=== PATIENT | female | born 2000 | race Caucasian/White ===

== ENCOUNTER 2022-05-05 16:47 | Inpatient (IN) | payer BC, SELFPAY ==
[2022-05-05 16:57] VITALS: BP 115/57; PULSE 87; RESP 18; TEMP 37.1; O2SAT 99
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
[2022-05-05 18:40] VITALS: BMI 27.6
[2022-05-05 22:00] VITALS: BP 128/90; PULSE 95; RESP 16; TEMP 36.7; O2SAT 99
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
--- NOTE | 2022-05-05 22:42 | PC.NURSE ---
Ros requested not to be awoken at 0600 for her synthroid, reports she normally takes it at home at 0800.
[2022-05-06] MEDS: Levothyroxine Sodium 112 MCG TABLET PO (08:18)
[2022-05-06] MEDS: Venlafaxine HCl ER 37.5 MG CAP.ER.24H PO (08:18)
[2022-05-06 08:43] VITALS: BP 113/57; PULSE 95; RESP 16; TEMP 36.7; O2SAT 100; BMI 27.3
[2022-05-06 09:06] LABS: Estimated Average Glucose 94 mg/dL; Hemoglobin A1c % 4.9 %
--- NOTE | 2022-05-06 09:20 | HO.PM.IMCN ---
History of Present Illness Data of Consult Service Date: 05/06/22 Primary Care Provider: Unknown Physician HPI Reason for consult: Routine Medical Consult This is a 21 yo F who is admitted to inpatient psych. Medical consult requested for routine medical H&P. Pt seen and examined. Denies physical complaints. Reports she has congenital hypothyroidism. PMH Congenital hypothyroidism PSH Denies SH Alcohol use (2-4 drinks, several times a month) Denies tobacco or illicit drugs FH Lung Ca in grandfather Review of Systems Review of Systems: negative except HPI PMFSH Social History Household Members: Family Household Members Other:: lives with mother Housing: House Do you presently have visiting nurse or other home services: No Patient Tobacco Use Status: Never used Tobacco Smoked in Last 30 Days: No e-Cigarette/Vaping Use: Never Used Patient Interested in Nicotine Replacement: No Patient Given Instructions on How to Stop Smoking: No Second Hand Smoke Exposure: No Use of substances other than those prescribed or required for medical reasons: No Currently Displaying Signs/Symptoms of Drug Intoxication Withdrawal: No Any prior treatment program specific to substance use: No Have you been hit, kicked, punched, or otherwise hurt by someone within the past year? If so, by whom?: No Do you feel safe in your current relationship?: Yes Is there a partner from a previous relationship who is making you feel unsafe now?: No Are you made to feel afraid or neglected: No Advance Directives: No Advance Directives Information Provided: No Advance Directives on File: No Do you have thoughts of harming others: None Do you have a plan to hurt others: No Plan Recently lost weight without trying: No How much weight loss: Not applicable Eating poorly because of decreased appetite: No Nutrition screen score: 0 Nutrition Risks: No Nutritional Risk Patient : No : No Poor oral hygiene: No Meds Allergies Allergy/AdvReac Type Severity Reaction Status Date / Time tagamet AdvReac Unknown Vomiting Uncoded 05/05/22 17:48 Active Medications: Current Medications Acetaminophen (Acetaminophen 325 Mg Tablet) 650 mg PO Q6H PRN PRN Reason: Headache/Pain Mild Scale (1-3) Al Hydroxide/Mg Hydroxide (Magnesium Hydrox/Alum Hydrox 30 Ml Oral.Susp) 30 ml PO Q6H PRN PRN Reason: Heartburn/Nausea Hydroxyzine HCl (Hydroxyzine Hcl 25 Mg Tablet) 25 mg PO Q6H PRN PRN Reason: Anxiety Levothyroxine Sodium (Levothyroxine Sodium 112 Mcg Tablet) 112 mcg PO DAILY@0600 [facility] Last Admin: 05/06/22 08:18 Dose: 112 mcg Lorazepam (Lorazepam 0.5 Mg Tablet) 0.5 mg PO BID PRN PRN Reason: Anxiety Magnesium Hydroxide (Milk Of Magnesia 30 Ml Oral.Susp) 30 ml PO DAILY PRN PRN Reason: Constipation Nicotine Polacrilex (Nicotine Polacrilex 2 Mg Gum) 4 mg BUCCAL Q2H PRN PRN Reason: Nicotine Cravings Trazodone HCl (Trazodone Hcl 50 Mg Tablet) 50 mg PO BEDTIME PRN PRN Reason: Insomnia Venlafaxine HCl (Venlafaxine Hcl Er 37.5 Mg Cap.Er.24h) 37.5 mg PO DAILY [facility] Last Admin: 05/06/22 08:18 Dose: 37.5 mg Home Medications Medication Instructions Recorded Confirmed Last Taken Type levothyroxine 112 mcg tablet 112 mcg PO DAILY 05/05/22 05/05/22 Unknown History lorazepam 0.5 mg tablet 0.5 mg PO QID PRN Anxiety 05/05/22 05/05/22 Unknown History venlafaxine 37.5 mg 37.5 mg PO DAILY 05/05/22 05/05/22 Unknown History capsule,extended release 24 hr Physical Exam Vital Signs and Narrative: Vital Signs: Last Vital Signs Temp 98.0 F 05/06/22 08:43 Pulse 95 05/06/22 08:43 Resp 16 05/06/22 08:43 BP 113/57 L 05/06/22 08:43 Pulse Ox 100 05/06/22 08:43 O2 Del Method 05/06/22 08:43 BMI result Body Mass Index 27.3 Const: Other: General - no acute distress, appears comfortable Cardiovascular - regular rate and rhythm, S1-S2 Lungs - normal respiratory effort, clear to auscultation bilaterally, no wheezing Abdomen - soft, nontender, no rebound or guarding Extremities - no edema bilaterally Neuro - awake and alert, no focal deficits; cn 2-12 intact Results Labs CBC and Chem 7: 05/06/22 08:22 Labs: Laboratory Results - last 24 hr 05/06/22 08:22 Estimat Average Glucose 94 Hemoglobin A1c % 4.9 Assessment and Plan (1) Routine medical exam: Status: Acute Plan 21 yo F with congenital hypothyroidism who is admitted to inpatient psych. Patient is medically stable. Continue her synthroid. Will sign off. Please reconsult PRN.
[2022-05-06 09:45] LABS: Alanine Aminotransferase 15 U/L (0-31); Albumin Level 4.3 g/dL (3.5-5.0); Alkaline Phosphatase 52 U/L (39-117); Anion Gap 10 (12-20); Aspartate Amino Transferase 17 U/L (5-31); Bilirubin Direct 0.2 mg/dL (0.0-0.5); Bilirubin Total 0.5 mg/dL (0.0-1.0); Blood Urea Nitrogen 12 mg/dL (9-16); Calcium 9.3 mg/dL (8.4-10.2); Carbon Dioxide 28 mmol/L (22-29); Chloride 104 mmol/L (96-108); Cholesterol 189 mg/dL; Creatinine Clr Calc Pharmacy 104.1; Estimated Glomerular Filt Rate > 60; Glucose Fasting 80 mg/dL (60-99); HDL Cholesterol 61 mg/dL; LDL Cholesterol Calculated 117 mg/dl; Potassium 4.1 mmol/L (3.3-5.1); Sodium 138 mmol/L (135-145); Total Protein 7.5 g/dL (6.5-8.0); Triglycerides 58 mg/dL
[2022-05-06 09:55] LABS: Free T4 (Free Thyroxine) 1.11 ng/dL (0.71-1.85); Thyroid Stimulating Hormone 8.49 uIU/mL (0.32-4.0)
[2022-05-06 10:14] LABS: Folate 17.3 ng/mL (> or = 4.0); Vitamin B12 410 pg/mL (200-900)
[2022-05-06] MEDS: Lithium Carbonate ER 450 MG TABLET.ER PO ×2 (13:16→21:08)
--- NOTE | 2022-05-06 15:00 | HO.PSYCHPN ---
Subjective Subjective Date of Service: 05/06/22 Reason For Visit: SI/ Depression Interim History: pt reports she has been dating someone for the past 2.5 years and has broken up with him four times in that period. she states everyone knows when she is depressed because that's when she breaks up with him. they usually reunite within a couple of weeks. 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 she reports she experiences both depression as well as chronic and severe anxiety. she states that recently the anxiety has been worse, or maybe that the anxiety is the primary problem and drives the depression. she states that because of the constant high anxiety with panic attacks, she became suicidal. MD broaches the mentioning of her increase in SI with recent med increases; her first response is that her mother does not support her being on medications. she does state that she was on prozac in october when she became suicidal. in addition to her current effexor, she also believes she has been tried on lexapro, celexa, and cymbalta. she believes they simply did not help her and also caused leg shaking and insomnia. regarding her recent dose escalation in effexor, she reports at 112.5 she experienced tremors and insomnia and so only took it at that dose for two days. she then continued at 75 mg daily before being decreased to 37.5 mg daily at admission here. she reports that all of the women on her mother's side of the family have substantial to severe anxiety, with an aunt having agoraphobia and her grandmother having OCD. she reports a maternal uncle has bipolar disorder. expresses concern she may be experiencing bipolar disorder as well. pt agrees to leave effexor as it is and try lithium. R/B of lithium discussed, including renal and thyroid toxicity. Mental Status Exam Mental Status Exam Narrative: calm, cooperative. No Tics or Tremors. No abnormal involuntary movements. Mood is depressed and anxious, affect is normo-intense and non-labile. speech nml rate, amount, loudness, tone, latency. Thoughts are coherent, organized, linear, logical. no SI/SIBI/HI/AVH expressed. No known cognitive or memory impairment. Insight/ Judgment limited but adequate. Diagnostics Vital Signs (24Hr): Vital Signs - 24 hr 05/05/22 16:57 05/05/22 22:00 05/06/22 08:43 Temperature 98.7 F 98.1 F 98.0 F Pulse Rate 87 95 95 Respiratory Rate 18 16 16 Blood Pressure 115/57 L 128/90 H 113/57 L Pulse Oximetry 99 99 100 Oxygen Delivery Method Room Air Room Air Room Air BMI result Body Mass Index 27.3 Labs Results: 05/06/22 08:22 Labs: Laboratory Results - last 48 hr 05/06/22 05/06/22 05/06/22 08:22 08:22 08:22 Sodium 138 Potassium 4.1 Chloride 104 Carbon Dioxide 28 Anion Gap 10 L BUN 12 Creatinine 0.84 Estim Creat Clear Calc 104.1 Estimated GFR > 60 Fasting Glucose 80 Estimat Average Glucose 94 Hemoglobin A1c % 4.9 Calcium 9.3 Total Bilirubin 0.5 Direct Bilirubin 0.2 AST 17 ALT 15 Alkaline Phosphatase 52 Total Protein 7.5 Albumin 4.3 Triglycerides 58 Cholesterol 189 LDL Cholesterol, Calc 117 HDL Cholesterol 61 Vitamin B12 410 Folate 17.3 TSH 8.49 H Free T4 1.11 Medications Medications Current Medications Acetaminophen (Acetaminophen 325 Mg Tablet) 650 mg PO Q6H PRN PRN Reason: Headache/Pain Mild Scale (1-3) Al Hydroxide/Mg Hydroxide (Magnesium Hydrox/Alum Hydrox 30 Ml Oral.Susp) 30 ml PO Q6H PRN PRN Reason: Heartburn/Nausea Hydroxyzine HCl (Hydroxyzine Hcl 25 Mg Tablet) 25 mg PO Q6H PRN PRN Reason: Anxiety Levothyroxine Sodium (Levothyroxine Sodium 112 Mcg Tablet) 112 mcg PO DAILY@0600 [facility] Last Admin: 05/06/22 08:18 Dose: 112 mcg [place] Carbonate ([place] Carbonate Er 450 Mg Tablet.Er) 450 mg PO BID [facility] Last Admin: 05/06/22 13:16 Dose: 450 mg Lorazepam (Lorazepam 0.5 Mg Tablet) 0.5 mg PO BID PRN PRN Reason: Anxiety Magnesium Hydroxide (Milk Of Magnesia 30 Ml Oral.Susp) 30 ml PO DAILY PRN PRN Reason: Constipation Nicotine Polacrilex (Nicotine Polacrilex 2 Mg Gum) 4 mg BUCCAL Q2H PRN PRN Reason: Nicotine Cravings Trazodone HCl (Trazodone Hcl 50 Mg Tablet) 50 mg PO BEDTIME PRN PRN Reason: Insomnia Venlafaxine HCl (Venlafaxine Hcl Er 37.5 Mg Cap.Er.24h) 37.5 mg PO DAILY [facility] Last Admin: 05/06/22 08:18 Dose: 37.5 mg Allergies Allergies Allergy/AdvReac Type Severity Reaction Status Date / Time tagamet AdvReac Unknown Vomiting Uncoded 05/05/22 17:48 Assessment & Plan Assessment & Plan (1) MDD (major depressive disorder), recurrent episode, moderate: Status: Acute Code(s): F33.1 - Major depressive disorder, recurrent, moderate (2) Routine medical exam: Status: Acute Code(s): Z00.00 - Encounter for general adult medical examination without abnormal findings Plan would rule out bipolar disorder before proceeding with Tx for unipolar depression. pt's negative reactions to SSRIs and SNRIs, per reported Hx, supports ruling out bipolar disorder, as does pt's very persistent and severe c/o anxiety and panic (which is sometimes a manifestation of lorrie). start lithium 450 BID. if lithium does not create a marked change in her mood, bipolar disorder will be essentially ruled out and treatment approaches to unipolar depression and anxiety disorders can be pursued. I spent ___45___ minutes with the patient and/or on the patient floor today, greater than?50% of which was spent counseling/coordinating care. Reason for contiued inpatient stay Substantial Risk for: harm to self, inability to function and rapid decompensation
[2022-05-06 21:00] VITALS: BP 118/65; PULSE 95; TEMP 36.8; O2SAT 95
[2022-05-07] MEDS: Levothyroxine Sodium 112 MCG TABLET PO (09:29)
[2022-05-07] MEDS: Venlafaxine HCl ER 37.5 MG CAP.ER.24H PO (09:29)
[2022-05-07] MEDS: Lithium Carbonate ER 450 MG TABLET.ER PO (09:29)
[2022-05-07 09:31] VITALS: BP 123/74; PULSE 76; RESP 16; TEMP 36.6; O2SAT 99
[2022-05-07] MEDS: LORazepam 0.5 MG TABLET PO ×2 (12:39→23:58)
--- NOTE | 2022-05-07 15:19 | P.PNPSI_ITS ---
Subjective Subjective Date of Service: 05/07/22 Reason For Visit: SI/ Depression Interim History: pt reprots since admission to the hospital she has had minimal anxiety and no panic or anxiety spikes. she also reports she is not feeling sad. denies SI. states this is what happened when she was admitted at [facility] as well. once on the unit she felt much better in terms of both anxiety and depression but then once she returned home it all came back. suggests this essentially rules out bipolar disorder and lithium can be stopped, which is done. MD discusses clonidine for anxiety/panic and pt declines to consider it due to risk of hypotension and fainting, which she reports she is especially scared of. discuss the possibility of SNRI causing anxiety due to NE component and possibility of trying SSRI only. agrees to zoloft trial, to start at 50 mg daily. effexor DCed. per staff, anx 3 and dep 5. missing home. sleeping well. attending groups. reading, eating. feeling safe on the unit. Mental Status Exam Mental Status Exam Narrative: calm, cooperative. No Tics or Tremors. No abnormal involuntary movements. Mood is not sad, not particularly anxious. affect is full range, normo-intense and non-labile. speech nml rate, amount, loudness, tone, latency. Thoughts are coherent, organized, linear, logical. denies SI. no SIBI/HI/AVH expressed. No known cognitive or memory impairment. Insight/ Judgment limited but adequate. Diagnostics Vital Signs (24Hr): Vital Signs - 24 hr 05/06/22 21:00 05/07/22 09:31 Temperature 98.3 F 97.9 F Pulse Rate 95 76 Respiratory Rate 16 Blood Pressure 118/65 123/74 Pulse Oximetry 95 99 Oxygen Delivery Method Room Air Room Air BMI result Body Mass Index 27.3 Labs Results: 05/06/22 08:22 Labs: Laboratory Results - last 48 hr 05/06/22 05/06/22 05/06/22 08:22 08:22 08:22 Sodium 138 Potassium 4.1 Chloride 104 Carbon Dioxide 28 Anion Gap 10 L BUN 12 Creatinine 0.84 Estim Creat Clear Calc 104.1 Estimated GFR > 60 Fasting Glucose 80 Estimat Average Glucose 94 Hemoglobin A1c % 4.9 Calcium 9.3 Total Bilirubin 0.5 Direct Bilirubin 0.2 AST 17 ALT 15 Alkaline Phosphatase 52 Total Protein 7.5 Albumin 4.3 Triglycerides 58 Cholesterol 189 LDL Cholesterol, Calc 117 HDL Cholesterol 61 Vitamin B12 410 Folate 17.3 TSH 8.49 H Free T4 1.11 Medications Medications Current Medications Acetaminophen (Acetaminophen 325 Mg Tablet) 650 mg PO Q6H PRN PRN Reason: Headache/Pain Mild Scale (1-3) Al Hydroxide/Mg Hydroxide (Magnesium Hydrox/Alum Hydrox 30 Ml Oral.Susp) 30 ml PO Q6H PRN PRN Reason: Heartburn/Nausea Hydroxyzine HCl (Hydroxyzine Hcl 25 Mg Tablet) 25 mg PO Q6H PRN PRN Reason: Anxiety Levothyroxine Sodium (Levothyroxine Sodium 112 Mcg Tablet) 112 mcg PO DAILY@0600 [facility] Last Admin: 05/07/22 09:29 Dose: 112 mcg Lorazepam (Lorazepam 0.5 Mg Tablet) 0.5 mg PO BID PRN PRN Reason: Anxiety Last Admin: 05/07/22 12:39 Dose: 0.5 mg Magnesium Hydroxide (Milk Of Magnesia 30 Ml Oral.Susp) 30 ml PO DAILY PRN PRN Reason: Constipation Nicotine Polacrilex (Nicotine Polacrilex 2 Mg Gum) 4 mg BUCCAL Q2H PRN PRN Reason: Nicotine Cravings Sertraline HCl (Sertraline Hcl 50 Mg Tablet) 50 mg PO DAILY [facility] Trazodone HCl (Trazodone Hcl 50 Mg Tablet) 50 mg PO BEDTIME PRN PRN Reason: Insomnia Allergies Allergies Allergy/AdvReac Type Severity Reaction Status Date / Time tagamet AdvReac Unknown Vomiting Uncoded 05/05/22 17:48 Assessment & Plan Assessment & Plan (1) MDD (major depressive disorder), recurrent episode, moderate: Status: Acute Code(s): F33.1 - Major depressive disorder, recurrent, moderate (2) Routine medical exam: Status: Acute Code(s): Z00.00 - Encounter for general adult medical examination without abnormal findings Plan 05/06: would rule out bipolar disorder before proceeding with Tx for unipolar depression. pt's negative reactions to SSRIs and SNRIs, per reported Hx, supports ruling out bipolar disorder, as does pt's very persistent and severe c/o anxiety and panic (which is sometimes a manifestation of lorrie). start lithium 450 BID. if lithium does not create a marked change in her mood, bip olar disorder will be essentially ruled out and treatment approaches to unipolar depression and anxiety disorders can be pursued. 05/07: pt feels neither depressed nor very anxious. states same happened upon admission to [facility], then she went home and depression and anxiety flooded back. MD observes in this case bipolar disorder unlikely and lithium stopped. pt agrees to DC SNRI in favor of SSRI to minimize risk of med-induced anxiety. zoloft 50 mg daily started today. I spent ___35___ minutes with the patient and/or on the patient floor today, greater than?50% of which was spent counseling/coordinating care. Reason for contiued inpatient stay Substantial Risk for: inability to function and rapid decompensation
[2022-05-07] MEDS: traZODone HCL 50 MG TABLET PO (23:58)
[2022-05-08 08:50] VITALS: BP 137/71; PULSE 76; RESP 20; TEMP 36.6; O2SAT 96
[2022-05-08] MEDS: Levothyroxine Sodium 112 MCG TABLET PO (08:52)
[2022-05-08] MEDS: Sertraline HCL 50 MG TABLET PO (08:52)
--- NOTE | 2022-05-08 17:03 | P.PNPSI_ITS ---
Subjective Subjective Date of Service: 05/08/22 Reason For Visit: SI/ Depression Interim History: started zoloft today. mood right in the middle. not good or bad. just OK. per staff, bright affect. no concerns. Mental Status Exam Mental Status Exam Narrative: calm, cooperative. No Tics or Tremors. No abnormal involuntary movements. Mood is right in the middle. not good or bad. just OK. affect is full range, normo-intense and non-labile. speech nml rate, amount, loudness, tone, latency. Thoughts are coherent, organized, linear, logical. no SI/SIBI/HI/AVH expressed. No known cognitive or memory impairment. Insight/ Judgment limited but adequate. Diagnostics Vital Signs (24Hr): Vital Signs - 24 hr 05/08/22 08:50 Temperature 97.8 F Pulse Rate 76 Respiratory Rate 20 Blood Pressure 137/71 Pulse Oximetry 96 Oxygen Delivery Method Room Air BMI result Body Mass Index 27.3 Labs Results: 05/06/22 08:22 Medications Medications Current Medications Acetaminophen (Acetaminophen 325 Mg Tablet) 650 mg PO Q6H PRN PRN Reason: Headache/Pain Mild Scale (1-3) Al Hydroxide/Mg Hydroxide (Magnesium Hydrox/Alum Hydrox 30 Ml Oral.Susp) 30 ml PO Q6H PRN PRN Reason: Heartburn/Nausea Hydroxyzine HCl (Hydroxyzine Hcl 25 Mg Tablet) 25 mg PO Q6H PRN PRN Reason: Anxiety Levothyroxine Sodium (Levothyroxine Sodium 112 Mcg Tablet) 112 mcg PO DAILY@0600 [facility] Last Admin: 05/08/22 08:52 Dose: 112 mcg Lorazepam (Lorazepam 0.5 Mg Tablet) 0.5 mg PO BID PRN PRN Reason: Anxiety Last Admin: 05/07/22 23:58 Dose: 0.5 mg Magnesium Hydroxide (Milk Of Magnesia 30 Ml Oral.Susp) 30 ml PO DAILY PRN PRN Reason: Constipation Nicotine Polacrilex (Nicotine Polacrilex 2 Mg Gum) 4 mg BUCCAL Q2H PRN PRN Reason: Nicotine Cravings Sertraline HCl (Sertraline Hcl 50 Mg Tablet) 50 mg PO DAILY [facility] Last Admin: 05/08/22 08:52 Dose: 50 mg Trazodone HCl (Trazodone Hcl 50 Mg Tablet) 50 mg PO BEDTIME PRN PRN Reason: Insomnia Last Admin: 05/07/22 23:58 Dose: 50 mg Allergies Allergies Allergy/AdvReac Type Severity Reaction Status Date / Time tagamet AdvReac Unknown Vomiting Uncoded 05/05/22 17:48 Assessment & Plan Assessment & Plan (1) MDD (major depressive disorder), recurrent episode, moderate: Status: Acute Code(s): F33.1 - Major depressive disorder, recurrent, moderate (2) Routine medical exam: Status: Acute Code(s): Z00.00 - Encounter for general adult medical examination without abnormal findings Plan 05/06: would rule out bipolar disorder before proceeding with Tx for unipolar depression. pt's negative reactions to SSRIs and SNRIs, per reported Hx, supports ruling out bipolar disorder, as does pt's very persistent and severe c/o anxiety and panic (which is sometimes a manifestation of lorrie). start lithium 450 BID. if lithium does not create a marked change in her mood, bipolar disorder will be essentially ruled out and treatment approaches to unipolar depression and anxiety disorders can be pursued. 05/07: pt feels neither depressed nor very anxious. states same happened upon a dmission to [place], then she went home and depression and anxiety flooded back. MD observes in this case bipolar disorder unlikely and lithium stopped. pt agrees to DC SNRI in favor of SSRI to minimize risk of med-induced anxiety. zoloft 50 mg daily started today. 05/08: continue current mgmt I spent ___15___ minutes with the patient and/or on the patient floor today, greater than?50% of which was spent counseling/coordinating care. Reason for contiued inpatient stay Substantial Risk for: inability to function and rapid decompensation
[2022-05-08 23:15] VITALS: BP 129/71; PULSE 115; RESP 20; TEMP 36.8; O2SAT 95
[2022-05-08] MEDS: traZODone HCL 50 MG TABLET PO (23:18)
[2022-05-08] MEDS: LORazepam 0.5 MG TABLET PO (23:18)
[2022-05-09 09:20] VITALS: BP 114/67; PULSE 80; RESP 20; TEMP 36.6; O2SAT 97
[2022-05-09] MEDS: Sertraline HCL 50 MG TABLET PO (09:44)
[2022-05-09] MEDS: Levothyroxine Sodium 112 MCG TABLET PO (09:44)
--- NOTE | 2022-05-09 13:56 | P.PNPSI_ITS ---
Subjective Subjective Date of Service: 05/09/22 Reason For Visit: SI/ Depression Interim History: pt feeling melancholy and tired. reports she was very anxious last night, thinking about returning to all the problems and challenges in her life that have not changed. discuss the utility of therapy and medications for her, what is reasonable and achievable. discuss call MD had with her mother of earlier today and her mother's insights regarding that she never has had downtime in her life prior to now and that perhaps it is a difficult transition to spending more time alone and without activities. asks to discharge tuesday. per staff, mother is concerned she has made daughter too busy in her life and now she cannot cope with being alone or having down time. pt is anxious the meds aren't working and she'll be DCed and things will be the same when she gets home. Mental Status Exam Mental Status Exam Narrative: calm, cooperative. No Tics or Tremors. No abnormal involuntary movements. Mood is laurie. could be better. affect is full range, normo-intense and non-labile. speech nml rate, amount, loudness, tone, latency. Thoughts are coherent, organized, linear, logical. no SI/SIBI/HI/AVH expressed. No known cognitive or memory impairment. Insight/ Judgment limited but adequate. Diagnostics Vital Signs (24Hr): Vital Signs - 24 hr 05/08/22 23:15 05/09/22 09:20 Temperature 98.3 F 97.9 F Pulse Rate 115 H 80 Respiratory Rate 20 20 Blood Pressure 129/71 114/67 Pulse Oximetry 95 97 Oxygen Delivery Method Room Air Room Air BMI result Body Mass Index 27.3 Labs Results: 05/06/22 08:22 Medications Medications Current Medications Acetaminophen (Acetaminophen 325 Mg Tablet) 650 mg PO Q6H PRN PRN Reason: Headache/Pain Mild Scale (1-3) Al Hydroxide/Mg Hydroxide (Magnesium Hydrox/Alum Hydrox 30 Ml Oral.Susp) 30 ml PO Q6H PRN PRN Reason: Heartburn/Nausea Alprazolam (Alprazolam 0.25 Mg Tablet) 0.25 mg PO BID PRN PRN Reason: severe anxiety Hydroxyzine HCl (Hydroxyzine Hcl 25 Mg Tablet) 25 mg PO Q6H PRN PRN Reason: Anxiety Levothyroxine Sodium (Levothyroxine Sodium 112 Mcg Tablet) 112 mcg PO DAILY@0600 [facility] Last Admin: 05/09/22 09:44 Dose: 112 mcg Magnesium Hydroxide (Milk Of Magnesia 30 Ml Oral.Susp) 30 ml PO DAILY PRN PRN Reason: Constipation Nicotine Polacrilex (Nicotine Polacrilex 2 Mg Gum) 4 mg BUCCAL Q2H PRN PRN Reason: Nicotine Cravings Sertraline HCl (Sertraline Hcl 50 Mg Tablet) 50 mg PO DAILY [facility] Last Admin: 05/09/22 09:44 Dose: 50 mg Trazodone HCl (Trazodone Hcl 25 Mg Halftab) 25 mg PO BEDTIME PRN PRN Reason: Insomnia Allergies Allergies Allergy/AdvReac Type Severity Reaction Status Date / Time tagamet AdvReac Unknown Vomiting Uncoded 05/05/22 17:48 Assessment & Plan Assessment & Plan (1) MDD (major depressive disorder), recurrent episode, moderate: Status: Acute Code(s): F33.1 - Major depressive disorder, recurrent, moderate (2) Routine medical exam: Status: Acute Code(s): Z00.00 - Encounter for general adult medical examination without abnormal findings Plan 05/06: would rule out bipolar disorder before proceeding with Tx for unipolar dep ression. pt's negative reactions to SSRIs and SNRIs, per reported Hx, supports ruling out bipolar disorder, as does pt's very persistent and severe c/o anxiety and panic (which is sometimes a manifestation of lorrie). start lithium 450 BID. if lithium does not create a marked change in her mood, bipolar disorder will be essentially ruled out and treatment approaches to unipolar depression and an xiety disorders can be pursued. 05/07: pt feels neither depressed nor very anxious. states same happened upon admission to [place], then she went home and depression and anxiety flooded back. MD observes in this case bipolar disorder unlikely and lithium stopped. pt agrees to DC SNRI in favor of SSRI to minimize risk of med-induced anxiety. zoloft 50 mg daily started today. 05/08: continue current mgmt 05/09: decrease trazodone PRN to 25 as 50 appears to be causing lingering sedation in day. DC ativan and start xanax for panic attacks. I spent ___35___ minutes with the patient and/or on the patient floor today, greater than?50% of which was spent counseling/coordinating care. Reason for contiued inpatient stay Substantial Risk for: harm to self, inability to function and rapid decompensation
[2022-05-09 21:05] VITALS: BP 111/73; PULSE 90; RESP 16; TEMP 36.7; O2SAT 100
[2022-05-09] MEDS: traZODone HCL 25 MG HALFTAB PO (23:42)
[2022-05-10 08:57] VITALS: BP 110/71; PULSE 80; RESP 16; TEMP 36.6; O2SAT 99
[2022-05-10] MEDS: Levothyroxine Sodium 112 MCG TABLET PO (08:58)
[2022-05-10] MEDS: Sertraline HCL 50 MG TABLET PO (08:58)
--- NOTE | 2022-05-10 13:44 | P.PNPSI_ITS ---
Subjective Subjective Date of Service: 05/10/22 Reason For Visit: SI/ Depression Interim History: calm, cooperative. bubbly, ebullient. says she is having a good day today, a friend visited this morning. got 7 hrs sleep last night. feeling ready for discharge, needs new providers. plan for discharge tomorrow. per staff, isolative, withdrawn. sedated in the morning. anxious re discharge. dep/anx 5. broke up with BF, denied SI. slept through the night. Mental Status Exam Mental Status Exam Narrative: calm, cooperative. No Tics or Tremors. No abnormal involuntary movements. Mood is euthymic. affect is full range, normo-intense and non-labile. speech nml rate, amount, loudness, tone, latency. Thoughts are coherent, organized, linear, logical. no SI/SIBI/HI/AVH expressed. No known cognitive or memory impairment. Insight/ Judgment limited but adequate. Diagnostics Vital Signs (24Hr): Vital Signs - 24 hr 05/09/22 21:05 05/10/22 08:57 Temperature 98.1 F 97.8 F Pulse Rate 90 80 Respiratory Rate 16 16 Blood Pressure 111/73 110/71 Pulse Oximetry 100 99 Oxygen Delivery Method Room Air Room Air BMI result Body Mass Index 27.3 Labs Results: 05/06/22 08:22 Medications Medications Current Medications Acetaminophen (Acetaminophen 325 Mg Tablet) 650 mg PO Q6H PRN PRN Reason: Headache/Pain Mild Scale (1-3) Al Hydroxide/Mg Hydroxide (Magnesium Hydrox/Alum Hydrox 30 Ml Oral.Susp) 30 ml PO Q6H PRN PRN Reason: Heartburn/Nausea Alprazolam (Alprazolam 0.25 Mg Tablet) 0.25 mg PO BID PRN PRN Reason: severe anxiety Hydroxyzine HCl (Hydroxyzine Hcl 25 Mg Tablet) 25 mg PO Q6H PRN PRN Reason: Anxiety Levothyroxine Sodium (Levothyroxine Sodium 112 Mcg Tablet) 112 mcg PO DAILY@06 00 [facility] Last Admin: 05/10/22 08:58 Dose: 112 mcg Magnesium Hydroxide (Milk Of Magnesia 30 Ml Oral.Susp) 30 ml PO DAILY PRN PRN Reason: Constipation Nicotine Polacrilex (Nicotine Polacrilex 2 Mg Gum) 4 mg BUCCAL Q2H PRN PRN Reason: Nicotine Cravings Sertraline HCl (Sertraline Hcl 50 Mg Tablet) 50 mg PO DAILY [facility] Last Admin: 05/10/22 08:58 Dose: 50 mg Trazodone HCl (Trazodone Hcl 25 Mg Halftab) 25 mg PO BEDTIME PRN PRN Reason: Insomnia Last Admin: 05/09/22 23:42 Dose: 25 mg Allergies Allergies Allergy/AdvReac Type Severity Reaction Status Date / Time tagamet AdvReac Unknown Vomiting Uncoded 05/05/22 17:48 Assessment & Plan Assessment & Plan (1) MDD (major depressive disorder), recurrent episode, moderate: Status: Acute Code(s): F33.1 - Major depressive disorder, recurrent, moderate (2) Routine medical exam: Status: Acute Code(s): Z00.00 - Encounter for general adult medical examination without abnormal findings Plan 05/06: would rule out bipolar disorder before proceeding with Tx for unipolar depression. pt's negative reactions to SSRIs and SNRIs, per reported Hx, supports ruling out bipolar disorder, as does pt's very persistent and severe c/o anxiety and panic (which is sometimes a manifestation of lorrie). start lithium 450 BID. if lithium does not create a marked change in her mood, bipolar disorder will be essentially ruled out and treatment approaches to unipolar depression and anxiety disorders can be pursued. 05/07: pt feels neither depressed nor very anxious. states same happened upon admission to [place], then she went home and depression and anxiety flooded back. MD observes in this case bipolar disorder unlikely and lithium stopped. pt agrees to DC SNRI in favor of SSRI to minimize risk of med-induced anxiety. zoloft 50 mg daily started today. 05/08: continue current mgmt 05/09: decrease trazodone PRN to 25 as 50 appears to be causing lingering sedation in day. DC ativan and start xanax for panic attacks. 05/10: good mood today, had a visitor. interested in discharge tomorrow. no complaints or requests. I spent ____20__ minutes with the patient and/or on the patient floor today, greater than?50% of which was spent counseling/coordinating care. Reason for contiued inpatient stay Substantial Risk for: inability to function and rapid decompensation
[2022-05-10 20:51] VITALS: BP 118/74; PULSE 95; RESP 16; TEMP 36.8; O2SAT 96
[2022-05-10] MEDS: traZODone HCL 25 MG HALFTAB PO (22:35)
[2022-05-11] MEDS: traZODone HCL 25 MG HALFTAB PO (00:18)
[2022-05-11 08:23] VITALS: BP 116/72; PULSE 84; RESP 17; TEMP 36.7; O2SAT 99
[2022-05-11] MEDS: Sertraline HCL 50 MG TABLET PO (08:26)
[2022-05-11] MEDS: Levothyroxine Sodium 112 MCG TABLET PO (08:26)
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
--- NOTE | 2022-05-11 11:32 | PC.NURSE ---
Patient is alert and oriented x4. Patient is pleasant and cooperative upon approach. In agreement with discharge and discharge instructions. Patient reports that she is having some mild anxiety, but it is manageable. I am looking forward to applying the things that I have learned here . Patient denies SI/HI/AH/VH. Patient denies acute physical complaints at this time.
== END 2022-05-11 11:41 | disposition home or self-care (01) | DRG 751 ==
PROVIDERS: Admitting Provider Psychiatry & Neurology Psychiatry; Visit Provider Psychiatry & Neurology Psychiatry
DX: F33.1 Major depressive disorder, recurrent, moderate (principal); R45.851 Suicidal ideations; F41.1 Generalized anxiety disorder; Z79.890 Hormone replacement therapy; Z88.8 Allergy status to other drugs, medicaments and biological substances; Z79.899 Other long term (current) drug therapy
CPT/HCPCS: 36415; 80053; 80061; 80076; 82607; 82746; 83036; 84439; 84443

== ENCOUNTER 2025-01-09 11:12 | Outpatient (REF) | payer BC, SELFPAY ==
[2025-01-09 13:27] LABS: C Reactive Protein < 0.04 mg/dL (< or = 0.50)
[2025-01-09 13:59] LABS: Folate 10.2 ng/mL (> or = 4.0); Vitamin B12 789 pg/mL (200-900)
--- OUTSIDE RECORDS SUMMARY | 2025-01-09 14:22 | XMS_ITS | Encounter Summary ---
Author Organization [facility] Address [address] [place] [address] Care Team Providers Care Fill Manager Name Role Phone Sofia Haddad NP Primary Care Provider [phone] Reason for Visit * Reason Onset Date Comments Med Refill 12/11/2024 Encounter Details Date Type Department Care Team (Late st Contact Info) Description 12/11/2024 Telephone Obstetrics and Gynecology [facility] [address] [place] [phone] Marbella Meredith, [address] [id number] Med Refill Social History Tobacco Use Types [...] for your loved ones. For example, child advocate or elderly care for an older adult? [...] Gynecology - [address] [place] [address] Bailee Albarran DO [address] [address] 01/31/2025 3:30 PM EDT Consult Gastroenterology - [address] [employer] [address] [place] [phone] Radha Sanon, WATERWORKS CHIEF ENGINEER [address] [facility] [address] [place] [address] documented as of this encounter Visit Diagnoses Not on filedocumented in this encounter Additional Health Concerns Assessment Noted Time PHQ-9 Depression Total Score: 0 11/18/19 5:50 PM EST documented as of this encounter Care Teams Fill Manager Relationship Specialty Start Date End Date Sofia Haddad NP [address] [facility] [address] [place] [phone] PCP - General Internal Medicine 01/08/25 documented as of this encounter
--- OUTSIDE RECORDS SUMMARY | 2025-01-09 14:22 | XMS_ITS | Clinical Summary ---
Author Organization [facility] Address [address] [place] [address] Care Team Providers Care Parent Aide Name Role Phone Sofia Haddad NP Primary [...] EST - 01/02/2025 4:25 PM EST Emergency [facility] [address] [place] [address] Abdominal pain, epigastric (Primary Dx) Discharge Disposition: Home or Self Care 01/02/2025 Telephone Obstetrics and Gynecology - [address] [address] Marbella Meredith CNM Med Refill 01/01/2025 9:08 PM EST - 01/01/2025 11:58 PM EST Emergency [facility] [address] [place] [phone] Jose Armando Umana MD PUD (peptic ulcer disease) (Primary Dx) Discharge Disposition: Home or Self Care 12/25/2024 5:22 PM EST - 12/25/2024 11:59 PM EST Hospital Encounter Radiology Department - [address] [address] Dysmenorrhea Discharge Disposition: Home or Self Care 12/11/2024 Telephone Obstetrics and Gynecology - [address] [address] Marbella Meredith CNM Med Refill 12/10/2024 Telephone Obstetrics and Gynecology - [address] [address] Marbella Meredith CNM 11/21/2024 Telephone Obstetrics and Gynecology [address] [address] Marbella Meredith CNM Request For Order(s) 11/19/2024 2:00 PM EST Office Visit Obstetrics and Gynecology - [address] [address] Marbella Meredith CNM Women's annual routine gynecological examination (Primary Dx); Dysmenorrhea; Hypothyroidism, unspecified type from Last 3 Months Immunizations Name Administration Dates Next Due DTaP (Infanrix) 6wks to less than 7yo ,11/01/2002,01/29/2002,11/29,2001 [id number] (Pentacel) 2mo to less than 5yo 11/01/2002,01/29/2002,2001,09/19 [...] Mother's Sister Mercedez Gallardo Other: MGGM with [place] age 35 and Mother's side Breast cancer [...] for your loved ones. For example, child and family therapist or elderly care for an older adult? [...] EDT Office [facility] [address] [place] [address] Bailee lAbarran DO [address] [place] [address] 01/31/2025 3:30 PM EDT Consult Gastroenterology - [address] [place] [address] Radha Sanon, OBSTETRICIAN/GYNECOLOGIST [address] [address] Health Maintenance Due Date Last Done Comments [...] on 01/01/2025 10:33 PM. Workstation Name - [id number] -------- FINAL REPORT -------- Dictated By: Darrius Frausto Dictated Date: 01/01/2025 23:31 ET Assigned Physician: Darrius Frausto Reviewed and Electronically Signed By: Darrius Frausto Signed Date: 01/01/2025 23:33 ET Workstation ID: [id number] Transcribed By: Self Edit Transcribed Date: 01/01/2025 [...] Frausto on 01/01/2025 10:33 PM.Workstation Name - [id number] -------- FINAL REPORT -------- Dictated By: Darrius Frausto Dictated Date: 01/01/2025 23:31 ET Assigned Physician: Darrius Frausto Reviewed and Electronically Signed By: Darrius Frausto Signed Date: 01/01/2025 23:33 ET Workstation ID: [id number] Transcribed By: Self Edit Transcribed Date: 01/01/2025 [...] ED Physician in the absence of a government relations analyst: yes ?? Interpretation: ??Interpretation: normal ?Details: ??Normal sinus rhythm with a ventricular rate of 61 bpm. ??PACs occasionally seen. ??Normal SC, QRS, QTc, axis. ??No acute ischemic changes. us Jose Armando Umana MD ECG ORDERABLES Final Result * ECG 12 lead (01/01/2025 9:37 PM EST) Ventricular Rate ECG 61 BPM GEMUSE Atrial Rate 61 BPM GEMUSE P-R Interval 140 ms GEMUSE QRS Duration 86 ms GEMUSE Q-T Interval 412 ms GEMUSE QTc 414 ms GEMUSE P Wave [place] 35 degrees GEMUSE R [place] 39 degrees GEMUSE T [place] 28 degrees GEMUSE ECG Interpretation Sinus rhythm with premature atrial complexes Otherwise normal ECG No previous ECGs available Confirmed by Nikko Newsome ([id number]) on 01/02/2025 2:12:49 PM GEMUSE 01/01/2025 9:37 PM EST 01/02/2025 2:12 PM EST us Jose Armando Umana MD ECG ORDERABLES Final Result GEMUSE * (ABNORMAL) CBC auto differential (01/01/2025 9:21 PM EST) Pathologist [facility] WBC 7.4 4.0 - 10.5 K/mcL LAB HEMETOLOGY METHOD 01/01/2025 9:35 PM [facility] RBC 4.46 4.20 - 5.40 M/mcL LAB HEMETOLOGY METHOD 01/01/2025 9:35 PM [facility] Hemoglobin 13.3 12.5 - 16.0 g/dL LAB HEMETOLOGY METHOD 01/01/2025 9:35 PM [facility] Hematocrit 39.2 37.0 - 47.0 % LAB HEMETOLOGY METHOD 01/01/2025 9:35 PM [facility] MCV 87.9 78.0 - 100.0 FL LAB HEMETOLOGY METHOD 01/01/2025 9:35 PM [facility] MCH 29.8 25.0 - 33.0 pcg LAB HEMETOLOGY METHOD 01/01/2025 9:35 PM [facility] MCHC 33.9 32.0 - 36.0 g/dL LAB HEMETOLOGY METHOD 01/01/2025 9:35 PM [facility] RDW 11.4(L) 12.1 - 16.2 % LAB HEMETOLOGY METHOD 01/01/2025 9:35 PM [facility] Platelets 271 150 - 450 K/mcL LAB HEMETOLOGY METHOD 01/01/2025 9:35 PM [facility] MPV 9.1 7.4 - 11.4 FL LAB HEMETOLOGY METHOD 01/01/2025 9:35 PM [facility] Neutrophils Relative 40.4(L) 44.0 - 74.0 % LAB HEMETOLOGY METHOD 01/01/2025 9:35 PM [facility] Lymphocytes Relative 50.0(H) 20.0 - 48.0 % LAB HEMETOLOGY METHOD 01/01/2025 9:35 PM [facility] Monocytes Relative 7.4 2.0 - 12.0 % LAB HEMETOLOGY METHOD 01/01/2025 9:35 PM [facility] Eosinophils Relative 1.4 0.0 - 6.0 % LAB HEMETOLOGY METHOD 01/01/2025 9:35 PM [facility] Basophils Relative 0.7 0.0 - 2.0 % LAB HEMETOLOGY METHOD 01/01/2025 9:35 PM [facility] Neutrophils Absolute 2.99 1.80 - 7.80 K/mcL LAB HEMETOLOGY METHOD 01/01/2025 9:35 PM [facility] Lymphocytes Absolute 3.70(H) 1.00 - 3.20 K/mcL LAB HEMETOLOGY METHOD 01/01/2025 9:35 PM [facility] Monocytes Absolute 0.55 0.00 - 0.80 K/mcL LAB HEMETOLOGY METHOD 01/01/2025 9:35 PM [facility] Eosinophils Absolute 0.10 0.00 - 0.50 K/mcL LAB HEMETOLOGY METHOD 01/01/2025 9:35 PM [facility] Basophils Absolute 0.05 0.00 - 0.20 K/mcL LAB HEMETOLOGY METHOD 01/01/2025 9:35 PM [facility] Blood Venous blood specimen / Unknown Venipuncture / Unknown 01/01/2025 9:21 PM EST 01/01/2025 9:33 PM EST Jose Armando Umana MD LAB BLOOD ORDERABLES Final Res ult [facility] [address] [place] [address], [place] [phone] * Lipase (01/01/2025 9:21 PM EST) [facility] Lipase 19 11 - 82 unit/L LAB CHEMISTRY METHOD 01/01/2025 9:57 PM EST [facility] Blood Venous blood specimen / Unknown Venipuncture / Unknown 01/01/2025 9:21 PM EST 01/01/2025 9:33 PM EST Jose Armando Umana MD LAB BLOOD ORDERABLES Final Res ult [facility] [address] [place] [address], [place] [phone] * Hepatic function panel (01/01/2025 9:21 PM EST) [facility] Total Protein 7.1 6.4 - 8.5 g/dL LAB CHEMISTRY METHOD 01/01/2025 9:57 PM EST [facility] Albumin 4.3 3.5 - 5.0 g/dL LAB CHEMISTRY METHOD 01/01/2025 9:57 PM EST [facility] Total Bilirubin 0.4 0.3 - 1.0 mg/dL LAB CHEMISTRY METHOD 01/01/2025 9:57 PM EST [facility] Bilirubin, Direct 0.1 0.0 - 0.2 mg/dL LAB CHEMISTRY METHOD 01/01/2025 9:57 PM EST [facility] Bilirubin, Indirect 0.3 mg/dL LAB CHEMISTRY METHOD 01/01/2025 9:57 PM [facility] ALT (SGPT) 12 7 - 52 unit/L LAB CHEMISTRY METHOD 01/01/2025 9:57 PM [facility] AST (SGOT) 17 5 - 40 unit/L LAB CHEMISTRY METHOD 01/01/2025 9:57 PM [facility] Alkaline Phosphatase 39 34 - 104 unit/L LAB CHEMISTRY METHOD 01/01/2025 9:57 PM [facility] Blood Venous blood specimen / Unknown Venipuncture / Unknown 01/01/2025 9:21 PM EST 01/01/2025 9:33 PM EST Jose Armando Umana MD LAB BLOOD ORDERABLES Final Res ult [facility] [address] [place] [address], [place] [phone] * Basic metabolic panel (01/01/2025 9:21 PM EST) Sodium 136 135 - 145 mmol/L LAB CHEMISTRY METHOD 01/01/2025 9:57 PM [facility] Potassium 3.8 3.5 - 5.1 mmol/L LAB CHEMISTRY METHOD 01/01/2025 9:57 PM [facility] Chloride 103 98 - 107 mmol/L LAB CHEMISTRY METHOD 01/01/2025 9:57 PM [facility] CO2 27 24 - 32 mmol/L LAB CHEMISTRY METHOD 01/01/2025 9:57 PM [facility] Anion Gap 6 5 - 14 LAB CHEMISTRY METHOD 01/01/2025 9:57 PM [facility] Glucose 91 70 - 199 mg/dL LAB CHEMISTRY METHOD 01/01/2025 9:57 PM [facility] BUN 17 7 - 17 mg/dL LAB CHEMISTRY METHOD 01/01/2025 9:57 PM EST [facility] Creatinine 0.96 0.50 - 1.00 mg/dL LAB CHEMISTRY METHOD 01/01/2025 9:57 PM [facility] eGFR 85 >=60 mL/min/1. 73m2 LAB CHEMISTRY METHOD 01/01/2025 9:57 PM [facility] Comment:Calculation based on the??Chronic Kidney Disease Epidemiology Collaboration (CKD-EPI) equation refit??without adjustment for race. BUN/Creatinine Ratio 17.7 12.0 - 20.0 LAB CHEMISTRY METHOD 01/01/2025 9:57 PM [facility] Calcium 9.2 8.4 - 10.2 mg/dL LAB CHEMISTRY METHOD 01/01/2025 9:57 PM [facility] Blood Venous blood specimen / Unknown Venipuncture / Unknown 01/01/2025 9:21 PM EST 01/01/2025 9:33 PM EST us Jose Armando Umana MD LAB BLOOD ORDERABLES Final Res ult [facility] [address] [place] [address], [place] [phone] * (ABNORMAL) Urinalysis with reflex microscopic and culture (01/01/2025 9:18 PM EST) Color, Urine Yellow Colorless, Yellow LAB URINALYSIS - AUTOMATED METHOD 01/01/2025 9:36 PM EST [facility] Clarity, Urine Slightly Cloudy(A) Clear LAB URINALYSIS - AUTOMATED METHOD 01/01/2025 9:36 PM [facility] Specific [place] Urine >=1.030 1.005 - 1.030 LAB URINALYSIS - AUTOMATED METHOD 01/01/2025 9:36 PM [facility] pH, Urine 5.5 5.0 - 8.0 pH LAB URINALYSIS - AUTOMATED METHOD 01/01/2025 9:36 PM [facility] Leukocytes, Urine Negative Negative WBCs/mcL LAB URINALYSIS - AUTOMATED METHOD 01/01/2025 9:36 PM [facility] Nitrite, Urine Negative Negative LAB URINALYSIS - AUTOMATED METHOD 01/01/2025 9:36 PM [facility] Protein, Urine 30(A) Negative mg/dL LAB URINALYSIS - AUTOMATED METHOD 01/01/2025 9:36 PM [facility] Glucose, Urine Negative Negative mg/dL LAB URINALYSIS - AUTOMATED METHOD 01/01/2025 9:36 PM [facility] Ketones, Urine Negative Negative mg/dL LAB URINALYSIS - AUTOMATED METHOD 01/01/2025 9:36 PM [facility] Blood, Urine Trace(A) Negative mg/dL LAB URINALYSIS - AUTOMATED METHOD 01/01/2025 9:36 PM [facility] Urine Urine specimen obtained by clean catch procedure / Unknown Non-blood Collection / Unknown 01/01/2025 9:18 PM EST 01/01/2025 9:33 PM EST us Jose Armando Umana MD LAB URINE ORDERABLES Final Res ult [facility] [address] [place] [address], [place] [phone] * (ABNORMAL) Urinalysis microscopic reflex urine culture (01/01/2025 9:18 PM EST) RBC, Urine 4(H) 0 - 3 /HPF 01/01/2025 9:40 PM EST [facility] WBC, Urine 4 0 - 5 /HPF 01/01/2025 9:40 PM EST [facility] Bacteria, Urine 1+(A) None /HPF 9:40 PM EST [facility] Squamous Epithelial, Urine 6(H) 0 - 5 /HPF 01/01/2025 9:40 PM EST [facility] Mucus, UA 1+ None /LPF 01/01/2025 9:40 PM EST [facility] Urine Urine specimen obtained by clean catch procedure / Unknown Non-blood Collection / Unknown 01/01/2025 9:18 PM EST 01/01/2025 9:33 PM EST Jose Armando Umana MD LAB URINE ORDERABLES Final Res ult Performing Organization Address City/[facility]/ZIP Co de Phone Number [facility] [address] [place] [address], [place] [phone] * Culture urine (01/01/2025 9:18 PM EST) Culture, Urine Mixed urogenital otto, no uropathogens present. Suggest repeat specimen, if clinically indicated. 01/03/2025 8:32 AM EST [facility] Urine Urine specimen obtained by clean catch procedure / Unknown Non-blood Collection / Unknown 01/01/2025 9:18 PM EST 01/01/2025 9:40 PM EST Jose Armando Umana MD LAB MICROBIOLOGY - GENERAL ORD ERABLES Final Result Performing Organization Address City/[facility]/ZIP Co de Phone Number [facility] [address] [place] [address], [place] [phone] * US Pelvis Non OB Complete w Transvaginal (12/25/2024 5:55 PM EST) Anatomical Region Laterality Modality Body, Pelvis Ultrasound 12/26/2024 8:08 AM EST Impressions 12/26/2024 8:11 AM EST No uterine or ovarian abnormality. POS [id number] -------- FINAL REPORT -------- Dictated By: Krystle Granger Dictated Date: 12/26/2024 08:08 ET Assigned Physician: Krystle Granger Reviewed and Electronically Signed By: Krystle Granger Signed Date: 12/26/2024 08:11 ET Workstation ID: [id number] Transcribed By: Self Edit Transcribed Date: 12/26/2024 [...] IMPRESSION: No uterine or ovarian abnormality. POS [id number] -------- FINAL REPORT -------- Dictated By: Krystle Granger Dictated Date: 12/26/2024 08:08 ET Assigned Physician: Krystle Granger Reviewed and Electronically Signed By: Krystle Granger Signed Date: 12/26/2024 08:11 ET Workstation ID: [id number] Transcribed By: Self Edit Transcribed Date: 12/26/2024 08:08 ET us Marbella Meredith CNM IMG US PROCEDURES Final Res ult * Chlamydia trachomatis and neisseria gonorrhoeae by tma, thinprep (11/19/2024 2:33 PM EST) N. gonorrhoeae, RNA Probe Negative Negative LAB MICROBIOLOGY METHOD 11/20/2024 12:[address] [facility] Chlamydia, RNA Probe Negative Negative LAB MICROBIOLOGY METHOD 11/20/2024 12:[address] [facility] Broom Cervix uteri structure / Unknown 11/19/2024 2:33 PM EST 11/20/2024 6:59 AM EST Marbella SAHA LAB CYTOLOGY ORDERABLES Fin al Result [facility] [address] [place] [address], [place] [phone] * Trichomonas vaginalis molecular study (11/19/2024 2:33 PM EST) Trichomonas vaginalis Negative Negative LAB MICROBIOLOGY METHOD 11/20/2024 12:[address] [facility] Broom Cervix uteri structure / Unknown 11/19/2024 2:33 PM EST 11/20/2024 6:59 AM EST us Marbella Meredith CNM LAB BLOOD ORDERABLES Final Result [facility] [address] [place] [address], [place] [phone] * Pap smear (11/19/2024 2:33 PM EST) Interpretation Negative for intraepithelial lesion or malignancy 11/22/2024 7:43 PM [facility] General Categorization Negative 11/22/2024 7:43 PM [facility] LMP 11/14/2024 11/22/2024 7:43 PM [facility] Specimen Adequacy Satisfactory for evaluation, endocervical/parisi sformation zone component present 11/22/2024 7:43 PM [facility] Pap Methodology Liquid Based Pap Test 11/22/2024 7:43 PM [facility] Disclaimer The Pap test is a screening test which carries an inherent false negative rate. These test results should be correlated with the patient's clinical findings and history. This Pap test was processed using an automated screening system. Technical cytopathology services provided by [facility], at [address] [place] [address] (CLIA # [id number]/Earle Parker MD, Recreational Aide.) 11/22/2024 7:43 PM [facility] Console Pap Interpretation Reported 11/22/2024 7:43 PM [facility] Broom Cervix uteri structure / Unknown 11/19/2024 2:33 PM EST 11/19/2024 2:33 PM EST Marbella Meredith [facility] CYTOLOGY ORDERABLES Fin al Result [facility] [address] [place] [address], * Lipid panel (03/23/2023) LDL/HDL Ratio 3 0 - 4 Triglycerides 48 0 - 150 mg/dL Cholesterol 172 0 - 200 mg/dL HDL 67 >=40 mg/dL LDL Cholesterol 96 0 - 100 mg/dL Blood Venous blood specimen / Unknown us Historical Provider LAB BLOOD ORDERABLES Pinky maria teresa Result from Last 3 Months or Most Recently Relevant to Health Maintenance Insurance [facility] Care Teams Parent Aide Relationship Specialty Start Date End Date Sofia Haddad NP [address] [place] [address] PCP - General Internal Medicine 01/08/25
--- OUTSIDE RECORDS SUMMARY | 2025-01-09 14:22 | XMS_ITS | Encounter Summary ---
Author Organization [facility] Address [address] [place] [address] Care Team Providers Care Packaging Engineer Name Role Phone Nani Soler MD Primary Care Provider [phone] Reason for Visit * Reason Comments Abdominal Pain Pt seen here yesterd ay for abd pain, dx with PUD with outpt follow up with GI. Pt given script for omeprazole. Encounter Details Date Type Department Care Team (Late st Contact Info) Description 01/02/2025 2:22 PM EST - 01/02/2025 4:25 PM EST [facility] Emergency [address] [place] [address] Abdominal pain, epigastric (Primary Dx) [...] for your loved ones. For example, child welfare social worker or elderly care for an older adult? [...] Care Everywhere. * Acid-Reducing Medicines: General Info ([place]) documented in this encounter Medications at Time [...] Grandfather Prem Gallardo Other (Other: MGGM with [place] age 35 and ) Mother's side Breast [...] discomfort. Patient educated that she can continue [id number] Maalox for further relief of symptoms Patient is safe for discharge with plan to manage discomfort or fevers with [id number] Tylenol and/or NSAIDS such as Motrin or [...] management and/or test interpretation with external health health care aide [] Admission/Observation - Patient's presentation, diagnostics, and/or [...] me for clarification. Padmini Mccarthy NP 01/02/25 6511 Padmini Mccarthy NP 01/02/25 8080 Cosigned by Murray Shearer MD at 01/02/2025 [...] Gynecology - [address] [place] [address] Bailee Albarran DO [address] [place] [address] 01/31/2025 3:30 PM EDT Consult Gastroenterology - [address] [place] [address] Radha Sanon, RADIATOR REPAIRER [address] [place] [address] documented as of this encounter Visit Diagnoses [...] documented as of this encounter Care Teams Packaging Engineer Relationship Specialty Start Date End Date Nani Soler MD PCP - General 02/03/23 01/07/25 documented as of this encounter
--- OUTSIDE RECORDS SUMMARY | 2025-01-09 14:22 | XMS_ITS | Encounter Summary ---
Author Organization [facility] Address [address] [place] [address] Care Team Providers Care Mattress And Foundation Sewer Name Role Phone Nani Soler MD Primary Care Provider [phone] Reason for Referral * Imaging (Routine) - Pending Review Specialty Diagnoses / Procedures Referred By Maria Cac zohra Referred To Contact Radiology Diagnoses Dysmenorrhea Procedures US Pelvis Non OB Complete w Transvaginal Marbella Meredith CNM [address] [place] [address] Phone: tel: fax: [facility] Referral ID Status Reason Start Date Expiration Date V isits Requested Visits Authorized [id number] Pending Review 12/21/2024 12/21/2025 1 1 Reason for Visit * Imaging (Routine) - Pending Review Specialty Diagnoses / Procedures Referred By Contjuan العلي Referred To Contact Radiology Diagnoses Dysmenorrhea Procedures US Pelvis Non OB Complete w Transvaginal Marbella Meredith CNM [address] [place] [address] Phone: tel: fax: [facility] Referral ID Status Reason Start Date Expiration Date V isits Requested Visits Authorized [id number] Pending Review 12/21/2024 12/21/2025 1 1 Encounter Details Date Type Department Care Team (Latest Contact Info) Description 12/25/2024 5:22 PM EST - 12/25/2024 11:59 PM EST Hospital Encounter Radiology Department - [address] [phone] Dysmenorrhea Discharge Disposition: Home or Self Care [...] your loved ones. For example, child care director or elderly care for an older adult? [...] Obstetrics and Gynecology - [address] [place] [address] Bailee Albarran DO [address] [place] [address] 01/31/2025 3:30 PM EDT Consult Gastroenterology - [address] [facility] [address] [place] [phone] Radha Sanon, PERRI [address] [facility] [address] [address] documented as of this encounter Procedures Procedure [...] EST No uterine or ovarian abnormality. POS [id number] -------- FINAL REPORT -------- Dictated By: Krystle Granger Dictated Date: 12/26/2024 08:08 ET Assigned Physician: Krystle Granger Reviewed and Electronically Signed By: Krystle Granger Signed Date: 12/26/2024 08:11 ET Workstation ID: [id number] Transcribed By: Self Edit Transcribed Date: 12/26/2024 [...] IMPRESSION: No uterine or ovarian abnormality. POS [id number] -------- FINAL REPORT -------- Dictated By: Krystle Granger Dictated Date: 12/26/2024 08:08 ET Assigned Physician: Krystle Granger Reviewed and Electronically Signed By: Krystle Granger Signed Date: 12/26/2024 08:11 ET Workstation ID: [id number] Transcribed By: Self Edit Transcribed Date: 12/26/2024 08:08 ET us Marbella Meredith CNM IMG US PROCEDURES Final Res ult documented in this encounter Visit Diagnoses Diagnosis Dysmenorrhea documented in this encounter Additional Health Concerns Assessment Noted Time PHQ-9 Depression Total Score: 0 11/18/19 25 5:50 PM EST documented as of this encounter Care Teams Mattress And Foundation Sewer Relationship Specialty Start Date End Date Nani Soler MD PCP - General 02/03/23 01/07/25 documented as of this encounter
--- OUTSIDE RECORDS SUMMARY | 2025-01-09 14:22 | XMS_ITS | Clinical Summary ---
Author Organization [facility] Address [address] [place] [address] Care Team Providers Care Grill Associate Name Role Phone Unknown Primary Care Provider [phone] Allergies No known active allergies Medications Medication [...] age to complete this topic Care Teams Grill Associate Relationship Specialty Start Date End Date Unknown Unknow Provider Address PCP - General 07/13/24
--- OUTSIDE RECORDS SUMMARY | 2025-01-09 14:22 | XMS_ITS | Encounter Summary ---
Author Organization [facility] Address [address] [place] [address] Care Team Providers Care Dipper And Drier Name Role Phone Nani Soler MD Primary Care Provider [phone] Reason for Visit * Reason Comments Abdominal [...] EST - 01/01/2025 11:58 PM EST Emergency [facility] Emergency [address] [place] [phone] Jose Armando Umana MD [address] [place] [address] PUD (peptic ulcer disease) (Primary Dx) Discharge [...] care for your loved ones. For example, children's author or elderly care for an older adult? [...] through Care Everywhere. * Peptic Ulcer Disease (Amharic) * Aspirin/Omeprazole Delayed Release Oral Tablet (ASPIRIN/OMEPRAZOLE - ORAL) (Amharic) documented in this encounter Medications at Time [...] Prem Gallardo ??? Other (Other: MGGM with VT age 35 and ) Mother's side ??? [...] ED Physician in the absence of a market relationship manager: yes Interpretation: Interpretation: normal Details: Normal sinus rhythm with a ventricular rate of 61 bpm. PACs occasionally seen. Normal AK, QRS, QTc, axis. No acute ischemic changes. CT Abdomen Pelvis w Contrast Final Result Unremarkable contrast enhanced abdomen and pelvis CT. Normal appendix. Report reviewed and signed by : Dr. Darrius Frausto on 01/01/2025 10:33 PM. Workstation Name - [id number] -------- FINAL REPORT -------- Dictated By: Darrius Frausto Dictated Date: 01/01/2025 23:31 ET Assigned Physician: Darrius Frausto Reviewed and Electronically Signed By: Darrius Frausto Signed Date: 01/01/2025 23:33 ET Workstation ID: [id number] Transcribed By: Self Edit Transcribed Date: 01/01/2025 23:31 ET Labs Reviewed URINALYSIS WITH REFLEX MICROSCOPIC AND CULTURE - Abnormal Result Value Color, Urine Yellow Clarity, Urine Slightly Cloudy (*) Specific Newcomb Urine >=1.030 pH, Urine 5.5 Leukocytes, Urine [...] EXPIRATION DATE POC 05/13/2026 LOT NUMBER POC [id number] CULTURE URINE URINALYSIS WITH REFLEX MICROSCOPIC AND CULTURE Narrative: The following orders were created for panel order Urinalysis with reflex microscopic and culture. Procedure Abnormality Status --------- ------ Urinalysis with reflex ...[[id number]] Abnormal Final result Please view results for these tests on the individual orders. CBC AND DIFFERENTIAL Narrative: The following orders were created for panel order CBC and differential. Procedure Abnormality Status --------- ------ CBC auto differential[[id number]] Abnormal Final result Please view results for [...] as of 01/02/25 0336 TueJan 01, 2025 3993 On repeat examination patient shiva otherwise stable [...] and/or test interpretation with external health health careers instructor [] Admission/Observation - Patient's presentation, diagnostics, and/or [...] clarification. Jose Armando Umana MD 01/01/252132 Jose Amrando Umana MD 01/01/252146 Jose Armando Umana MD 01/02/25 0337 documented in this encounter Plan of Treatment Upcoming Encounters Date Type Department Care Team (Late st Contact Info) Description 01/14/2025 2:00 PM EDT Office Visit Obstetrics and Gynecology - [address] [place] [address] Bailee Albarran DO [address] [place] [address] 01/31/2025 3:30 PM EDT Consult Gastroenterology - [address] [place] [phone] Radha Sanon, PERRI [address] [place] [address] Pending Results Name Type Priority Associated Diagnoses [...] on 01/01/2025 10:33 PM. Workstation Name - [id number] -------- FINAL REPORT -------- Dictated By: Darrius Frausto Dictated Date: 01/01/2025 23:31 ET Assigned Physician: Darrius Frausto Reviewed and Electronically Signed By: Darrius Frausto Signed Date: 01/01/2025 23:33 ET Workstation ID: [id number] Transcribed By: Self Edit Transcribed Date: 01/01/2025 [...] Frausto on 01/01/2025 10:33 PM.Workstation Name - [id number] -------- FINAL REPORT -------- Dictated By: Darrius Frausto Dictated Date: 01/01/2025 23:31 ET Assigned Physician: Darrius Frausto Reviewed and Electronically Signed By: Darrius Frausto Signed Date: 01/01/2025 23:33 ET Workstation ID: [id number] Transcribed By: Self Edit Transcribed Date: 01/01/2025 [...] ED Physician in the absence of a market relationship manager: yes ?? Interpretation: ??Interpretation: normal ?Details: ??Normal sinus rhythm with a ventricular rate of 61 bpm. ??PACs occasionally seen. ??Normal AK, QRS, QTc, axis. ??No acute ischemic changes. us Jose Armando Umana MD ECG ORDERABLES Final Result * ECG 12 lead (01/01/2025 9:37 PM EST) Ventricular Rate ECG 61 BPM GEMUSE Atrial Rate 61 BPM GEMUSE P-R Interval 140 ms GEMUSE QRS Duration 86 ms GEMUSE Q-T Interval 412 ms GEMUSE QTc 414 ms GEMUSE P Wave [place]oths[place] 35 degrees GEMUSE R [place] 39 degrees GEMUSE T [place] 28 degrees GEMUSE ECG Interpretation Sinus rhythm with premature atrial complexes Otherwise normal ECG No previous ECGs available Confirmed by Nikko Newsome ([id number]) on 01/02/2025 2:12:49 PM GEMUSE 01/01/2025 9:37 PM EST 01/02/2025 2:12 PM EST us Jose Armando Umana MD ECG ORDERABLES Final Result GEMUSE * (ABNORMAL) CBC auto differential (01/01/2025 9:21 PM EST) WBC 7.4 4.0 - 10.5 K/mcL LAB HEMETOLOGY METHOD 01/01/2025 9:35 PM [facility] RBC 4.46 4.20 - 5.40 M/mcL LAB HEMETOLOGY METHOD 01/01/2025 9:35 PM [facility] Hemoglobin 13.3 12.5 - 16.0 g/dL LAB HEMETOLOGY METHOD 01/01/2025 9:35 PM [facility] Hematocrit 39.2 37.0 - 47.0 % LAB HEMETOLOGY METHOD 01/01/2025 9:35 PM [facility] MCV 87.9 78.0 - 100.0 FL LAB HEMETOLOGY METHOD 01/01/2025 9:35 PM [facility] MCH 29.8 25.0 - 33.0 pcg LAB HEMETOLOGY METHOD 01/01/2025 9:35 PM [facility] MCHC 33.9 32.0 - 36.0 g/dL LAB HEMETOLOGY METHOD 01/01/2025 9:35 PM [facility] RDW 11.4(L) 12.1 - 16.2 % LAB HEMETOLOGY METHOD 01/01/2025 9:35 PM [facility] Platelets 271 150 - 450 K/mcL LAB HEMETOLOGY METHOD 01/01/2025 9:35 PM [facility] MPV 9.1 7.4 - 11.4 FL LAB HEMETOLOGY METHOD 01/01/2025 9:35 PM [facility] Neutrophils Relative 40.4(L) 44.0 - 74.0 % LAB HEMETOLOGY METHOD 01/01/2025 9:35 PM [facility] Lymphocytes Relative 50.0(H) 20.0 - 48.0 % LAB HEMETOLOGY METHOD 01/01/2025 9:35 PM [facility] Monocytes Relative 7.4 2.0 - 12.0 % LAB HEMETOLOGY METHOD 01/01/2025 9:35 PM [facility] Eosinophils Relative 1.4 0.0 - 6.0 % LAB HEMETOLOGY METHOD 01/01/2025 9:35 PM [facility] Basophils Relative 0.7 0.0 - 2.0 % LAB HEMETOLOGY METHOD 01/01/2025 9:35 PM [facility] Neutrophils Absolute 2.99 1.80 - 7.80 K/mcL LAB HEMETOLOGY METHOD 01/01/2025 9:35 PM [facility] Lymphocytes Absolute 3.70(H) 1.00 - 3.20 K/mcL LAB HEMETOLOGY METHOD 01/01/2025 9:35 PM [facility] Monocytes Absolute 0.55 0.00 - 0.80 K/mcL LAB HEMETOLOGY METHOD 01/01/2025 9:35 PM [facility] Eosinophils Absolute 0.10 0.00 - 0.50 K/mcL LAB HEMETOLOGY METHOD 01/01/2025 9:35 PM [facility] Basophils Absolute 0.05 0.00 - 0.20 K/mcL LAB HEMETOLOGY METHOD 01/01/2025 9:35 PM EST [facility] Blood Venous blood specimen / Unknown Venipuncture / Unknown 01/01/2025 9:21 PM EST 01/01/2025 9:33 PM EST us Jose Armando Umana MD LAB BLOOD ORDERABLES Final Res ult [facility] [address] [place] [address], [place] [phone] * Hepatic function panel (01/01/2025 9:21 PM EST) Total Protein 7.1 6.4 - 8.5 g/dL LAB CHEMISTRY METHOD 01/01/2025 9:57 PM [facility] Albumin 4.3 3.5 - 5.0 g/dL LAB CHEMISTRY METHOD 01/01/2025 9:57 PM [facility] Total Bilirubin 0.4 0.3 - 1.0 mg/dL LAB CHEMISTRY METHOD 01/01/2025 9:57 PM [facility] Bilirubin, Direct 0.1 0.0 - 0.2 mg/dL LAB CHEMISTRY METHOD 01/01/2025 9:57 PM [facility] Bilirubin, Indirect 0.3 mg/dL LAB CHEMISTRY METHOD 01/01/2025 9:57 PM [facility] ALT (SGPT) 12 7 - 52 unit/L LAB CHEMISTRY METHOD 01/01/2025 9:57 PM [facility] AST (SGOT) 17 5 - 40 unit/L LAB CHEMISTRY METHOD 01/01/2025 9:57 PM [facility] Alkaline Phosphatase 39 34 - 104 unit/L LAB CHEMISTRY METHOD 01/01/2025 9:57 PM [facility] Blood Venous blood specimen / Unknown Venipuncture / Unknown 01/01/2025 9:21 PM EST 01/01/2025 9:33 PM EST Jose Armando Umana MD LAB BLOOD ORDERABLES Final Res ult Performing Organization Address City/[facility]/ZIP Co de Phone Number [facility] [address] [place] [address], [place] [phone] * Lipase (01/01/2025 9:21 PM EST) Lipase 19 11 - 82 unit/L LAB CHEMISTRY METHOD 01/01/2025 9:57 PM EST [facility] Blood Venous blood specimen / Unknown Venipuncture / Unknown 01/01/2025 9:21 PM EST 01/01/2025 9:33 PM EST Jose Armando Umana MD LAB BLOOD ORDERABLES Final Res ult Performing Organization Address City/[facility]/ZIP Co de Phone Number [facility] [address] [place] [address], [place] [phone] * Basic metabolic panel (01/01/2025 9:21 PM EST) Pathologist [facility] Sodium 136 135 - 145 mmol/L LAB CHEMISTRY METHOD 01/01/2025 9:57 PM EST [facility] Potassium 3.8 3.5 - 5.1 mmol/L LAB CHEMISTRY METHOD 01/01/2025 9:57 PM [facility] Chloride 103 98 - 107 mmol/L LAB CHEMISTRY METHOD 01/01/2025 9:57 PM EST [facility] CO2 27 24 - 32 mmol/L LAB CHEMISTRY METHOD 01/01/2025 9:57 PM EST [facility] Anion Gap 6 5 - 14 LAB CHEMISTRY METHOD 01/01/2025 9:57 PM EST [facility] Glucose 91 70 - 199 mg/dL LAB CHEMISTRY METHOD 01/01/2025 9:57 PM EST [facility] BUN 17 7 - 17 mg/dL LAB CHEMISTRY METHOD 01/01/2025 9:57 PM [facility] Creatinine 0.96 0.50 - 1.00 mg/dL LAB CHEMISTRY METHOD 01/01/2025 9:57 PM EST [facility] eGFR 85 >=60 mL/min/1. 73m2 LAB CHEMISTRY METHOD 01/01/2025 9:57 PM EST [facility] Comment:Calculation based on the??Chronic Kidney Disease Epidemiology Collaboration (CKD-EPI) equation refit??without adjustment for race. BUN/Creatinine Ratio 17.7 12.0 - 20.0 LAB CHEMISTRY METHOD 01/01/2025 9:57 PM EST [facility] Calcium 9.2 8.4 - 10.2 mg/dL LAB CHEMISTRY METHOD 01/01/2025 9:57 PM EST [facility] Blood Venous blood specimen / Unknown Venipuncture / Unknown 01/01/2025 9:21 PM EST 01/01/2025 9:33 PM EST us Jose Armando Umana MD LAB BLOOD ORDERABLES Final Res ult [facility] [address] [place] [address], [place] [phone] * Culture urine (01/01/2025 9:18 PM EST) Culture, Urine Mixed urogenital otto, no uropathogens present. Suggest repeat specimen, if clinically indicated. 01/03/2025 8:32 AM [facility] Urine Urine specimen obtained by clean catch procedure / Unknown Non-blood Collection / Unknown 01/01/2025 9:18 PM EST 01/01/2025 9:40 PM EST us Jose Armando Umana MD LAB MICROBIOLOGY - GENERAL ORD ERABLES Final Result [facility] [address] [place] [address], [place] [phone] * (ABNORMAL) Urinalysis microscopic reflex urine culture (01/01/2025 9:18 PM EST) RBC, Urine 4(H) 0 - 3 /HPF 01/01/2025 9:40 PM EST [facility] WBC, Urine 4 0 - 5 /HPF 01/01/2025 9:40 PM EST [facility] Bacteria, Urine 1+(A) None /HPF 9:40 PM EST [facility] Squamous Epithelial, Urine 6(H) 0 - 5 /HPF 01/01/2025 9:40 PM EST [facility] Mucus, UA 1+ None /LPF 01/01/2025 9:40 PM EST [facility] Urine Urine specimen obtained by clean catch procedure / Unknown Non-blood Collection / Unknown 01/01/2025 9:18 PM EST 01/01/2025 9:33 PM EST us Jose Armando Umana MD LAB URINE ORDERABLES Final Res ult [facility] [address] [place] [address], [place] [phone] * (ABNORMAL) Urinalysis with reflex microscopic and culture (01/01/2025 9:18 PM EST) Color, Urine Yellow Colorless, Yellow LAB URINALYSIS - AUTOMATED METHOD 01/01/2025 9:36 PM EST [facility] Clarity, Urine Slightly Cloudy(A) Clear LAB URINALYSIS - AUTOMATED METHOD 01/01/2025 9:36 PM [facility] Specific Newcomb Urine >=1.030 1.005 - 1.030 LAB URINALYSIS - AUTOMATED METHOD 01/01/2025 9:36 PM [facility] pH, Urine 5.5 5.0 - 8.0 pH LAB URINALYSIS - AUTOMATED METHOD 01/01/2025 9:36 PM [facility] Leukocytes, Urine Negative Negative WBCs/mcL LAB URINALYSIS - AUTOMATED METHOD 01/01/2025 9:36 PM [facility] Nitrite, Urine Negative Negative LAB URINALYSIS - AUTOMATED METHOD 01/01/2025 9:36 PM [facility] Protein, Urine 30(A) Negative mg/dL LAB URINALYSIS - AUTOMATED METHOD 01/01/2025 9:36 PM [facility] Glucose, Urine Negative Negative mg/dL LAB URINALYSIS - AUTOMATED METHOD 01/01/2025 9:36 PM [facility] Ketones, Urine Negative Negative mg/dL LAB URINALYSIS - AUTOMATED METHOD 01/01/2025 9:36 PM [facility] Blood, Urine Trace(A) Negative mg/dL LAB URINALYSIS - AUTOMATED METHOD 01/01/2025 9:36 PM [facility] Urine Urine specimen obtained by clean catch procedure / Unknown Non-blood Collection / Unknown 01/01/2025 9:18 PM EST 01/01/2025 9:33 PM EST us Jose Armando Umana MD LAB URINE ORDERABLES Final Res ult [facility] [address] [place] [address], [place] [phone] documented in this encounter Visit Diagnoses Diagnosis [...] documented as of this encounter Care Teams Dipper And Drier Relationship Specialty Start Date End Date Nani Soler MD PCP - General 02/03/23 01/07/25 documented as of this encounter
--- OUTSIDE RECORDS SUMMARY | 2025-01-09 14:22 | XMS_ITS | Encounter Summary ---
Author Organization [facility] Address [address] [place] [address] Care Team Providers Care Echo Technician Name Role Phone Unknown Primary Care Provider [phone] Encounter Details Date Type Department Care Team (Late st Contact Info) Description 07/13/2024 Scanned Document [address] [place] [phone] Provider, Generic Social History Tobacco Use [...] on filedocumented in this encounter Care Teams Echo Technician Relationship Specialty Start Date End Date Unknown Unknow Provider Address PCP - General 07/13/24 documented as of this encounter
--- OUTSIDE RECORDS SUMMARY | 2025-01-09 14:22 | XMS_ITS | Encounter Summary ---
Author Organization [facility] Address [address] [place] [address] Care Team Providers Care Financial Health Counselor Name Role Phone Unknown Primary Care Provider [phone] Encounter Details Date Type Department Care Team (Late st Contact Info) Description 07/13/2024 Scanned Document [address] [place] [phone] Provider, Generic Social History Tobacco Use [...] on filedocumented in this encounter Care Teams Financial Health Counselor Relationship Specialty Start Date End Date Unknown Unknow Provider Address PCP - General 07/13/24 documented as of this encounter
--- OUTSIDE RECORDS SUMMARY | 2025-01-09 14:22 | XMS_ITS | Encounter Summary ---
Author Organization [facility] Address [address] [place] [address] Care Team Providers Care Supplier Engineer Name Role Phone Nani Soler MD Primary Care Provider [phone] Reason for Visit * Reason Onset Date Comments Med Refill 01/02/2025 Encounter Details Date Type Department Care Team (Late st Contact Info) Description 01/02/2025 Telephone Obstetrics and Gynecology [facility] [address] [place] [phone] Marbella Meredith, [address] [id number] Med Refill Social History Tobacco Use Types [...] your loved ones. For example, child welfare specialist or elderly care for an older adult? [...] fax to [facility] [address] [facility] [place] documented in this encounter Plan of Treatment Upcoming Encounters Date Type Department Care Team (Late st Contact Info) Description 01/14/2025 2:00 PM EDT Office Visit Obstetrics and Gynecology - [address] [place] [address] Bailee Albarran DO [address] [place] [address] 01/31/2025 3:30 PM EDT Consult Gastroenterology - [address] [facility] [address] [place] [phone] Radha Sanon, EARTH BORING MACHINE OPERATOR [address] [address] documented as of this encounter Visit Diagnoses [...] as of this encounter Care Teams Supplier Engineer Relationship Specialty Start Date End Date Nani Soler MD PCP - General 02/03/23 01/07/25 documented as of this encounter
--- OUTSIDE RECORDS SUMMARY | 2025-01-09 14:22 | XMS_ITS | Encounter Summary ---
Author Organization [facility] Address [address] [place] [address] Care Team Providers Care Food Service Lead Name Role Phone Nani Soler MD Primary Care Provider [phone] Encounter Details Date Type Department Care Team (Late st Contact Info) Description 12/10/2024 Telephone Obstetrics and Gynecology [facility] [address] [place] [address] Marbella Meredith, [address] [address] Social History Tobacco Use Types Packs/Day Years [...] your loved ones. For example, child welfare manager or elderly care for an older adult? [...] especially with periods. Was seen by her process helper- who checked her blood work, which is [...] cramping and pelvic discomfort - sent a [employer] chart message a few days ago is askng for a call back regarding this -please call to advise documented in this encounter Plan of Treatment Upcoming Encounters Date Type Department Care Team (Late st Contact Info) Description 01/14/2025 2:00 PM EDT Office Visit Obstetrics and Gynecology - [address] [place] [address] Bailee Albarran DO [address] [place] [address] 01/31/2025 3:30 PM EDT Consult Gastroenterology - [address] [place] [phone] Radha Sanon, PERRI [address] [place] [address] documented as of this encounter Visit Diagnoses Not on filedocumented in this encounter Additional Health Concerns Assessment Noted Time PHQ-9 Depression Total Score: 0 11/18/19 25 5:50 PM EST documented as of this encounter Care Teams Food Service Lead Relationship Specialty Start Date End Date Nani Soler MD PCP - General 02/03/23 01/07/25 documented as of this encounter
[2025-01-10 16:09] LABS: Transglutaminase IgA <1.0 U/mL
[2025-01-13 17:38] LABS: Vitamin D 25-OH, D2 <4 ng/mL; Vitamin D 25-OH, D3 19 ng/mL; Vitamin D 25-OH, Total 19 ng/mL (30-100)
== END 2025-01-09 11:13 | disposition home or self-care (01) ==
LOC: HO.LAB 11:12
PROVIDERS: PCP Nurse Practitioner Adult Health; Visit Provider Nurse Practitioner Family
DX: R10.9 Unspecified abdominal pain (principal); R19.7 Diarrhea, unspecified; E55.9 Vitamin D deficiency, unspecified; K58.9 Irritable bowel syndrome, unspecified
CPT/HCPCS: 36415; 82306; 82607; 82746; 86140; 86364

== ENCOUNTER 2025-01-09 11:12 | Outpatient (AMB) | payer BC, SELFPAY ==
--- NOTE | 2025-01-09 11:26 | MHC.OFFVIS ---
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 Notes from PCP requested. Received as of 01/08 Prior hx of colo/egd? N Chief Complaint; C/O N+V persistence over the last few weeks. Pt also reports epigastric pain upon palpation as well as LLQ pain consistently. Diarrhea also reported w/o signs of hemo. Lack of appetite, slightly improved since initial eval. CT and US negative via [place] [facility]. 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 Patient was sent to us by her PCP after patient seen in a ED for epigastric pain. CT scan was done that showed no acute processes. Patient had ultrasound done by OBGYN back in December that was also normal. No leukocytosis, normal liver profile in normal lipase. Urinalysis performed and patient had hazy urine with protein and blood, however patient is had her menses. Patient was unable to eat or drink for quite some time. Patient reports that it all started when she thought she had menstrual cramping and was taking large amount of ibuprofen that was prescribed to her by her OBGYN. Patient reports epigastric pain no matter what she ate or drank. Inability to eat due to severe nausea and stomach pain. Patient reports that the pain was sharp and located in the upper abdomen. Patient also reports left lower quadrant pain. Moving her bowels daily, however in the past few days patient has been having loose stools. Patient reports lose stool about once a day. Patient reports that she is been taking Maalox before each meal. The patient reports that she is taking the highest dose which is 60 mL which is fairly high dose. (400 mg of magnesium hydroxide in 5 mL of Maalox). Patient denies melena, hematochezia, unintentional weight loss or ribbon like stools. Currently she is taking omeprazole and feels like it is helping some, however still has occasional epigastric pain. No family history of celiac disease or IBD. [facility] Medical History Routine medical exam Family History Maternal Grandfather Stomach cancer Social History Household Members: Family Household Members Other:: lives with mother Housing: House Do you presently have visiting nurse or other home services: No Alcohol intake: never Patient Tobacco Use Status: Never used Tobacco e-Cigarette/Vaping Use: Never Used Second Hand Smoke Exposure: No service: No Sexual orientation: Don't Know Review of Systems Const Denies weight gain and Denies weight loss ENT Reports no additional complaints, Denies dysphagia and Denies odynophagia Card Reports no additional complaints Resp Reports no additional complaints GI Reports abdominal pain (Epigastric postprandially, LLQ occasionally), Denies belching, Denies melena, Denies bloating, Denies change in bowel habits, Denies dysphagia, Denies excessive flatus, Denies dyspepsia, Denies heartburn, Denies diarrhea, Reports loose stools (Daily in the last few days), Reports nausea, Denies odynophagia and Denies vomiting Reports no additional complaints Musc Reports no additional complaints Neuro Reports no additional complaints Psych Reports no additional complaints Endo Reports no additional complaints Physical Exam Vital Signs: Last Vital Signs Pulse 80 01/09/25 11:38 BP 108/58 L 01/09/25 11:38 Pulse Ox 100 01/09/25 11:38 Oxygen Delivery Method Room Air 01/09/25 11:38 BMI result Body Mass Index 24.8 Const General: healthy appearing, no acute distress and well developed Nutritional Appearance: well nourished Orientation/consciousness: patient oriented x3 Resp Effort & Inspection: normal respiratory effort, able to speak in complete sentences, no tracheal deviation and symmetric chest movement Auscultation: clear to auscultation bilaterally Cardio Rate: regular rate GI Inspection: Yes normal to inspection and No distended Palpation (GI): Soft to palpation, not firm, nontender and No hepatosplenomegaly present Auscultation: normal bowel sounds General: Yes no CVA tenderness Back/Spine/Pelvis Back: no CVA tenderness Skin General skin exam: elasticity normal, turgor normal and dry skin Neuro General: patient oriented x3 Psych Appearance: grossly normal Mental Status: mental status grossly normal Affect: Anxious affect present (Mild) Assessment & Plan Assessment & Plan (1) Postprandial epigastric pain: Code(s): R10.13 - Epigastric pain (2) GERD (gastroesophageal reflux disease): Code(s): K21.9 - Gastro-esophageal reflux disease without esophagitis Qualifiers: Esophagitis presence: esophagitis presence not specified Qualified Code(s): K21.9 - Gastro-esophageal reflux disease without esophagitis (3) Nausea: Code(s): R11.0 - Nausea (4) LLQ abdominal pain: Code(s): R10.32 - Left lower quadrant pain (5) Diarrhea: Code(s): R19.7 - Diarrhea, unspecified Qualifiers: Diarrhea type: functional diarrhea Qualified Code(s): K59.1 - Functional diarrhea Plan Patient will continue taking omeprazole, however if she continues to have pain and nausea when eating we can switch to something like Nexium. I will have patient stop taking Maalox as large amount of Maalox most likely is causing her to have diarrhea due to magnesium hydroxide. We will have her take famotidine instead and she can take that at bedtime. Will rule out celiac, inflammatory processes, malabsorption. Patient will be sent for upper GI with barium swallow to check for reflux. Patient will be sent for upper endoscopy. Spoke to surgical schedulers and there is a opening next week on Tuesday and patient will be scheduled then. Patient has significant anxiety, I do recommend taking her BuSpar the day of procedure, however please verify with anesthesia and let patient know. Patient reports that she never had been put under anesthesia before. Patient was recommended to start taking Benefiber dual action biotic with pre and probiotics to help her bulk her stools better. We will hold off on getting her colonoscopy at this time. Patient has no melena, no family history of CRC. I will see patient after the procedure. Patient is agreeable to current plan of care and verbalizes understanding of instructions. She was given the opportunity to ask questions and all questions answered. Thank you for allowing me to participate in her care Orders: Orders Transglutaminase IgA Today R10.9 - Unspecified abdominal pain Vitamin B12 and Folate Today R19.7 - Diarrhea, unspecified C Reactive Protein Today K58.9 - Irritable bowel syndrome, unspecified Vitamin D 25-OH (D2 and D3) Today E55.9 - Vitamin D deficiency, unspecified [place] upper GI w Ba Swallow Today K21.9 - Gastro-esophageal reflux disease without esophagitis Medications: New famotidine (Pepcid) 20 mg PO BEDTIME 30 tabs 3RF K21.9 - Gastro-esophageal reflux disease without esophagitis Coding Level of Care Code New Pt Level 4 (62380) Diagnoses Postprandial epigastric pain R10.13 Gastroesophageal reflux disease, unspecified whether esophagitis present K21.9 Esophagitis presence: esophagitis presence not specified Nausea R11.0 LLQ abdominal pain R10.32 Functional diarrhea K59.1 Diarrhea type: functional diarrhea Time Spent (min) 45 Comment 30 minutes spent with patient and additional 15 minutes spent reviewing her records
[2025-01-09 11:38] VITALS: BP 108/58; PULSE 80; O2SAT 100; BMI 24.8
--- OUTSIDE RECORDS SUMMARY | 2025-01-09 13:12 | XMS_ITS | Encounter Summary ---
[facility] Organization [facility] Address [address] [place] [address] Care Team Providers Care Addressing Machine Operator Name Role Phone Nani Soler MD Primary Care Provider [phone] Reason for Visit * Reason Comments Abdominal Pain Pt sent from , pt unable to eat or drink water for 2 wks d/t nausea and pain. Pt reports pain to upper mid abd along with LLQ abd. Pt had an outpatient U/S and HCG done 1 wk ago that was negative. Encounter Details Date Type Department Care Team (Late st Contact Info) Description 01/01/2025 9:08 PM EST - 01/01/2025 11:58 PM EST Emergency [facility] Emergency [address] [place] [phone] Jose Armando Umana MD [address] [place] [address] PUD (peptic ulcer disease) (Primary Dx) Discharge Disposition: Home or Self Care Social History Tobacco Use Types Packs/Day Years Used Date Smoking Tobacco: Never Smokeless Tobacco: Never Alcohol Use Standard Drinks/Week Comments Not Currently 0 (1 standard drink = 0.6 oz pur e alcohol) Housing Instability Answer Date Recorde d Are you worried that in the next 2 months you may not have stable housing? Patient declined 11/18/2024 Food Access & Nutrition Answer Date Rec orded Do you have access to a vari ety of food including fruits and vegetables? Yes 11/18/2024 Health Literacy Answer Date Recorded How often do you need to hav e someone help you when you read instructions, pamphlets, or other written material from your doctor or pharmacy? Never 11/18/2024 Caregiver: How often do you need to have someone help you when you read instructions, pamphlets, or other written material from your doctor or pharmacy? Not on file 11/18/2024 Financial Risk Answer Date Recorded How hard is it for you to pa y for the very basics like food, housing, medical care, and air conditioning / heating? Patient declined 11/18/2024 Transportation Answer Date Recorded Has the lack of transportati on kept you from meetings, work, or from getting things needed for daily living? Patient declined 11/18/2024 Has the lack of transportati on kept you from medical appointments or from getting medications? Patient declined 11/18/2024 Social Isolation Answer Date Recorded How often do you feel lonely or isolated from those around you? Sometimes 11/18/2024 Food Risk Answer Date Recorded Within the past 12 months we worried whether our food would run out before we got money to buy more. Never true 11/18/2024 Within the past 12 months th e food we bought just didn't last and we didn't have money to get more. Never true 11/18/2024 Dependent Care Answer Date Recorded Do you need help finding or paying for care for your loved ones. For example, director child development center or elderly care for an older adult? No 11/18/2024 Education Answer Date Recorded Do you think completing more education or training, like finishing a GED, going to college, or learning a trade, would be helpful for you? Yes 11/18/2024 Employment and Income Answer Date Recor ded During the last four weeks, have you been actively looking for work? No 11/18/2024 Living Situation Answer Date Recorded What is your living situation? 0 11/18/2024 Comments No Sex and Gender Information Value Date Recorded Sex Assigned at Female 01/01/2025 9:54 PM EST Legal Sex Female 7:15 AM EST Gender Identity Female 01/01/2025 9:54 PM EST Sexual Orientation Straight 01/01/2025 9: 54 PM EST documented as of this encounter Last Filed Vital Signs Vital Sign Reading Time Taken Comments Blood Pressure 127/62 01/01/2025 9:07 PM EST Pulse 65 01/01/2025 9:07 PM EST Temperature 36.3 ??C (97.4 ??F) 01/01/2025 9:07 PM ES T Respiratory Rate 18 01/01/2025 9:07 PM EST Oxygen Saturation 100% 01/01/2025 9:07 PM EST Inhaled Oxygen Concentration - - Weight 63.5 kg (140 lb) 01/01/2025 9:07 PM EST Height 162.6 cm (5' 4 ) 01/01/2025 9:07 PM EST Body Mass Index 24.03 01/01/2025 9:07 PM EST documented in this encounter Discharge Instructions * Discharge Instructions* Jose Armando Umana MD - 01/01/2025 11:45 PM EST Please return to the emergency department if you have worsening or continued abdominal pain, uncontrollable nausea/vomiting, unable to tolerate food/liquids, uncontrollable diarrhea, vomiting blood, bloody (black or red) stools, fevers, or if you have a change in the symptoms you are currently having. * Attachments The following attachments cannot be sent through Care Everywhere. * Peptic Ulcer Disease (Nepali) * Aspirin/Omeprazole Delayed Release Oral Tablet (ASPIRIN/OMEPRAZOLE - ORAL) (Nepali) documented in this encounter Medications at Time of Discharge levothyroxine (LevoxyL) 150 mcg tablet TAKE 1 TABLET BY MOUTH EVERY DAY norethindrone-ethiny l estradiol (Junel ,) 1-20 mg-mcg per tablet Take 1 tablet by mouth 1 (one) time each day. 63 tablet 1 12/21/2024 5 omeprazole (PriLOSEC) [address] capsule Take 1 capsule (20 mg total) by mouth 1 (one) time each day. Do not crush or chew. 30 each 01/01/2025 5 ondansetron ODT (ZOFRAN-ODT) 4 mg disintegrating tablet Dissolve 1 tablet (4 mg total) on top of the tongue every 8 (eight) hours if needed for nausea or vomiting. 30 tablet 12/31/2024 5 documented as of this encounter Ordered Prescriptions Prescription Sig Dispense Quantity Refills Last Filled Start Date End Date omeprazole (PriLOSEC) [address] capsule Take 1 capsule (20 mg total) by mouth 1 (one) time each day. Do not crush or chew. 30 each 01/01/2025 5 documented in this encounter Discharge Disposition Disposition Code Departure Means Destination Comment s Home or Self Care documented in this encounter Progress Notes * Jose Armando Umana MD - 01/01/2025 9:01 PM ESTAssociated Order(s): ECG Rhythm Interpretation and Report Chief Complaint: Chief Complaint Patient presents with ??? Abdominal Pain Pt sent from , pt unable to eat or drink water for 2 wks d/t nausea and pain. Pt reports pain to upper mid abd along with LLQ abd. Pt had an outpatient U/S and HCG done 1 wk ago that was negative. History of Present Illness: 24-year-old female with a past medical history significant for hypothyroidism presents with upper abdominal pain. For the past 2 weeks patient has been having decreased oral intake and epigastric pain. Seems to be worse immediately after eating. Pain moves into the left flank when she eats. Denies any associated pain or burning with urination. Nausea without vomiting present. No blood in the stool. Went to urgent care earlier in the day and was sent here for further evaluation as she is not feeling better. Of note patient has been undergoing evaluation for dysmenorrhea. Patient since she started having periods has always had painful periods, however over the past few months that has been worse. Did just recently have a pelvic ultrasound and a negative hCG about a week ago. Is pending further outpatient workup for this. Past Medical History: Diagnosis Date ??? Other and unspecified noninfectious gastroenteritis and colitis(558.9) DX:Other and unspecified noninfectious gastroenteritis and colitis(558.9) ??? Pneumonia, organism unspecified(486) DX:Pneumonia, organism unspecified(486) ??? Unspecified asthma(493.90) DX:Unspecified asthma(493.90); COMMENT: when had pneumonia when young ??? Unspecified hypothyroidism DX:Unspecified hypothyroidism History reviewed. No pertinent surgical history. Family History Problem Relation Name Age of Onset ??? Allergies Father tylenol with codeine ??? Alcohol abuse Mother's Sister Mercedez Gallardo ??? Alcohol abuse Mother's Brother Gokul Gallardo ??? Alcohol abuse Mother's Brother Edi Gallardo ??? Other cancer Maternal Grandfather Prem Gallardo thinks stomach, rare cancer ??? Crohn's disease Maternal Grandfather Prem Gallardo ??? Cancer Maternal Grandfather Prem Gallardo ??? Other (Other: MGGM with GA age 35 and ) Mother's side ??? Breast cancer Neg Hx ??? Ovarian cancer Neg Hx ??? Prostate cancer Neg Hx ??? Colon cancer Neg Hx ??? Kidney cancer Neg Hx ??? Pancreatic cancer Neg Hx ??? Uterine cancer Neg Hx Social History Tobacco Use ??? Smoking status: Never ??? Smokeless tobacco: Never Substance Use Topics ??? Alcohol use: Not Currently ??? Drug use: Not Currently Types: Marijuana/Cannabis Review of Systems: Pertinent positive and negatives as documented in the HPI. Physical Exam: Vitals: 01/01/25 2107 BP: 127/62 Pulse: 65 Resp: 18 Temp: 36.3 ??C (97.4 ??F) SpO2: 100% Physical Exam Vitals and nursing note reviewed. Constitutional: General: She is not in acute distress. HENT: Head: Normocephalic and atraumatic. Cardiovascular: Rate and Rhythm: Normal rate and regular rhythm. Pulses: Normal pulses. Pulmonary: Effort: Pulmonary effort is normal. Breath sounds: Normal breath sounds. Abdominal: General: Abdomen is flat. There is no distension. Palpations: Abdomen is soft. Tenderness: There is abdominal tenderness in the epigastric area. There is guarding (Epigastrium). There is no rebound. Positive signs include Ferguson's sign (Minimally positive). Negative signs include McBurney's sign. Musculoskeletal: Cervical back: Neck supple. Skin: General: Skin is warm and dry. Neurological: General: No focal deficit present. Mental Status: She is alert and oriented to person, place, and time. ED Course: ECG Rhythm Interpretation and Report Date/Time: 01/01/2025 9:46 PM Performed by: Jose Armando Umana MD Authorized by: Jose Armando Umana MD ECG interpreted by ED Physician in the absence of a head up operator helper: yes Interpretation: Interpretation: normal Details: Normal sinus rhythm with a ventricular rate of 61 bpm. PACs occasionally seen. Normal KS, QRS, QTc, axis. No acute ischemic changes. CT Abdomen Pelvis w Contrast Final Result Unremarkable contrast enhanced abdomen and pelvis CT. Normal appendix. Report reviewed and signed by : Dr. Darrius Frausto on 01/01/2025 10:33 PM. Workstation Name - [id number] -------- FINAL REPORT -------- Dictated By: Darrius Frausto Dictated Date: 01/01/2025 23:31 ET Assigned Physician: Darrius Frausto Reviewed and Electronically Signed By: Darrius Frausto Signed Date: 01/01/2025 23:33 ET Workstation ID: [id number] Transcribed By: Self Edit Transcribed Date: 01/01/2025 23:31 ET Labs Reviewed URINALYSIS WITH REFLEX MICROSCOPIC AND CULTURE - Abnormal Result Value Color, Urine Yellow Clarity, Urine Slightly Cloudy (*) Specific [place] Urine >=1.030 pH, Urine 5.5 Leukocytes, Urine Negative Nitrite, Urine Negative Protein, Urine 30 (*) Glucose, Urine Negative Ketones, Urine Negative Blood, Urine Trace (*) CBC WITH AUTO DIFFERENTIAL - Abnormal WBC 7.4 RBC 4.46 Hemoglobin 13.3 Hematocrit 39.2 MCV 87.9 MCH 29.8 MCHC 33.9 RDW 11.4 (*) Platelets 271 MPV 9.1 Neutrophils Relative 40.4 (*) Lymphocytes Relative 50.0 (*) Monocytes Relative 7.4 Eosinophils Relative 1.4 Basophils Relative 0.7 Neutrophils Absolute 2.99 Lymphocytes Absolute 3.70 (*) Monocytes Absolute 0.55 Eosinophils Absolute 0.10 Basophils Absolute 0.05 ..URINALYSIS MICROSCOPIC REFLEX URINE CULTURE - Abnormal RBC, Urine 4 (*) WBC, Urine 4 Bacteria, Urine 1+ (*) Squamous Epithelial, Urine 6 (*) Mucus, UA 1+ BASIC METABOLIC PANEL - Normal Sodium 136 Potassium 3.8 Chloride 103 CO2 27 Anion Gap 6 Glucose 91 BUN 17 Creatinine 0.96 eGFR 85 BUN/Creatinine Ratio 17.7 Calcium 9.2 LIPASE - Normal Lipase 19 POC , URINE DIAGNOSTIC - Normal HCG, Ur POC Negative POC hCG Int QC Pass? Yes EXPIRATION DATE POC 05/13/2026 LOT NUMBER POC 386190 CULTURE URINE URINALYSIS WITH REFLEX MICROSCOPIC AND CULTURE Narrative: The following orders were created for panel order Urinalysis with reflex microscopic and culture. Procedure Abnormality Status --------- ------ Urinalysis with reflex ...[[id number]] Abnormal Final result Please view results for these tests on the individual orders. CBC AND DIFFERENTIAL Narrative: The following orders were created for panel order CBC and differential. Procedure Abnormality Status --------- ------ CBC auto differential[[id number]] Abnormal Final result Please view results for these tests on the individual orders. HEPATIC FUNCTION PANEL Total Protein 7.1 Albumin 4.3 Total Bilirubin 0.4 Bilirubin, Direct 0.1 Bilirubin, Indirect 0.3 ALT (SGPT) 12 AST (SGOT) 17 Alkaline Phosphatase 39 Medical Decision Making Upper Abdominal Pain Differential Diagnosis -IUP/ectopic -Biliary: Cholelithiasis, cholecystitis, ascending cholangitis -Colitis -PUD/GERD -Pancreatitis -Hepatitis -Pyelo -Renal stone -AAA -Splenic disease/infarction/aneurysm -Hepatomegaly -PNA -PE -Volvulus -Mesenteric ischemia 24-year-old female seen in initial evaluated in stable hemodynamic condition with the previous listed complaint. Initial evaluation as described. Administering Zofran, 1 L bolus IV normal saline, GI cocktail with viscous lidocaine. Amount and/or Complexity of Data Reviewed Independent Historian: spouse Labs: ordered. Decision-making details documented in ED Course. ECG/medicine tests: ordered and independent interpretation performed. Decision- making details documented in ED Course. ED Course as of 01/02/25 0336 TueJan 01, 2025 1517 On repeat examination patient shiva otherwise stable hemodynamic condition. She states she is feeling better, however repeated examination still with quite tender in the epigastrium and right upper quadrant. Has a slightly positive Ferguson sign. No tenderness in the lower abdomen. With some symptomatic improvement after GI cocktail, this could be secondary to peptic ulcer disease. She has no generalized peritoneal signs. However she is still quite tender in the epigastrium and right upper quadrant with a mildly positive Ferguson sign that continues. She is declining anything further for pain at this time. CBC and CMP are within normal limits. No evidence of infection or metabolic changes.No evidence of hepatorenal dysfunction. No pancreatitis. She is not . Urinalysis does show bacteria, however patient is asymptomatic. She is not , not necessary to treat. [JF] TueJan 02, 2025 0000 Remainder of evaluation is otherwise within normal limits not revealing any other significant or acute pathologies. Subsequent CT is negative for acute intra-abdominal pathology. She was feelingsignificantly better after administration of GI cocktail. Without other significant findings, likely peptic ulcer disease versus gastritis. Discussed dietary changes and starting PPI. Patient is amenable to this. I discussed with the patient and the spouse at the bedside the indications to return to the emergency department as well as appropriate outpatient follow-up. Expressed understanding the patient was subsequently discharged home in stable hemodynamic condition. [JF] ED Course User Index [JF] Jose Armando Umana MD Clinical Impressions as of 01/02/25 0336 PUD (peptic ulcer disease) Diagnoses: ICD-10-CM ICD-9-CM 1. PUD (peptic ulcer disease) K27.9 533.90 Discharge Medication List as of 01/01/2025 11:48 PM START taking these medications Details omeprazole (PriLOSEC) [address] capsule Take 1 capsule (20 mg total) by mouth 1 (one) time each day.Do not crush or chew., Starting Tue01/01/2025, Until Tue01/31/2025, Normal Complexity Summary Category 1 Components - Tests, documents, or independent historians: [] Reviewed prior external records from a unique source(s) as described in my note [x] Ordered unique test(s) [x] Reviewed unique test(s) [x] Discussed case with independent historian(s) as described in my note [x] Considered specific lab(s), imaging, and/or treatment(s) which not may not have been ultimatelypursued as described in my note Category 2 Components - Independent interpretation of tests: [] Independently interpreted outside testing/imaging ordered by another provider as described in mynote [x] Independently interpreted EKG(s) as included in my note [x] Independently interpreted lab(s) as included in my note [] Independently interpreted xray(s) as included in my note [x] Independently interpreted CT(s) as included in my note [] Independently interpreted ultrasound and/or POCUS as included in my note [] Independently interpreted rhythm strip(s) as included in my note Category 3 Components - Discussion of management and/or test results: [] Consultation - Discussed management and/or test interpretation with external health critical care specialist [] Admission/Observation - Patient's presentation, diagnostics, and/or treatment was discussed withthe admitting provider Risk Summary High: [x] Decisions made regarding hospitalization or escalation of care [x] CT scan with IV contrast performed [] Drug therapy requiring intensive monitoring for toxicity was utilized [] Parenteral controlled substances were administered [] Anticoagulation therapy administered [] High risk diagnostic/clinical decision support tool utilized [] Physical restraints utilized [] Decisions made regarding procedures performed that could classify as major surgery [] Decisions made regarding emergency major surgery [] Decisions made regarding elective major surgery with identified patient or procedure risk factors [] Decisions made to not resuscitate or to de-escalate care because of poor prognosis Moderate: [] Prescription drug management [x] Administration of IV fluids [] Radiation exposure from CT scan, or head/neck/torso x-rays [] Diagnosis or treatment significantly limited by social determinants of health as described in mynote [] Rigid musculoskeletal immobilization applied [] Decisions made regarding procedures performed that could classify as minor surgery [] Decisions made regarding minor surgery with identified patient or procedure risk factors [] /pediatric OTC meds administered (Tylenol < 24 mo, Ibuprofen < 6 mo, Benadryl < 6yrs) Low: [] Radiation exposure from extremity x-rays [] Ruddy wrap and/or superficial dressing applied [] Pediatric OTC meds administered (Tylenol > 24 mo, Ibuprofen > 6 mo, Benadryl > 6 yrs) 12-Lead EKG Interpretation [x] I independently interpreted the 12-lead EKG as documented in my note Rhythm Strip Interpretation [] I independently interpreted the rhythm strip as documented in my note Smoking Cessation Counseling [] I provided smoking cessation counseling as documented in my note ED Observation [] ED Observation services were provided as documented in my note Critical Care [] Critical care was provided as documented in my note Medication Assisted Treatment for Opioid Dependence [] I initiated Medication Assisted Treatment in the ED as documented in my note Please note that this chart has been created using speech recognition software and may contain errors related to that system, including errors in grammar, punctuation, and spelling. It may also include errors in words and phrases. If there are any questions or concerns, please feel free to contact me for clarification. Jose Armando Umana MD 01/01/252132 Jose Armando Umana MD 01/01/252146 Jose Armando Umana MD 01/02/25 0337 documented in this encounter Plan of Treatment Upcoming Encounters Date Type Department Care Team (Late st Contact Info) Description 01/14/2025 2:00 PM EDT Office Visit Obstetrics [facility]necology - [address] [place] [phone] Bailee Albarran DO [address] [place] [address] 01/31/2025 3:30 PM EDT Consult Gastroenterology - [address] [place] [phone] Radha Sanon, [place] [address] [place] [address] Pending Results Name Type Priority Associated Diagnoses Date /Time POC , urine manually resulted Point of Care Testing STAT 01/01/2025 9:34 PM EST Scheduled Orders Name Type Priority Associated Diagnoses Orde r Schedule POC , urine manually resulted Point of Care Testing STAT Once for 1 Occurrences starting 01/01/2025 until 01/01/2025 documented as of this encounter Procedures Procedure Name Priority Date/Time Associated Diagnosis Comments CT ABDOMEN PELVIS W CONTRAST STAT 01/01/2025 11:20 PM EST RHYTHM ECG, REPORT Routine 01/01/2025 9: 46 PM EST ECG 12-LEAD STAT 01/01/2025 9:37 PM EST CBC WITH AUTO DIFFERENTIAL STAT 01/01/2025 9:21 PM EST CBC AND DIFFERENTIAL STAT 01/01/2025 9:21 PM EST LIPASE STAT 01/01/2025 9:21 PM EST HEPATIC FUNCTION PANEL STAT 01/01/2025 9:21 PM EST BASIC METABOLIC PANEL STAT 01/01/2025 9:21 PM EST URINALYSIS WITH REFLEX MICROSCOPIC AND CULTURE STAT 01/01/2025 9:18 PM EST ..URINALYSIS MICROSCOPIC REFLEX URINE CULTURE STAT 01/01/2025 9:18 PM EST URINALYSIS WITH REFLEX MICROSCOPIC AND CULTURE STAT 01/01/2025 9:18 PM EST CULTURE URINE STAT 01/01/2025 9:18 PM EST documented in this encounter Results * CT Abdomen Pelvis w Contrast (01/01/2025 11:20 PM EST) Anatomical Region Laterality Modality Body Computed Tomogra phy 01/01/2025 11:3 1 PM EST Impressions 01/01/2025 11:33 PM EST Unremarkable contrast enhanced abdomen and pelvis CT. ??Normal appendix. Report reviewed and signed by : Dr. Darrius Frausto on 01/01/2025 10:33 PM. Workstation Name - [id number] -------- FINAL REPORT -------- Dictated By: Darrius Frausto Dictated Date: 01/01/2025 23:31 ET Assigned Physician: Darrius Frausto Reviewed and Electronically Signed By: Darrius Frausto Signed Date: 01/01/2025 23:33 ET Workstation ID: [id number] Transcribed By: Self Edit Transcribed Date: 01/01/2025 23:31 ET Narrative 01/01/2025 11:33 PM EST PROCEDURE: ??CT ABDOMEN PELVIS W CONTRAST PROCEDURE DATE: ??01/01/2025 10:10 PM INDICATION: 24 years Female RUQ/epigastric tenderness, positive Ferguson's, ultrasound unavailable TECHNIQUE: ??CT ABDOMEN PELVIS W CONTRAST COMPARISON: ??None. TECHNIQUE: Contrast-enhanced images of the abdomen and pelvis were obtained. Dose lowering techniques were utilized which include adjusting the mA and/or kV to protocol and/or patient size. FINDINGS: ABDOMEN AND PELVIS: LUNGS: ??Visualized lung parenchyma is clear without mass or infiltrate. LIVER: ??Normal with no focal lesions. ??No radiopaque calculi are seen in the gallbladder. ??No evidence of gallbladder inflammation by CT. SPLEEN: ??Normal. PANCREAS: ??Normal. ADRENAL GLANDS: ??Normal. KIDNEYS: ??Normal in size. ??No hydronephrosis, stone or solid mass lesion is seen. GI TRACT: ??Stomach, small bowel, appendix, colon and rectum appear unremarkable. There is no bowel wall pneumatosis, peritoneal free air, ascites or abscess. MESENTERIC VESSELS: Portal veins and mesenteric vessels are patent. AORTA / IVC: ??The aorta and IVC are normal in caliber. REPRODUCTIVE: ??As visible by CT, within normal limits. ??No pelvic free fluid. URINARY BLADDER: ??Normal. OTHER FINDINGS: ??None. LYMPH NODES: ??Normal. OSSEOUS STRUCTURES AND SOFT TISSUES: ??Normal. Procedure Note Darrius Frausto MD - 01/01/2025 PROCEDURE: CT ABDOMEN PELVIS W CONTRAST PROCEDURE DATE: 01/01/2025 10:10 PM INDICATION: 24 years Female RUQ/epigastric tenderness, positive Ferguson's,ultrasound unavailable TECHNIQUE: CT ABDOMEN PELVIS W CONTRAST COMPARISON: None. TECHNIQUE: Contrast-enhanced images of the abdomen and pelvis wereobtained. Dose lowering techniques were utilized which include adjustingthe mA and/or kV to protocol and/or patient size. FINDINGS: ABDOMEN AND PELVIS: LUNGS: Visualized lung parenchyma is clear without mass or infiltrate. LIVER: Normal with no focal lesions. No radiopaque calculi are seen inthe gallbladder. No evidence of gallbladder inflammation by CT. SPLEEN: Normal. PANCREAS: Normal. ADRENAL GLANDS: Normal. KIDNEYS: Normal in size. No hydronephrosis, stone or solid mass lesionis seen. GI TRACT: Stomach, small bowel, appendix, colon and rectum appearunremarkable. There is no bowel wall pneumatosis, peritoneal free air,ascites or abscess. MESENTERIC VESSELS: Portal veins and mesenteric vessels are patent. AORTA / IVC: The aorta and IVC are normal in caliber. REPRODUCTIVE: As visible by CT, within normal limits. No pelvic freefluid. URINARY BLADDER: Normal. OTHER FINDINGS: None. LYMPH NODES: Normal. OSSEOUS STRUCTURES AND SOFT TISSUES: Normal. IMPRESSION: Unremarkable contrast enhanced abdomen and pelvis CT. Normal appendix. Report reviewed and signed by : Dr. Darrius Frausto on 01/01/2025 10:33 PM.Workstation Name - [id number] -------- FINAL REPORT -------- Dictated By: Darrius Frausto Dictated Date: 01/01/2025 23:31 ET Assigned Physician: Darrius Frausto Reviewed and Electronically Signed By: Darrius Frausto Signed Date: 01/01/2025 23:33 ET Workstation ID: [id number] Transcribed By: Self Edit Transcribed Date: 01/01/2025 23:31 ET us Jose Armando Umana MD IMG CT PROCEDURES Final Result * RHYTHM ECG, REPORT (01/01/2025 9:46 PM EST) Narrative Jose Armando Umana MD - 01/01/2025 9:46 PM EST Jose Armando Umana MD ? 01/02/2025 ??3:37 AM ECG Rhythm Interpretation and Report Date/Time: 01/01/2025 9:46 PM Performed by: Jose Armando Umana MD Authorized by: Jose Armando Umana MD ?? ECG interpreted by ED Physician in the absence of a head up operator helper: yes ?? Interpretation: ??Interpretation: normal ?Details: ??Normal sinus rhythm with a ventricular rate of 61 bpm. ??PACs occasionally seen. ??Normal [place], QRS, QTc, axis. ??No acute ischemic changes. us Jose Armando Umana MD ECG ORDERABLES Final Result * ECG 12 lead (01/01/2025 9:37 PM EST) Ventricular Rate ECG 61 BPM GEMUSE Atrial Rate 61 BPM GEMUSE P-R Interval 140 ms GEMUSE QRS Duration 86 ms GEMUSE Q-T Interval 412 ms GEMUSE QTc 414 ms GEMUSE P Wave [place] 35 degrees GEMUSE R [place] 39 degrees GEMUSE T [place] 28 degrees GEMUSE ECG Interpretation Sinus rhythm with premature atrial complexes Otherwise normal ECG No previous ECGs available Confirmed by Nikko Newsome ([id number]) on 01/02/2025 2:12:49 PM GEMUSE 01/01/2025 9:37 PM EST 01/02/2025 2:12 PM EST us Jose Armando Umana MD ECG ORDERABLES Final Result GEMUSE * (ABNORMAL) CBC auto differential (01/01/2025 9:21 PM EST) WBC 7.4 4.0 - 10.5 K/mcL LAB HEMETOLOGY METHOD 01/01/2025 9:35 PM [facility] RBC 4.46 4.20 - 5.40 M/mcL LAB HEMETOLOGY METHOD 01/01/2025 9:35 PM [facility] Hemoglobin 13.3 12.5 - 16.0 g/dL LAB HEMETOLOGY METHOD 01/01/2025 9:35 PM [facility] Hematocrit 39.2 37.0 - 47.0 % LAB HEMETOLOGY METHOD 01/01/2025 9:35 PM [facility] MCV 87.9 78.0 - 100.0 FL LAB HEMETOLOGY METHOD 01/01/2025 9:35 PM [facility] MCH 29.8 25.0 - 33.0 pcg LAB HEMETOLOGY METHOD 01/01/2025 9:35 PM [facility] MCHC 33.9 32.0 - 36.0 g/dL LAB HEMETOLOGY METHOD 01/01/2025 9:35 PM [facility] RDW 11.4(L) 12.1 - 16.2 % LAB HEMETOLOGY METHOD 01/01/2025 9:35 PM [facility] Platelets 271 150 - 450 K/mcL LAB HEMETOLOGY METHOD 01/01/2025 9:35 PM [facility] MPV 9.1 7.4 - 11.4 FL LAB HEMETOLOGY METHOD 01/01/2025 9:35 PM [facility] Neutrophils Relative 40.4(L) 44.0 - 74.0 % LAB HEMETOLOGY METHOD 01/01/2025 9:35 PM [facility] Lymphocytes Relative 50.0(H) 20.0 - 48.0 % LAB HEMETOLOGY METHOD 01/01/2025 9:35 PM [facility] Monocytes Relative 7.4 2.0 - 12.0 % LAB HEMETOLOGY METHOD 01/01/2025 9:35 PM [facility] Eosinophils Relative 1.4 0.0 - 6.0 % LAB HEMETOLOGY METHOD 01/01/2025 9:35 PM [facility] Basophils Relative 0.7 0.0 - 2.0 % LAB HEMETOLOGY METHOD 01/01/2025 9:35 PM [facility] Neutrophils Absolute 2.99 1.80 - 7.80 K/mcL LAB HEMETOLOGY METHOD 01/01/2025 9:35 PM [facility] Lymphocytes Absolute 3.70(H) 1.00 - 3.20 K/mcL LAB HEMETOLOGY METHOD 01/01/2025 9:35 PM [facility] Monocytes Absolute 0.55 0.00 - 0.80 K/mcL LAB HEMETOLOGY METHOD 01/01/2025 9:35 PM [facility] Eosinophils Absolute 0.10 0.00 - 0.50 K/mcL LAB HEMETOLOGY METHOD 01/01/2025 9:35 PM [facility] Basophils Absolute 0.05 0.00 - 0.20 K/mcL LAB HEMETOLOGY METHOD 01/01/2025 9:35 PM EST [facility] Blood Venous blood specimen / Unknown Venipuncture / Unknown 01/01/2025 9:21 PM EST 01/01/2025 9:33 PM EST us Jose Armando Umana MD LAB BLOOD ORDERABLES Final Res ult [facility] [address] [place] [address], [place] [phone] * Hepatic function panel (01/01/2025 9:21 PM EST) Total Protein 7.1 6.4 - 8.5 g/dL LAB CHEMISTRY METHOD 01/01/2025 9:57 PM [facility] Albumin 4.3 3.5 - 5.0 g/dL LAB CHEMISTRY METHOD 01/01/2025 9:57 PM [facility] Total Bilirubin 0.4 0.3 - 1.0 mg/dL LAB CHEMISTRY METHOD 01/01/2025 9:57 PM [facility] Bilirubin, Direct 0.1 0.0 - 0.2 mg/dL LAB CHEMISTRY METHOD 01/01/2025 9:57 PM [facility] Bilirubin, Indirect 0.3 mg/dL LAB CHEMISTRY METHOD 01/01/2025 9:57 PM [facility] ALT (SGPT) 12 7 - 52 unit/L LAB CHEMISTRY METHOD 01/01/2025 9:57 PM [facility] AST (SGOT) 17 5 - 40 unit/L LAB CHEMISTRY METHOD 01/01/2025 9:57 PM [facility] Alkaline Phosphatase 39 34 - 104 unit/L LAB CHEMISTRY METHOD 01/01/2025 9:57 PM [facility] Blood Venous blood specimen / Unknown Venipuncture / Unknown 01/01/2025 9:21 PM EST 01/01/2025 9:33 PM EST Jose Armando Umana MD LAB BLOOD ORDERABLES Final Res ult Performing Organization Address City/[facility]/ZIP Co de Phone Number [facility] [address] [place] [address], [place] [phone] * Lipase (01/01/2025 9:21 PM EST) Lipase 19 11 - 82 unit/L LAB CHEMISTRY METHOD 01/01/2025 9:57 PM EST [facility] Blood Venous blood specimen / Unknown Venipuncture / Unknown 01/01/2025 9:21 PM EST 01/01/2025 9:33 PM EST Jose Armando Umana MD LAB BLOOD ORDERABLES Final Res ult Performing Organization Address City/[facility]/ZIP Co de Phone Number [facility] [address] [place] [address], [place] [phone] * Basic metabolic panel (01/01/2025 9:21 PM EST) Pathologist [facility] Sodium 136 135 - 145 mmol/L LAB CHEMISTRY METHOD 01/01/2025 9:57 PM EST [facility] Potassium 3.8 3.5 - 5.1 mmol/L LAB CHEMISTRY METHOD 01/01/2025 9:57 PM [facility] Chloride 103 98 - 107 mmol/L LAB CHEMISTRY METHOD 01/01/2025 9:57 PM EST [facility] CO2 27 24 - 32 mmol/L LAB CHEMISTRY METHOD 01/01/2025 9:57 PM EST [facility] Anion Gap 6 5 - 14 LAB CHEMISTRY METHOD 01/01/2025 9:57 PM EST [facility] Glucose 91 70 - 199 mg/dL LAB CHEMISTRY METHOD 01/01/2025 9:57 PM EST [facility] BUN 17 7 - 17 mg/dL LAB CHEMISTRY METHOD 01/01/2025 9:57 PM [facility] Creatinine 0.96 0.50 - 1.00 mg/dL LAB CHEMISTRY METHOD 01/01/2025 9:57 PM EST [facility] eGFR 85 >=60 mL/min/1. 73m2 LAB CHEMISTRY METHOD 01/01/2025 9:57 PM EST [facility] Comment:Calculation based on the??Chronic Kidney Disease Epidemiology Collaboration (CKD-EPI) equation refit??without adjustment for race. BUN/Creatinine Ratio 17.7 12.0 - 20.0 LAB CHEMISTRY METHOD 01/01/2025 9:57 PM EST [facility] Calcium 9.2 8.4 - 10.2 mg/dL LAB CHEMISTRY METHOD 01/01/2025 9:57 PM EST [facility] Blood Venous blood specimen / Unknown Venipuncture / Unknown 01/01/2025 9:21 PM EST 01/01/2025 9:33 PM EST us Jose Armando Umana MD LAB BLOOD ORDERABLES Final Res ult [facility] [address] [place] [address], [place] [phone] * Culture urine (01/01/2025 9:18 PM EST) Culture, Urine Mixed urogenital otto, no uropathogens present. Suggest repeat specimen, if clinically indicated. 01/03/2025 8:32 AM [facility] Urine Urine specimen obtained by clean catch procedure / Unknown Non-blood Collection / Unknown 01/01/2025 9:18 PM EST 01/01/2025 9:40 PM EST us Jose Armando Umana MD LAB MICROBIOLOGY - GENERAL ORD ERABLES Final Result [facility] [address] [place] [address], [place] [phone] * (ABNORMAL) Urinalysis microscopic reflex urine culture (01/01/2025 9:18 PM EST) RBC, Urine 4(H) 0 - 3 /HPF 01/01/2025 9:40 PM EST [facility] WBC, Urine 4 0 - 5 /HPF 01/01/2025 9:40 PM EST [facility] Bacteria, Urine 1+(A) None /HPF 9:40 PM EST [facility] Squamous Epithelial, Urine 6(H) 0 - 5 /HPF 01/01/2025 9:40 PM EST [facility] Mucus, UA 1+ None /LPF 01/01/2025 9:40 PM EST [facility] Urine Urine specimen obtained by clean catch procedure / Unknown Non-blood Collection / Unknown 01/01/2025 9:18 PM EST 01/01/2025 9:33 PM EST us Jose Armando Umana MD LAB URINE ORDERABLES Final Res ult [facility] [address] [place] [address], [place] [phone] * (ABNORMAL) Urinalysis with reflex microscopic and culture (01/01/2025 9:18 PM EST) Color, Urine Yellow Colorless, Yellow LAB URINALYSIS - AUTOMATED METHOD 01/01/2025 9:36 PM EST [facility] Clarity, Urine Slightly Cloudy(A) Clear LAB URINALYSIS - AUTOMATED METHOD 01/01/2025 9:36 PM [facility] Specific [place] Urine >=1.030 1.005 - 1.030 LAB URINALYSIS - AUTOMATED METHOD 01/01/2025 9:36 PM [facility] pH, Urine 5.5 5.0 - 8.0 pH LAB URINALYSIS - AUTOMATED METHOD 01/01/2025 9:36 PM [facility] Leukocytes, Urine Negative Negative WBCs/mcL LAB URINALYSIS - AUTOMATED METHOD 01/01/2025 9:36 PM [facility] Nitrite, Urine Negative Negative LAB URINALYSIS - AUTOMATED METHOD 01/01/2025 9:36 PM [facility] Protein, Urine 30(A) Negative mg/dL LAB URINALYSIS - AUTOMATED METHOD 01/01/2025 9:36 PM [facility] Glucose, Urine Negative Negative mg/dL LAB URINALYSIS - AUTOMATED METHOD 01/01/2025 9:36 PM [facility] Ketones, Urine Negative Negative mg/dL LAB URINALYSIS - AUTOMATED METHOD 01/01/2025 9:36 PM [facility] Blood, Urine Trace(A) Negative mg/dL LAB URINALYSIS - AUTOMATED METHOD 01/01/2025 9:36 PM [facility] Urine Urine specimen obtained by clean catch procedure / Unknown Non-blood Collection / Unknown 01/01/2025 9:18 PM EST 01/01/2025 9:33 PM EST us Jose Armando Umana MD LAB URINE ORDERABLES Final Res ult [facility] [address] [place] [address], [place] [phone] documented in this encounter Visit Diagnoses Diagnosis PUD (peptic ulcer disease)- Primary Peptic ulcer, unspecified site, unspecified as acute or chronic, without mention of hemorrhage, perforation, or obstruction documented in this encounter Administered Medications Inactive Administered Medications - up to 3 most recent administrations Medication Order MAR Action Action Date Dose Rate Site aluminum-magnesium hydroxide-simethicone (MAALOX) 200-200-20 mg/5 mL suspension 30 mL 30 mL, oral, Once, On Tue01/01/25 at 2131, For 1 dose Given 01/01/2025 9:51 PM EST 30 mL iopamidoL (ISOVUE-370) 370 mg iodine /mL (76 %) injection 100 mL 100 mL, intravenous, Once in imaging, Starting on Tue01/01/25 at 2257, For 1 dose Given 01/01/2025 11:25 PM EST 100 mL lidocaine (XYLOCAINE) 2 % mouth solution 15 mL 15 mL, Mouth/Throat, Once, On Tue01/01/25 at 2131, For 1 dose Given 01/01/2025 9:51 PM EST 15 mL ondansetron (PF) (ZOFRAN) injection 4 mg 4 mg, intravenous, Once, On Tue01/01/25 at 2131, For 1 dose Given 01/01/2025 9:45 PM EST 4 mg sodium chloride 0.9 % bolus 1,000 mL 1,000 mL, intravenous, at 2,000 mL/hr, Administer over 30 Minutes, Once, On Tue01/01/25 at 2131, For 1 dose New Bag 01/01/2025 9:46 PM EST 1,000 mL 2000 mL/hr sodium chloride 0.9 % flush 10 mL 10 mL, intravenous, Once, On Tue01/01/25 at 2258, For 1 dose Given 01/01/2025 11:26 PM EST 10 mL sodium chloride 0.9 % intravenous solution 50 mL 50 mL, intravenous, Once in imaging, Starting on Tue01/01/25 at 2257, For 1 dose Given 01/01/2025 11:25 PM EST 50 mL documented in this encounter Active and Recently Administered Medications Times are shown in EST. Scheduled Medication Order 12/30/2024 12/31/2024 01/01/2025 aluminum-magnesium hydroxide-simethicone (MAALOX) 200-200-20 mg/5 mL suspension 30 mL (COMPLETED) 30 mL, oral, Once, On e 01/01/25 at 2130, For 1 dose 2150 (Given - Provid er: Bhavesh De Anda RN) iopamidoL (ISOVUE-370) 370 mg iodine /mL (76 %) injection 100 mL (COMPLETED) 100 mL, intravenous, Once in imaging, Starting on Tue01/01/25 at 2257, For 1 dose 2324 (Given - Provid er: Nica Matta) lidocaine (XYLOCAINE) 2 % mouth solution 15 mL (COMPLETED) 15 mL, Mouth/Throat, Once, On Tue01/01/25 at 213, For 1 dose 2150 (Given - Provid er: Bhavesh De Anda RN) ondansetron (PF) (ZOFRAN) injection 4 mg (COMPLETED) 4 mg, intravenous, Once, On e 01/01/25 at 2130, For 1 dose 2144 (Given - Provid er: Bhavesh De Anda RN) sodium chloride 0.9 % bolus 1,000 mL (COMPLETED) 1,000 mL, intravenous, at 2,000 mL/hr, Administer over 30 Minutes, Once, On Tue01/01/25 at 2130, For 1 dose 2145 (New Bag - Prov ider: Bhavesh De Anda RN)2253 (Stopped - Provider: Bhavesh De Anda RN) sodium chloride 0.9 % flush 10 mL (COMPLETED) 10 mL, intravenous, Once, On Tue01/01/25 at 2258, For 1 dose 2325 (Given - Provid er: Nica Matta) sodium chloride 0.9 % intravenous solution 50 mL (COMPLETED) 50 mL, intravenous, Once in imaging, Starting on Tue01/01/25 at 2257, For 1 dose 2324 (Given - Provid er: Nica Matta) documented in this encounter Additional Health Concerns Assessment Noted Time PHQ-9 Depression Total Score: 0 11/18/19 25 5:50 PM EST documented as of this encounter Care Teams Addressing Machine Operator Relationship Specialty Start Date End Date Nani Soler MD PCP - General 02/03/23 01/07/25 documented as of this encounter
--- OUTSIDE RECORDS SUMMARY | 2025-01-09 13:12 | XMS_ITS ---
Author Name [facility] Organization Unknown Results Test Name/Text Value Interpretation Date Range Source Lipase SerPl-cCnc 19unit/L Normal [id number] 11 - 82 [facility] BUN SerPl-mCnc 17mg/dL Normal [id number] 7 - 17 [facility] Creat SerPl-mCnc 0.96mg/dL Normal [id number] 0.5 - 1 [facility] eGFRcr SerPlBld CKD-EPI 2020 85mL/min/1.73m2 Normal [id number] - [facility] CO2 SerPl-sCnc 27mmol/L Normal [id number] 24 - 32 [facility] Glucose SerPl-mCnc 91mg/dL Normal [id number] 70 - 199 [facility] Anion Gap SerPl-sCnc 6 Normal [id number] 5 - 14 [facility] BUN/Creat SerPl 17.7 Normal [id number] 12 - 20 [facility] Chloride SerPl-sCnc 103mmol/L Normal [id number] 98 - 107 [facility] Calcium SerPl-mCnc 9.2mg/dL Normal [id number] 8.4 - 10 .2 [facility] Sodium SerPl-sCnc 136mmol/L Normal [id number] 135 - 145 [facility] Potassium SerPl-sCnc 3.8mmol/L Normal [id number] 3.5 - 5.1 [facility] ALT SerPl-cCnc 12unit/L Normal [id number] 7 - 52 [facility] Bilirub Direct SerPl-mCnc 0.1mg/dL Normal [id number] 0 - 0.2 [facility] ALP SerPl-cCnc 39unit/L Normal [id number] 34 - 104 [facility] AST SerPl-cCnc 17unit/L Normal [id number] 5 - 40 [facility] Bilirub Indirect SerPl-mCnc 0.3mg/dL Normal [id number] [facility] Bilirub SerPl-mCnc 0.4mg/dL Normal [id number] 0.3 - 1 [facility] Albumin SerPl-mCnc 4.3g/dL Normal [id number] 3.5 - 5 [facility] Prot SerPl-mCnc 7.1g/dL Normal [id number] 6.4 - 8.5 [facility] Bacteria #/area UrnS HPF 1+ Abnormal [id number] - [facility] Mucous Threads UrnS Ql Micro 1+ Normal [id number] - [facility] WBC #/area UrnS HPF 4/HPF Normal [id number] 0 - 5 [facility] RBC #/area UrnS HPF 4/HPF Above high normal [id number] 0 - 3 [facility] Squamous Epithelial, Urine 6/HPF Above high normal [id number] 0 - 5 [facility] Clarity Ur Slightly Cloudy Abnormal [id number] - [facility] Prot Ur Strip-mCnc 30mg/dL Abnormal [id number] - [facility] Glucose Ur Ql Negative Normal [id number] - [facility] Color Ur Yellow Normal [id number] - [facility] Hgb Ur Ql Trace Abnormal [id number] - [facility] pH Ur 5.5pH Normal [id number] 5 - 8 [facility] Leukocyte esterase Ur Ql Strip Negative Normal [id number] - [facility] Nitrite Ur Ql Negative Normal [id number] - [facility] Ketones Ur-mCnc Negative Normal [id number] - [facility] Sp Gr Ur 1.03 Normal [id number] 1.005 - 1.03 [facility] MCV RBC Auto 87.9FL Normal [id number] 78 - 100 [facility] Lymphocytes # Bld Auto 3.7K/mcL Above high normal [id number] 1 - 3.2 [facility] WBC # Bld Auto 7.4K/mcL Normal [id number] 4 - 10.5 [facility] Monocytes/leuk NFr Bld Auto 7.4% Normal [id number] 2 - 12 [facility] Platelet # Bld Auto 271K/mcL Normal [id number] 150 - 450 [facility] PMV Bld Auto 9.1FL Normal [id number] 7.4 - 11.4 [facility] MCH RBC Qn Auto 29.8pcg Normal [id number] 25 - 33 [facility] Eosinophil # Bld Auto 0.1K/mcL Normal [id number] 0 - 0.5 [facility] Neutrophils/leuk NFr Bld Auto 40.4% Below low normal [id number] 44 - 74 [facility] RBC # Bld Auto 4.46M/mcL Normal [id number] 4.2 - 5.4 [facility] Monocytes # Bld Auto 0.55K/mcL Normal [id number] 0 - 0.8 [facility] RDW RBC Auto-Rto 11.4% Below low normal [id number] 12. 1 - 16.2 [facility] Lymphocytes/leuk NFr Bld Auto 50% Above high normal [id number] 20 - 48 [facility] Eosinophil/leuk NFr Bld Auto 1.4% Normal [id number] 0 - 6 [facility] Basophils # Bld Auto 0.05K/mcL Normal [id number] 0 - 0.2 [facility] Neutrophils # Bld Auto 2.99K/mcL Normal [id number] 1.8 - 7.8 [facility] Hct VFr Bld Auto 39.2% Normal [id number] 37 - 47 [facility] Hgb Bld-mCnc 13.3g/dL Normal [id number] 12.5 - 16 [facility] MCHC RBC Auto-mCnc 33.9g/dL Normal [id number] 32 - 36 [facility] Basophils/leuk NFr Bld Auto 0.7% Normal [id number] 0 - 2 [facility] History of Medication Use Medication Directions Dispensed Refills Start Date End Date Stat metoclopramide (REGLAN) 5 mg tablet Take 1 tablet (5 mg total) by mouth 4 (four) times a day for 10 days. 01/02/2025 active lidocaine (XYLOCAINE) 2 % mouth solution 15 mL 15 mL, Mouth/Throat, Once, On Tue01/01/25 at 2131, For 1 dose 01/02/2025 5 completed sodium chloride 0.9 % bolus 1,000 mL 1,000 mL, intravenous, at 2,000 mL/hr, Administer over 30 Minutes, Once, On Tue01/01/25 at 213, For 1 dose 01/02/2025 5 completed ondansetron ODT (ZOFRAN-ODT) 4 mg disintegrating tablet Dissolve 1 tablet (4 mg total) on top of the tongue every 8 (eight) hours if needed for nausea or vomiting. 12/31/2024 active norethindrone-ethiny l estradiol (Junel ,) 1-20 mg-mcg per tablet Take 1 tablet by mouth 1 (one) time each day. 12/21/2024 active ondansetron (PF) (ZOFRAN) injection 4 mg 4 mg, intravenous, Once, On Tue01/01/25 at 213, For 1 dose 01/02/2025 5 completed levothyroxine (LevoxyL) 150 mcg tablet TAKE 1 TABLET BY MOUTH EVERY DAY active sodium chloride 0.9 % intravenous solution 50 mL 50 mL, intravenous, Once in imaging, Starting on Tue01/01/25 at 2257, For 1 dose 01/02/2025 5 completed aluminum-magnesium hydroxide-simethicon e (MAALOX) 200-200-20 mg/5 mL suspension 30 mL 30 mL, oral, Once, On Tue01/01/25 at 2131, For 1 dose 01/02/2025 5 completed LEVOXYL 175 mcg tablet Take 1 tablet (175 mcg total) by mouth daily. 11/28/2024 active promethazine (PHENERGAN) 6.25 mg/5 mL syrup Take 5 mLs (6.25 mg total) by mouth every 6 (six) hours as needed for nausea for up to 5 days. 01/01/2025 active sodium chloride 0.9 % flush 10 mL 10 mL, intravenous, Once, On Tue01/01/25 at 2258, For 1 dose 01/02/2025 5 completed ondansetron (ZOFRAN-ODT) 4 mg disintegrating tablet 1 tablet (4 mg total) by Transmucosal route. 12/31/2024 active iopamidoL (ISOVUE-370) 370 mg iodine /mL (76 %) injection 100 mL 100 mL, intravenous, Once in imaging, Starting on Tue01/01/25 at 2257, For 1 dose 01/02/2025 5 completed omeprazole (PriLOSEC) [address] capsule Take 1 capsule (20 mg total) by mouth 1 (one) time each day. Do not crush or chew. 01/01/2025 active hydrOXYzine (ATARAX) 10 MG tablet 04/18/2024 4 aborted busPIRone (BUSPAR) 7.5 MG tablet TAKE 1 TABLET BY MOUTH TWICE A DAY 02/27/2024 4 aborted Levoxyl 150 MCG tablet Take 150 mcg by mouth. 05/28/2024 active Problems Problem Status Onset Date Problem Type Date of Resolution Source Current moderate episode of major depressive disorder without prior episode active 2022-05-[address] [facility] MDD (major depressive disorder), recurrent, in partial remission active 2024-11-19 Problem[facility] Vasovagal syncope active 2017-11-22 ProblemAct [facility] Abdominal pain, epigastric active EncounterDiagnosisAct [facility] Exercise-induced asthma active 2018-06-01 ProblemAct [facility] Endometriosis active 2025-01-01 Problem[address] [facility] Overweight with body mass index (BMI) 25.0-29.9 active 2019-06-04 ProblemAct [facility] Nausea active 2025-01-01 [address] [facility] Congenital iodine-deficiency syndrome active 2024-11-19 ProblemAct [facility] Hypothyroidism active 2007-10-02 [address] [facility] Concussion with no loss of consciousness, subsequent encounter active 2017-11-22 ProblemAct [facility] Suicide attempt by drug ingestion active 2022-05-13 ProblemAct [facility] Cluster B personality disorder active 2024-11-19 ProblemAct [facility] Generalized anxiety disorder with panic attacks active 2022-05-[address] [facility] Dizziness active EncounterDiagnosisAct [facility] Facial contusion, initial encounter [facility] Vaccine Date Source Lot Number Status MMR, measles mumps and rubel la Live (Priorix; M-M-R II) 12mo and older 08/23/2005 [facility] completed Influenza trivalent, 0.5mL, preservative free (Fluarix; FluLaval; Fluzone) ages 6mo and older (Afluria) 3 years and older 08/26/2005 [facility] completed H1N1 Inj Preservative Free 01/15/2010 [facility] [id number] completed Pneumococcal Conjugate Vaccine, 7 Valent 2001 [facility] completed DTaP (Infanrix) 6wks to less than 7yo 01/29/2002 [facility] completed IPV Inactivated polio (Ipol) 6wks and older 08/23/2005 [facility] completed DTaP (Infanrix) 6wks to less than 7yo 2001 [facility] completed Influenza trivalent, 0.5mL, preservative free (Fluarix; FluLaval; Fluzone) ages 6mo and older (Afluria) 3 years and older 10/22/2009 [facility] [id number] completed OQmI-NEC-EKE (Pentacel) 2mo to less than 5yo 11/01/2002 [facility] completed Meningococcal MCV4P 11/20/2012 [facility] [id number] compl eted Influenza trivalent, 0.5mL, preservative free (Fluarix; FluLaval; Fluzone) ages 6mo and older (Afluria) 3 years and older 10/09/2008 [facility] [id number] completed IPV Inactivated polio (Ipol) 6wks and older 2001 [facility] completed IPV Inactivated polio (Ipol) 6wks and older 05/25/2002 [facility] IPV Inactivated polio (Ipol) 6wks and older 2001 [facility] completed Tdap Tetanus diptheria acell ular pertussis (Boostrix; Adacel) 7yo and older 05/19/2022 [facility] [id number] completed Pfizer SARS-CoV-2 COVID-19, mRNA, LNP-S, preservative free 04/23/2021 [facility] completed Influenza trivalent, 0.5mL, preservative free (Fluarix; FluLaval; Fluzone) ages 6mo and older (Afluria) 3 years and older 10/02/2007 [facility] [id number] completed Pneumococcal Conjugate Vaccine, 7 Valent 2001 [facility] completed Influenza trivalent, 0.5mL, preservative free (Fluarix; FluLaval; Fluzone) ages 6mo and older (Afluria) 3 years and older 11/20/2012 [facility] [id number] completed Pneumococcal Conjugate Vaccine, 7 Valent 01/29/2002 [facility] completed Tdap Tetanus diptheria acell ular pertussis (Boostrix; Adacel) 7yo and older 11/20/2012 [facility] [id number] completed Influenza trivalent, 0.5mL, preservative free (Fluarix; FluLaval; Fluzone) ages 6mo and older (Afluria) 3 years and older 09/08/2006 [facility] [id number] completed Hepatitis B Pediatric (Enger ix B; Recombivax HB) to less than 20 yo 05/25/2002 [facility] com pleted DTaP (Infanrix) 6wks to less than 7yo 08/23/2005 [facility] completed SHlP-JTF-NSL (Pentacel) 2mo to less than 5yo 2001 [facility] completed Influenza trivalent, 0.5mL, preservative free (Fluarix; FluLaval; Fluzone) ages 6mo and older (Afluria) 3 years and older 10/28/2010 [facility] [id number] completed HPV 9-valent (Gardisil) 9yo to less than 46yo 12/17/2019 [facility] [id number] completed FHwC-UYX-OSW (Pentacel) 2mo to less than 5yo 01/29/2002 [facility] completed HPV 9-valent (Gardisil) 9yo to less than 46yo 08/06/2019 [facility] [id number] completed CYcR-OZV-DDG (Pentacel) 2mo to less than [address] [facility] completed Influenza trivalent, 0.5mL, preservative free (Fluarix; FluLaval; Fluzone) ages 6mo and older (Afluria) 3 years and older 11/18/2011 [facility] [id number] completed Varicella live (Varivax) 12mo and older 07/31/2002 [facility] completed Hepatitis B Pediatric (Enger ix B; Recombivax HB) to less than 20 yo 2001 [facility] com pleted Pfizer SARS-CoV-2 COVID-19, mRNA, LNP-S, preservative free 02/24/2021 [facility] completed DTaP (Infanrix) 6wks to less than 7yo 2001 [facility] completed Meningococcal MCV4P 06/01/2018 [facility] [id number] compl eted Varicella live (Varivax) 12mo and older 10/09/2008 [facility] H 1155X completed H1N1 Inj Preservative Free 10/22/2009 [facility] [id number] completed MMR, measles mumps and rubel la Live (Priorix; M-M-R II) 12mo and older 07/31/2002 [facility] completed DTaP (Infanrix) 6wks to less than 7yo 11/01/2002 [facility] completed HPV 9-valent (Gardisil) 9yo to less than 46yo 06/04/2019 [facility] [id number] completed Hepatitis B Pediatric (Enger ix B; Recombivax HB) to less than 20 yo 2001 [facility] com pleted Encounters Encounter Type Encounter Reason Primary Diagnosis Location Date Emergency abd pain was here last night Epigastric pain [facility] 01/02/2025 Emergency ABDOMINAL PAIN Peptic ulcer, si te unspecified, unspecified as acute or chronic, without hemorrhage or perforation [facility] 01/01/2025 Ambulatory Nausea alone Nausea alone [facility] 01/01/2025 Ambulatory Lab Collection Dizziness and giddiness [facility] 10/29/2024 Ambulatory or Rectal [facility] 10/26/2024 Ambulatory Contusion of other part of head, initial encounter Contusion of other part of head, initial encounter Troy [facility]Cab 07/13/2024 Care Team Organization Name Specialty Phone Email Start Date End Da te [facility] JEZ HERNANDEZHR Primary Care 01/02/2025 [facility] 01/02/[address] [facility] NO PCP Primary Care 10/27 [facility] 07/17/2024 Troy LeCab 07/13/2024
--- OUTSIDE RECORDS SUMMARY | 2025-01-09 13:12 | XMS_ITS | Encounter Summary ---
Author Organization [facility] Address [address] [place] [address] Care Team Providers Care Supplier Development Manager Name Role Phone Sofia Haddad NP Primary Care Provider [phone] Reason for Visit * Reason Onset Date Comments Med Refill 12/11/2024 Encounter Details Date Type Department Care Team (Late st Contact Info) Description 12/11/2024 Telephone Obstetrics and Gynecology [facility] [address] [place] [id number] Marbella Meredith, [address] [id number] Med Refill Social History Tobacco Use Types Packs/Day Years [...] care for your loved ones. For example, child care center administrator or elderly care for an older adult? [...] PM EST documented as of this encounter Ordered Prescriptions Prescription Sig Dispense Quantity Refills Last Filled Start Date End Date norethindrone (CAMRON,KAR,HEAT HER,MICRONOR) 0.35 mg tablet Take 1 tablet (0.35 mg total) by mouth 1 (one) time each day. 84 tablet 4 12/11/2024 12/21/2024 documented in this encounter Progress Notes * Sheyla Willis - 12/11/2024 1:44 PM EST Pt aware of message below. * Mya Munoz MA - 12/11/2024 1:38 PM EST LVM for patient to call [facility] and asked to speak to obgyn floor nurse. Please call pt to let her know that I sent an rx for PoPs to her pharmacy. It is important that she take the pill within two hours of the same time every day. The pills should decrease the pain she experiences with her period, but it is normal to have some irregular bleeding with this type of pill. * Marbella Meredith CNM - 12/11/2024 11:41 AM EST Please call pt to let her know that I sent an rx for PoPs to her pharmacy. It is important that shetake the pill within two hours of the same time every day. The pills should decrease the pain she experiences with her period, but it is normal to have some irregular bleeding with this type of pill. * Aleah Dinh - 12/11/2024 9:43 AM EST Pt calling, states last office visit with provider it was discussed on what BCP she had wanted to start. Pt states she has thought about it and would like to start the BCP (only with progesterone). [facility] [address] [place] documented in this encounter Plan of Treatment Upcoming Encounters Date Type Department Care Team (Late st Contact Info) Description 01/14/2025 2:00 PM EDT Office Visit Obstetrics and [facility]necology [facility] [address] [place] [phone] Bailee Albarran DO [address] [place] [address] 01/31/2025 3:30 PM EDT Consult Gastroenterology - [address] [facility] [address] [place] [phone] Radha Sanon, CAR ICER [address] [facility] [address] [place] [address] documented as of this encounter Visit Diagnoses Not on filedocumented in this encounter Additional Health Concerns Assessment Noted Time PHQ-9 Depression Total Score: 0 11/18/19 5:50 PM EST documented as of this encounter Care Teams Supplier Development Manager Relationship Specialty Start Date End Date Sofia Haddad NP [address] Dylan Howell [facility] [address] [place] [id number] PCP - General Internal Medicine 01/08/25 documented as of this encounter
--- OUTSIDE RECORDS SUMMARY | 2025-01-09 13:12 | XMS_ITS | Encounter Summary ---
Author Organization [facility] Address [address] [place] [address] Care Team Providers Care Swimming Pool Serviceperson Name Role Phone Nani Soler MD Primary Care Provider [phone] Reason for Visit * Reason Comments Abdominal Pain Pt seen here yesterd ay for abd pain, dx with PUD with outpt follow up with GI. Pt given script for omeprazole. Encounter Details Date Type Department Care Team (Late st Contact Info) Description 01/02/2025 2:22 PM EST - 01/02/2025 4:25 PM EST [facility] Emergency [address] [place] [address] Abdominal pain, epigastric (Primary Dx) Discharge Disposition: Home or Self [...] your loved ones. For example, child care leader or elderly care for an older adult? [...] Sign Reading Time Taken Comments Blood Pressure 128/86 01/02/2025 4:13 PM EST Pulse 66 01/02/2025 4:13 PM EST Temperature 36.4 ??C (97.5 ??F) 01/02/2025 4:13 PM ES T Respiratory Rate 18 01/02/2025 4:13 PM EST Oxygen Saturation 100% 01/02/2025 4:13 PM EST Inhaled Oxygen Concentration - - Weight 62.6 kg (138 lb) 01/02/2025 4:13 PM EST Height 165.1 cm (5' 5 ) 01/02/2025 4:13 PM EST Body Mass Index 22.96 01/02/2025 4:13 PM EST documented in this encounter Discharge Instructions * Attachments The following attachments cannot be sent through Care Everywhere. * Acid-Reducing Medicines: General Info (South Korean) documented in this encounter Medications at Time of Discharge levothyroxine (LevoxyL) 150 mcg tablet TAKE 1 TABLET BY MOUTH EVERY DAY metoclopramide (REGLAN) 5 mg tablet Take 1 tablet (5 mg total) by mouth 4 (four) times a day for 10 days. 40 each 01/02/2025 5 norethindrone-ethiny l estradiol (Junel 11/19, ,) 1-20 mg-mcg per tablet Take 1 [...] needed for nausea or vomiting. 30 tablet 01/02/2025 documented as of this encounter Ordered Prescriptions Prescription Sig Dispense Quantity Refills Last Filled Start Date End Date metoclopramide (REGLAN) 5 mg tablet Take 1 tablet (5 mg total) by mouth 4 (four) times a day for 10 days. 40 each 01/02/2025 01/12/2025 documented in this encounter Discharge Disposition Disposition Code Departure Means Destination Comment s Home or Self Care documented in this encounter Progress Notes * Padmini Mccarthy NP - 01/02/2025 2:07 PM EST Chief Complaint: Chief Complaint Patient presents with Abdominal Pain Pt seen here yesterday for abd pain, dx with PUD with outpt follow up with GI. Pt given script for omeprazole. History of Present Illness: 24 y.o. female presents to the Emergency Department for evaluation of a two week history of severe abdominal pain with decreased PO intake. Seen last night here in the emergency department for similar symptoms. She received a GI cocktail with good relief of pain. Blood work and CT scan completed and negative for acute findings. She states she woke with the same severe pain earlier this morning. She took the prescribed omeprazole with no relief of pain. She denies any nausea, vomiting, diarrhea,constipation, fever, chills Past Medical History: Diagnosis Date Other and unspecified noninfectious gastroenteritis and colitis(558.9) DX:Other and unspecified noninfectious gastroenteritis and colitis(558.9) Pneumonia, organism unspecified(486) DX:Pneumonia, organism unspecified(486) Unspecified asthma(493.90) DX:Unspecified asthma(493.90); COMMENT: when had pneumonia when young Unspecified hypothyroidism DX:Unspecified hypothyroidism History reviewed. No pertinent surgical history. Family History Problem Relation Name Age of Onset Allergies Father tylenol with codeine Alcohol abuse Mother's Sister Mercedez Gallardo Alcohol abuse Mother's Brother Gokul Gallardo Alcohol abuse Mother's Brother Edi Gallardo Other cancer Maternal Grandfather Prem Gallardo thinks stomach, rare cancer Crohn's disease Maternal Grandfather Prem Gallardo Cancer Maternal Grandfather Prem Gallardo Other (Other: MGGM with [facility] age 35 and ) Mother's side Breast cancer Neg Hx Ovarian cancer Neg Hx Prostate cancer Neg Hx Colon cancer Neg Hx Kidney cancer Neg Hx Pancreatic cancer Neg Hx Uterine cancer Neg Hx Social History Tobacco Use Smoking status: Never Smokeless tobacco: Never Substance Use Topics Alcohol use: Not Currently Drug use: Not Currently Types: Marijuana/Cannabis Review of Systems: Pertinent positive and negatives as documented in the HPI. Physical Exam: Vitals: 01/02/25 1422 BP: (!) 134/90 Pulse: Resp: Temp: SpO2: Physical Exam Vitals and nursing note reviewed. Constitutional: General: She is not in acute distress. Appearance: She is normal weight. HENT: Head: Normocephalic and atraumatic. Right Ear: External ear normal. Left Ear: External ear normal. Nose: Nose normal. Mouth/Throat: Mouth: Mucous membranes are moist. Cardiovascular: Rate and Rhythm: Normal rate and regular rhythm. Pulmonary: Effort: Pulmonary effort is normal. Breath sounds: Normal breath sounds. Abdominal: Tenderness: There is abdominal tenderness in the right lower quadrant, epigastric area, suprapubic area and left lower quadrant. Musculoskeletal: General: Normal range of motion. Skin: General: Skin is warm and dry. Capillary Refill: Capillary refill takes less than 2 seconds. Neurological: Mental Status: She is alert. Mental status is at baseline. ED Course: Procedures No orders to display Labs Reviewed - No data to display Medical Decision Making 24-year-old female here in the emergency department for concerns for recurring abdominal pain Old records reviewed for previous notes, imaging, EKGs, and labs with independent interpretation ofdiagnostics as needed. CT scan completed yesterday, reviewed, showing no evidence of acute findings. Blood work essentially unremarkable and urinalysis showing no evidence of urinary tract infection. Additional HPI obtained from patient's family. Patient assessed in the emergency department with nosigns of acute distress. GI cocktail given based on patient's symptoms with good relief of symptoms, per patient. Reglan sent to patient preferred pharmacy for further management of nausea she statesthat she has Zofran at home which is not helping with her symptoms. Patient educated to continue use of previously prescribed omeprazole and follow-up with GI she may require an endoscopy for furtherevaluation of GI discomfort. Patient educated that she can continue qsfe-lhl-favyocn Maalox for further relief of symptoms Patient is safe for discharge with plan to manage discomfort or fevers with vlbb-dpe-vencogi Tylenol and/or NSAIDS such as Motrin or Aleve, with dosing as per packaging. History, physical, diagnostics, and plan discussed with patient with no unanswered questions at this time. Strict return precautions given to return to the emergency department with new, worsening, or concerning symptoms. Recommended to follow-up with their primary care provider in 24 to 48 hours for further treatment and management. Patient was hemodynamically stable at time of discharge. Additional imaging was considered but deemed unnecessary this time. Antibiotics were considered, however; no bacterial infection was identified at this time requiring antibiotic therapy. Problems Addressed: Abdominal pain, epigastric: acute illness or injury Clinical Impressions as of 01/02/25 1626 Abdominal pain, epigastric Diagnoses: No diagnosis found. New Prescriptions No medications on file Complexity Summary Category 1 Components - Tests, documents, or independent historians: [] Reviewed prior external records from a unique source(s) as described in my note [] Ordered unique test(s) [] Reviewed unique test(s) [] Discussed case with independent historian(s) as described in my note [] Considered specific lab(s), imaging, and/or treatment(s) which not may not have been ultimately pursued as described in my note Category 2 Components - Independent interpretation of tests: [] Independently interpreted outside testing/imaging ordered by another provider as described in mynote [] Independently interpreted EKG(s) as included in my note [] Independently interpreted lab(s) as included in my note [] Independently interpreted xray(s) as included in my note [] Independently interpreted CT(s) as included in my note [] Independently interpreted ultrasound and/or POCUS as included in my note [] Independently interpreted rhythm strip(s) as included in my note Category 3 Components - Discussion of management and/or test results: [] Consultation - Discussed management and/or test interpretation with external health direct care professional [] Admission/Observation - Patient's presentation, diagnostics, and/or treatment was discussed withthe admitting provider Risk Summary High: [x] Decisions made regarding hospitalization or escalation of care [] CT scan with IV contrast performed [] [...] poor prognosis Moderate: [] Prescription drug management [] Administration of IV fluids [] Radiation exposure from CT scan, or head/neck/torso x-rays [] Diagnosis or treatment significantly limited by social determinants of health as described in mynote [] Rigid musculoskeletal immobilization applied [] Decisions made regarding procedures performed that could classify as minor surgery [] Decisions made regarding minor surgery with identified patient or procedure risk factors [] Infant/pediatric OTC meds administered (Tylenol < 24 mo, Ibuprofen < 6 mo, Benadryl < 6yrs) Low: [] Radiation exposure from extremity x-rays [] Ruddy wrap and/or superficial dressing applied [] Pediatric OTC meds administered (Tylenol > 24 mo, Ibuprofen > 6 mo, Benadryl > 6 yrs) 12-Lead EKG Interpretation [] I independently interpreted the 12-lead EKG as [...] feel free to contact me for clarification. Padmini Mccarthy NP 01/02/25 0731 Padmini Mccarthy NP 01/02/25 5837 Cosigned by Murray Shearer MD at 01/02/2025 6:54 PM EST Associated attestation - Murray Shearer MD - 01/02/2025 6:54 PM EST I performed a history and physical examination and discussed the patient management with preceding Advanced Practice Provider. I agree with the history and physical assessment and plan of care, with the following exceptions: None I was present for the following wilkerson procedures: None Murray Shearer MD documented in this encounter Plan of Treatment Upcoming Encounters Date Type Department Care Team (Late st Contact Info) Description 01/14/2025 2:00 PM EDT Office Visit Obstetrics and [facility]necology - [address] [place] [address] Bailee Albarran DO [address] [facility] [place] [address] 01/31/2025 3:30 PM EDT Consult Gastroenterology - [address] [facility] [address] [place] [address] Radha Sanon, BRAKES INSPECTOR [address] [place] [address] documented as of this encounter Visit Diagnoses Diagnosis Abdominal pain, epigastric- Primary documented in this encounter Administered Medications Inactive Administered Medications - up to 3 most recent administrations Medication Order MAR Action Action Date Dose Rate Site aluminum-magnesium hydroxide-simethicone (MAALOX) 200-200-20 mg/5 mL suspension 30 mL 30 mL, oral, Once, On Tue01/02/25 at 1445, For 1 dose Given 01/02/2025 3:04 PM EST 30 mL lidocaine (XYLOCAINE) 2 % mouth solution 15 mL 15 mL, Mouth/Throat, Once, On Tue01/02/25 at 1445, For 1 dose Given 01/02/2025 3:04 PM EST 15 mL documented in this encounter Active and Recently Administered Medications Times are shown in EST. Scheduled Medication Order 12/31/2024 01/01/2025 01/02/2025 aluminum-magnesium hydroxide-simethicone (MAALOX) 200-200-20 mg/5 mL suspension 30 mL (COMPLETED) 30 mL, oral, Once, On Tue01/02/25 at 1445, For 1 dose 1504 (Given - Provid er: Tana Tran RN) lidocaine (XYLOCAINE) 2 % mouth solution 15 mL (COMPLETED) 15 mL, Mouth/Throat, Once, On Tue01/02/25 at 1445, For 1 dose 1504 (Given - Provid er: Tana Tran RN) documented in this encounter Additional Health Concerns Assessment Noted Time PHQ-9 Depression Total Score: 0 11/18/19 5:50 PM EST documented as of this encounter Care Teams Swimming Pool Serviceperson Relationship Specialty Start Date End Date Nani Soler MD PCP - General 02/03/23 01/07/25 documented as of this encounter
--- OUTSIDE RECORDS SUMMARY | 2025-01-09 13:12 | XMS_ITS | Encounter Summary ---
Author Organization [facility] Address [address] [place] [address] Care Team Providers Care Fire Hazard Inspector Name Role Phone Unknown Primary Care Provider [phone] Encounter Details Date Type Department Care Team (Late st Contact Info) Description 07/13/2024 Scanned Document [address] [place] [address] Provider, Generic Social History Tobacco Use Types Packs/Day Years Used Date Smoking Tobacco: Never Smokeless Tobacco: Never Sex and Gender Information Value Date Recorded Sex Assigned at Not on file Gender Identity Not on file Sexual Orientation Not on file documented as of this encounter Plan of Treatment Not on file documented as of this encounter Visit Diagnoses Not on filedocumented in this encounter Care Teams Fire Hazard Inspector Relationship Specialty Start Date End Date Unknown Unknow Provider Address PCP - General 07/13/24 documented as of this encounter
--- OUTSIDE RECORDS SUMMARY | 2025-01-09 13:12 | XMS_ITS | Encounter Summary ---
Author Organization [facility] Address [address] [place] [address] Care Team Providers Care Relay Motorman Name Role Phone Nani Soler MD Primary Care Provider [phone] Reason for Referral * Imaging (Routine) - Pending Review Specialty Diagnoses / Procedures Referred By Maria Cac zohra Referred To Contact Radiology Diagnoses Dysmenorrhea Procedures US Pelvis Non OB Complete w Transvaginal Marbella Meredith CNM [address] [place] [address] Phone: tel: fax: [facility] Referral ID Status Reason Start Date Expiration Date V isits Requested Visits Authorized [id number] Pending Review 12/21/2024 12/21/2025 1 1 Reason for Visit * Imaging (Routine) - Pending Review Specialty Diagnoses / Procedures Referred By Contjuan العلي Referred To Contact Radiology Diagnoses Dysmenorrhea Procedures US Pelvis Non OB Complete w Transvaginal Marbella Meredith CNM [address] [place] [address] Phone: tel: fax: [facility] Referral ID Status Reason Start Date Expiration Date V isits Requested Visits Authorized [id number] Pending Review 12/21/2024 12/21/2025 1 1 Encounter Details Date Type Department Care Team (Latest Contact Info) Description 12/25/2024 5:22 PM EST - 12/25/2024 11:59 PM EST Hospital Encounter Radiology Department - [address] [phone] Dysmenorrhea Discharge Disposition: Home or Self Care Social [...] care for your loved ones. For example, rn maternal child or elderly care for an older adult? [...] PM EST documented as of this encounter Medications at Time of Discharge levothyroxine (LevoxyL) 150 mcg tablet TAKE 1 TABLET BY MOUTH EVERY DAY norethindrone-ethiny l estradiol (Junel 11/19, ,) 1-20 mg-mcg per tablet Take 1 tablet by mouth 1 (one) time each day. 63 tablet 1 12/21/2024 ondansetron ODT (ZOFRAN-ODT) 4 mg disintegrating tablet Dissolve 1 tablet (4 mg total) on top of the tongue every 8 (eight) hours if needed for nausea or vomiting. 30 tablet 12/27/2024 5 documented as of this encounter Discharge Disposition Disposition Code Departure Means Destination Home or Self Care documented in this encounter Plan of Treatment Upcoming Encounters Date Type Department Care Team (Late st Contact Info) Description 01/14/2025 2:00 PM EDT Office Visit Obstetrics and Gynecology - [address] [place] [address] Bailee Albarran DO [address] [place] [address] 01/31/2025 3:30 PM EDT Consult Gastroenterology - [address] [facility] [address] [place] [phone] Radha Sanon, PERRI [address] [facility] [address] [address] documented as of this encounter Procedures Procedure Name Priority Date/Time Associated Diagnosis Comments US PELVIS NON OB COMPLETE W TRANSVAGINAL Routine 12/25/2024 5:55 PM EST Dysmenorrhea documented in this encounter Results * US Pelvis Non OB Complete w Transvaginal (12/25/2024 5:55 PM EST) Anatomical Region Laterality Modality Body, Pelvis Ultrasound 12/26/2024 8:08 AM EST Impressions 12/26/2024 8:11 AM EST No uterine or ovarian abnormality. POS [id number] -------- FINAL REPORT -------- Dictated By: Krystle Granger Dictated Date: 12/26/2024 08:08 ET Assigned Physician: Krystle Granger Reviewed and Electronically Signed By: Krystle Granger Signed Date: 12/26/2024 08:11 ET Workstation ID: [id number] Transcribed By: Self Edit Transcribed Date: 12/26/2024 08:08 ET Narrative 12/26/2024 8:11 AM EST PELVIC ULTRASOUND HISTORY: Dysmenorrhea. COMPARISON: ??None FINDINGS: Both transabdominal and endovaginal pelvic ultrasound were performed. ?? Uterus: Normal in size measuring 7.4 x 4.8 x 3.2 cm. ??No focal solid lesion. Endometrium: 0.2 cm in thickness which is within normal limits. ??No focal abnormality identified. Right ovary: Normal in size measuring 3.3 x 2.0 x 1.8 cm without abnormality. ?? Left ovary: Normal in size measuring 2.7 x 1.8 x 1.7 cm without abnormality. ?? Cul-de-sac: No free fluid. Procedure Note Krystle Granger MD - 12/26/2024 PELVIC ULTRASOUND HISTORY: Dysmenorrhea. COMPARISON: None FINDINGS: Both transabdominal and endovaginal pelvic ultrasound were performed. Uterus: Normal in size measuring 7.4 x 4.8 x 3.2 cm. No focal solidlesion. Endometrium: 0.2 cm in thickness which is within normal limits. No focalabnormality identified. Right ovary: Normal in size measuring 3.3 x 2.0 x 1.8 cm withoutabnormality. Left ovary: Normal in size measuring 2.7 x 1.8 x 1.7 cm withoutabnormality. Cul-de-sac: No free fluid. IMPRESSION: No uterine or ovarian abnormality. POS [id number] -------- FINAL REPORT -------- Dictated By: Krystle Granger Dictated Date: 12/26/2024 08:08 ET Assigned Physician: Krystle Granger Reviewed and Electronically Signed By: Krystle Granger Signed Date: 12/26/2024 08:11 ET Workstation ID: [id number] Transcribed By: Self Edit Transcribed Date: 12/26/2024 08:08 ET us Marbella Meredith CNM IMG US PROCEDURES Final Res ult documented in this encounter Visit Diagnoses Diagnosis Dysmenorrhea documented in this encounter Additional Health Concerns Assessment Noted Time PHQ-9 Depression Total Score: 0 11/18/19 25 5:50 PM EST documented as of this encounter Care Teams Relay Motorman Relationship Specialty Start Date End Date Nani Soler MD PCP - General 02/03/23 01/07/25 documented as of this encounter
--- OUTSIDE RECORDS SUMMARY | 2025-01-09 13:12 | XMS_ITS | Clinical Summary ---
Author Organization [facility] Address [address] [place] [address] Care Team Providers Care Heel Seat Flap Stapler Name Role Phone Unknown Primary Care Provider [phone] Allergies No known active allergies Medications Medication Sig Dispensed Refills Start Date End Date Status Levoxyl 150 MCG tablet Take 150 mcg by mouth. 05/28/2024 Active hydrOXYzine HCl (ATARAX) 10 MG tablet Take 10 mg by mouth as needed for anxiety. Active Social History Tobacco Use Types Packs/Day Years Used Date Smoking Tobacco: Never Smokeless Tobacco: Never Sex and Gender Information Value Date Recorded Sex Assigned at Not on file Gender Identity Not on file Sexual Orientation Not on file Last Filed Vital Signs Vital Sign Reading Time Taken Comments Blood Pressure 115/76 07/13/2024 11:50 AM EDT Pulse 73 07/13/2024 11:50 AM EDT Temperature 37.2 ??C (98.9 ??F) 07/13/2024 11:50 AM E DT Respiratory Rate 20 07/13/2024 11:50 AM EDT Oxygen Saturation 100% 07/13/2024 11:50 AM EDT Inhaled Oxygen Concentration - - Weight 65.8 kg (145 lb) 07/13/2024 11:50 AM EDT Height 162.6 cm (5' 4 ) 07/13/2024 11:50 AM EDT Body Mass Index 24.89 07/13/2024 11:50 AM EDT Plan of Treatment Health Maintenance Due Date Last Done Comments Hepatitis C Virus Screening 2001 HIV Screening 2014 HPV Vaccines (1 - 3-dose series) 2016 DTaP/Tdap/Td Vaccines (1 - Tdap) 2020 Hepatitis B Vaccines (1 of 3 - 19+ 3-dose series) 2020 Pap Smear (Ages 21-65) 2022 Influenza Vaccine 05/31/2024 COVID-19 Vaccine (1 - 2024-2 5 season) 2024 Pneumococcal Vaccine: Pediat colin (0-5 Years) and At-Risk Patients (6 to 49 Years) Aged Out No longer eligible b ased on patient's age to complete this topic Care Teams Heel Seat Flap Stapler Relationship Specialty Start Date End Date Unknown Unknow Provider Address PCP - General 07/13/24
--- OUTSIDE RECORDS SUMMARY | 2025-01-09 13:12 | XMS_ITS | Encounter Summary ---
Author Organization [facility] Address [address] [place] [address] Care Team Providers Care Cupola Repairer Name Role Phone Nani Soler MD Primary Care Provider [phone] Encounter Details Date Type Department Care Team (Late st Contact Info) Description 12/10/2024 Telephone Obstetrics and Gynecology [facility] [address] [place] [address] Marbella Meredith, [address] [address] Social History Tobacco Use Types Packs/Day Years [...] your loved ones. For example, child care teacher or elderly care for an older adult? [...] PM EST documented as of this encounter Progress Notes * Luz Harvey RN - 12/10/2024 2:53 PM EST Spoke with pt- c/o pelvic discomfort and cramping especially with periods. Was seen by her computational biologist- who checked her blood work, which is normal. Discussed BC options- will look BC options up and get back to us. * Luz Harvey RN - 12/10/2024 2:48 PM EST Left message to return call. * Aleah Dinh - 12/10/2024 2:45 PM EST Pt returning your call * Luz Harvey RN - 12/10/2024 9:36 AM EST Left message to return message. * Neha Moncada - 12/10/2024 9:22 AM EST Pt called is having a lot of cramping and pelvic discomfort - sent a [employer] chart message a few days ago is askng for a call back regarding this -please call to advise documented in this encounter Plan of Treatment Upcoming Encounters Date Type Department Care Team (Late st Contact Info) Description 01/14/2025 2:00 PM EDT Office Visit Obstetrics and Gynecology - [address] [place] [address] Bailee Albarran DO [address] [place] [address] 01/31/2025 3:30 PM EDT Consult Gastroenterology - [address] [place] [phone] Radha Sanon, PERRI [address] [place] [address] documented as of this encounter Visit Diagnoses Not on filedocumented in this encounter Additional Health Concerns Assessment Noted Time PHQ-9 Depression Total Score: 0 11/18/19 25 5:50 PM EST documented as of this encounter Care Teams Cupola Repairer Relationship Specialty Start Date End Date Nani Soler MD PCP - General 02/03/23 01/07/25 documented as of this encounter
--- OUTSIDE RECORDS SUMMARY | 2025-01-09 13:12 | XMS_ITS | Encounter Summary ---
Author Organization [facility] Address [address] [place] [address] Care Team Providers Care Efficiency Miner Name Role Phone Nani Soler MD Primary Care Provider [phone] Reason for Visit * Reason Onset Date Comments Med Refill 01/02/2025 Encounter Details Date Type Department Care Team (Late st Contact Info) Description 01/02/2025 Telephone Obstetrics and Gynecology [facility] [address] [place] [phone] Marbella Meredith, [address] [id number] Med Refill Social History Tobacco Use Types [...] care for your loved ones. For example, child's nurse or elderly care for an older adult? [...] Refills Last Filled Start Date End Date ondansetron ODT (ZOFRAN-ODT) 4 mg disintegrating tablet Dissolve 1 tablet (4 mg total) on top of the tongue every 8 (eight) hours if needed for nausea or vomiting. 30 tablet 01/02/2025 documented in this encounter Progress Notes * Luz Harvey RN - 01/02/2025 11:50 AM EST Rx was sent on 12/31/24. Resent today * Neha Moncada - 01/02/2025 11:38 AM EST Pts pharmacy faxed over a refill request for the pts zofran - please fax to [facility] on [address] in [place] documented in this encounter Plan of Treatment Upcoming Encounters Date Type Department Care Team (Late st Contact Info) Description 01/14/2025 2:00 PM EDT Office Visit Obstetrics [facility]necology - [facility] [address] [place] [address] Bailee Albarran DO [address] [place] [address] 01/31/2025 3:30 PM EDT Consult Gastroenterology - [address] [facility] [address] [place] [id number] Radha Sanon, FIELD REIMBURSEMENT MANAGER [address] [address] documented as of this encounter Visit Diagnoses Not on filedocumented in this encounter Discontinued Medications Medication Sig Discontinue Reason Start Date End Da te ondansetron ODT (ZOFRAN-ODT) 4 mg disintegrating tablet Dissolve 1 tablet (4 mg total) on top of the tongue every 8 (eight) hours if needed for nausea or vomiting. Reorder 12/31/2024 01/02/2025 documented as of this encounter Additional Health Concerns Assessment Noted Time PHQ-9 Depression Total Score: 0 11/18/19 5:50 PM EST documented as of this encounter Care Teams Efficiency Miner Relationship Specialty Start Date End Date Nani Soler MD PCP - General 02/03/23 01/07/25 documented as of this encounter
--- OUTSIDE RECORDS SUMMARY | 2025-01-09 13:12 | XMS_ITS | Clinical Summary ---
Author Organization Patient Business [employer] Formerly [facility] Address [address] [place] [address] Care Team Providers Care [employer] Name Role Phone Sofia Haddad NP Primary Care Provider Allergies Active Allergy Reactions Criticality Noted Date Comments Amoxicillin Hives Low 04/26/2024 Cimetidine Nausea And Vomiting 01/24/2006 Medications levothyroxine (LevoxyL) 150 mcg tablet TAKE 1 TABLET BY MOUTH EVERY DAY Active norethindrone-eth inyl estradiol (Junel ,) 1-20 mg-mcg per tablet Take 1 tablet by mouth 1 (one) time each day. 63 tablet 1 12/21/19 25 025 Active omeprazole (PriLOSEC) [address] capsule Take 1 capsule (20 mg total) by mouth 1 (one) time each day. Do not crush or chew. 30 each 01/02/20 25 025 Active ondansetron ODT (ZOFRAN-ODT) 4 mg disintegrating tablet Dissolve 1 tablet (4 mg total) on top of the tongue every 8 (eight) hours if needed for nausea or vomiting. 30 tablet 01/03/20 25 Active metoclopramide (REGLAN) 5 mg tablet Take 1 tablet (5 mg total) by mouth 4 (four) times a day for 10 days. 40 each 01/03/20 25 025 Active norethindrone (CAMRON,KAR,HEA THER,MICRONOR) 0.35 mg tablet Take 1 tablet (0.35 mg total) by mouth 1 (one) time each day. 84 tablet 4 12/11/19 25 025 Discontinued norgestimate-ethi nyl estradioL (ORTHO-CYCLEN) 0.25-35 mg-mcg per tablet Take 1 tablet by mouth 1 (one) time each day. 84 tablet 1 12/21/19 25 025 Discontinued norethindrone-eth inyl estradiol (Junel ,) 1-20 mg-mcg per tablet Take 1 tablet by mouth 1 (one) time each day. 84 tablet 1 12/21/19 25 025 Discontinued(R eorder) ondansetron ODT (ZOFRAN-ODT) 4 mg disintegrating tablet Dissolve 1 tablet (4 mg total) on top of the tongue every 8 (eight) hours if needed for nausea or vomiting. 30 tablet 12/27/19 25 025 Discontinued(R eorder) ondansetron ODT (ZOFRAN-ODT) 4 mg disintegrating tablet Dissolve 1 tablet (4 mg total) on top of the tongue every 8 (eight) hours if needed for nausea or vomiting. 30 tablet 01/01/20 25 025 Discontinued(R eorder) Active Problems Problem Noted Date Diagnosed Date Endometriosis 01/01/2025 Cluster B personality disorder 11/19/2024 Congenital iodine-deficiency syndrome 11/19/2024 MDD (major depressive disord er), recurrent, in partial remission 11/19/2024 Current moderate episode of major depressive disorder without prior episode 05/13/2022 Generalized anxiety disorder with panic attacks 05/13/2022 Suicide attempt by drug ingestion 05/13/2022 Overweight with body mass index (BMI) 25.0-29.9 06/04/2019 Exercise-induced asthma 06/01/2018 Concussion with no loss of c onsciousness, subsequent encounter 11/22/2017 Vasovagal syncope 11/22/2017 Hypothyroidism 10/02/2007 Encounters Date Type Department Care Team Description 01/02/2025 2:22 PM EST - 01/02/2025 4:25 PM EST Emergency [facility] Emergency [address] [place] [address] Abdominal pain, epigastric (Primary Dx) Discharge Disposition: Home or Self Care 01/02/2025 Telephone Obstetrics and Gynecology - [address] [address] Marbella Meredith CNM Med Refill 01/01/2025 9:08 PM EST - 01/01/2025 11:58 PM EST Emergency [facility] Emergency [address] [place] [id number] Jose Armando Umana MD PUD (peptic ulcer disease) (Primary Dx) Discharge Disposition: Home or Self Care 12/25/2024 5:22 PM EST - 12/25/2024 11:59 PM EST Hospital Encounter Radiology Department - [address] [address] Dysmenorrhea Discharge Disposition: Home or Self Care 12/11/2024 Telephone Obstetrics and Gynecology - [address] [address] Marbella Meredith CNM Med Refill 12/10/2024 Telephone Obstetrics and Gynecology - [address] [address] Marbella Meredith CNM 11/21/2024 Telephone Obstetrics and Gynecology [address] [address] Marbella Meredith CNM Request For Order(s) 11/19/2024 2:00 PM EST Office Visit Obstetrics and Gynecology - [address] [address] Marbella Meredith CNM Women's annual routine gynecological examination (Primary Dx); Dysmenorrhea; Hypothyroidism, unspecified type from Last 3 Months Immunizations Name Administration Dates Next Due DTaP (Infanrix) 6wks to less than 7yo ,11/01/2002,01/29/2002,11/29,2001 [id number] (Pentacel) 2mo to less than 5yo 11/01/2002,01/29/2002,2001,09/19 H1N1 Inj Preservative Free 01/15/2010,10/22/2009 HPV 9-valent (Gardisil) 9yo to less than 46yo 12/17/2019,08/06/2019,06/04/2019 Hepatitis B Pediatric (Enger ix B; Recombivax HB) to less than 20 yo 05/25/2002,2001,2001 IPV Inactivated polio (Ipol) 6wks and older 08/23/2005,05/25/2002,2001,09/19 Influenza trivalent, 0.5mL, preservative free (Fluarix; FluLaval; Fluzone) ages 6mo and older (Afluria) 3 years and older 11/20/2012,11/18/2011,10/28/2010,10/22,10/09/2008,10/02/2007,09/08/2006 ,08/26/2005 MMR, measles mumps and rubel la Live (Priorix; M-M-R II) 12mo and older 08/23/2005,07/31/2002 Meningococcal MCV4P 06/01/2018,11/20/2012 Pfizer SARS-CoV-2 COVID-19, mRNA, LNP-S, preservative free 04/23/2021,02/24/2021 Pneumococcal Conjugate Vacci ne, 7 Valent 01/29/2002,2001,2001 Tdap Tetanus diptheria acell ular pertussis (Boostrix; Adacel) 7yo and older 05/19/2022,11/20/2012 Varicella live (Varivax) 12m o and older 10/09/2008,07/31/2002 Medical History Medical History Date Comments Other and unspecified noninf ectious gastroenteritis and colitis(558.9) DX:Other and unspec ified noninfectious gastroenteritis and colitis(558.9) Unspecified asthma(493.90) DX:Un specified asthma(493.90); COMMENT: when had pneumonia when young Pneumonia, organism unspecified(486) DX:Pneumonia, organism unspecified(486) Unspecified hypothyroidism DX:Un specified hypothyroidism Family History Medical History Relation Name Comments Allergies Father tylenol with co deine Cancer Maternal Grandfather Prem Gallardo Crohn's disease Maternal Grandfather Prem Gallardo Other cancer Maternal Grandfather Prem Gallardo th inks stomach, rare cancer Alcohol abuse Mother's Brother 1 Gokul Gallardo Alcohol abuse Mother's Brother 2 Edi Gallardo Alcohol abuse Mother's Sister Mercedez Gallardo Other: MGGM with OH age 35 and Mother's side Breast cancer Neg Hx Colon cancer Neg Hx Kidney cancer Neg Hx Ovarian cancer Neg Hx Pancreatic cancer Neg Hx Prostate cancer Neg Hx Uterine cancer Neg Hx Relation Name Status Comments Father Alive 06/04/1973 Maternal Grandfather Prem Gallardo Mother Alive 05/19/1976 Mother's Brother 1 Gokul Gallardo Mother's Brother 2 Edi Gallardo Mother's Sister Mercedez Gallardo Mother's side Social History Tobacco Use Types Packs/Day Years Used Date Smoking Tobacco: Never Smokeless Tobacco: Never Tobacco Cessation:Counseling Given: Not Answered Alcohol Use Standard Drinks/Week Comments Not Currently [...] your loved ones. For example, child care team lead or elderly care for an older adult? [...] Orientation Straight 01/01/2025 9: 54 PM EST Obstetrics History Para Term AB IAB SAB Ectopic Multiple Livin g Live Births 0 0 0 0 0 0 0 0 0 0 0 Last Filed Vital Signs Vital Sign Reading [...] Mass Index 22.96 01/02/2025 4:13 PM EST Plan of Treatment Upcoming Encounters Date Type Department Care Team (Late st Contact Info) Description 01/14/2025 2:00 PM EDT Office [facility] [address] [place] [address] Bailee Albarran DO [address] [place] [address] 01/31/2025 3:30 PM EDT Consult Gastroenterology - [address] [place] [address] Radha Sanon, PACKAGE CAR DRIVER [address] [address] Health Maintenance Due Date Last Done Comments Pneumococcal Vaccine: Pediatrics (0 to 5 Years) and At-Risk Patients (6 to 64 Years) (1 of 1 - PPSV23) 2007 01/29/2002, 2001, 2001 Meningococcal B Vacine (1 of 2 - Standard) 2017 HIV Screening 10/03/2022 Hepatitis C Screening 10/03/2022 COVID-19 Vaccine ( season) 2024 04/23/2021, 02/24/2021 Influenza Vaccine (#1) 2024 3, 11/18/2011, 10/28/2010, Additional history exists Depression Screening 11/18/2025 11/18/2024 Social Influencers of Health Screening 11/18/2025 11/18/2024 Gonorrhea/Chlamydia Screening 11/19/2025 11/19/2024, 07/19/2024 Cervical Cancer Screening: Pap Smear 11/19/2027 11/19/2024 Cholesterol Screening (Lipid Panel) 03/23/2028 03/23/2023 DTaP,Tdap,and Td Vaccines (8 - Td or Tdap) 05/19/2032 05/19/2022, 11/20/2012, 08/23/2005, Additional history exists Hepatitis B Vaccines Completed 05/25/2002, 2001, 2001 HIB Vaccines Completed 11/01/2002, 2001, 2001, Additional history exists IPV Vaccines Completed 08/23/2005, 12/2002, 05/25/2002, Additional history exists MMR Vaccines Completed 08/23/2005, 07/31/2002 Varicella Vaccines Completed 10/09/2008, 07/31/2002 Meningococcal ACWY Vaccine Completed 06/01/2018, HPV Vaccines Completed 12/17/2019, 04/2019, 06/04/2019 Hepatitis A Vaccines Aged Out No long er eligible based on patient's age to complete this topic RSV Immunization Patients Under 20 months Aged Out No longer eligible based on patient's age to complete this topic Procedures Procedure Name Priority Date/Time Associated Diagnosis Comments CT ABDOMEN PELVIS W CONTRAST STAT 01/01/2025 11:20 PM EST RHYTHM ECG, REPORT Routine 01/01/2025 9: 46 PM EST ECG 12-LEAD STAT 01/01/2025 9:37 PM EST CBC WITH AUTO DIFFERENTIAL STAT 01/01/2025 9:21 PM EST HEPATIC FUNCTION PANEL STAT 01/01/2025 9:21 PM EST LIPASE STAT 01/01/2025 9:21 PM EST BASIC METABOLIC PANEL STAT 01/01/2025 9:21 PM EST CBC AND DIFFERENTIAL STAT 01/01/2025 9:21 PM EST ..URINALYSIS MICROSCOPIC REFLEX URINE CULTURE STAT 01/01/2025 9:18 PM EST URINALYSIS WITH REFLEX MICROSCOPIC AND CULTURE STAT 01/01/2025 9:18 PM EST URINALYSIS WITH REFLEX MICROSCOPIC AND CULTURE STAT 01/01/2025 9:18 PM EST CULTURE URINE STAT 01/01/2025 9:18 PM EST US PELVIS NON OB COMPLETE W TRANSVAGINAL Routine 12/25/2024 5:55 PM EST Dysmenorrhea CHLAMYDIA TRACHOMATIS AND NEISSERIA GONORRHOEAE BY TMA, THINPREP Routine 11/19/2024 2:33 PM EST Women's annual routine gynecological examination PAP SMEAR Routine 11/19/2024 2:33 PM EST Women's annual routine gynecological examination TRICHOMONAS VAGINALIS PCR Routine 11/19/2024 2:33 PM EST Women's annual routine gynecological examination LIPID PANEL Routine 03/23/2023 from Last 3 Months or Most Recently Relevant to Health Maintenance Results * CT Abdomen Pelvis w Contrast (01/01/2025 11:20 PM EST) Anatomical Region Laterality Modality Body Computed Tomogra phy 01/01/2025 11:3 1 PM EST Impressions 01/01/2025 11:33 PM EST Unremarkable contrast enhanced abdomen and pelvis CT. ??Normal appendix. Report reviewed and signed by : Dr. Darrius Frausto on 01/01/2025 10:33 PM. Workstation Name - [id number] -------- FINAL REPORT -------- Dictated By: Darrius Frausto Dictated Date: 01/01/2025 23:31 ET Assigned Physician: Darrius Frausto Reviewed and Electronically Signed By: Darrius Frausto Signed Date: 01/01/2025 23:33 ET Workstation ID: [id number] Transcribed By: Self Edit Transcribed Date: 01/01/2025 [...] Frausto on 01/01/2025 10:33 PM.Workstation Name - [id number] -------- FINAL REPORT -------- Dictated By: Darrius Frausto Dictated Date: 01/01/2025 23:31 ET Assigned Physician: Darrius Frausto Reviewed and Electronically Signed By: Darrius Frausto Signed Date: 01/01/2025 23:33 ET Workstation ID: [id number] Transcribed By: Self Edit Transcribed Date: 01/01/2025 [...] ED Physician in the absence of a plumbing manager: yes ?? Interpretation: ??Interpretation: normal ?Details: ??Normal sinus rhythm with a ventricular rate of 61 bpm. ??PACs occasionally seen. ??Normal NV, QRS, QTc, axis. ??No acute ischemic changes. us Jose Armando Umana MD ECG ORDERABLES Final Result * ECG 12 lead (01/01/2025 9:37 PM EST) Ventricular Rate ECG 61 BPM GEMUSE Atrial Rate 61 BPM GEMUSE P-R Interval 140 ms GEMUSE QRS Duration 86 ms GEMUSE Q-T Interval 412 ms GEMUSE QTc 414 ms GEMUSE P Wave Thurman 35 degrees GEMUSE R Thurman 39 degrees GEMUSE T Thurman 28 degrees GEMUSE ECG Interpretation Sinus rhythm with premature atrial complexes Otherwise normal ECG No previous ECGs available Confirmed by Nikko Newsome ([id number]) on 01/02/2025 2:12:49 PM GEMUSE 01/01/2025 9:37 PM EST 01/02/2025 2:12 PM EST us Jose Armando Umana MD ECG ORDERABLES Final Result GEMUSE * (ABNORMAL) CBC auto differential (01/01/2025 9:21 PM EST) Pathologist [facility] WBC 7.4 4.0 - 10.5 K/mcL LAB HEMETOLOGY METHOD 01/01/2025 9:35 PM [facility] RBC 4.46 4.20 - 5.40 M/mcL LAB HEMETOLOGY METHOD 01/01/2025 9:35 PM [facility] Hemoglobin 13.3 12.5 - 16.0 g/dL LAB HEMETOLOGY METHOD 01/01/2025 9:35 PM [facility] Hematocrit 39.2 37.0 - 47.0 % LAB HEMETOLOGY METHOD 01/01/2025 9:35 PM [facility] MCV 87.9 78.0 - 100.0 FL LAB HEMETOLOGY METHOD 01/01/2025 9:35 PM [facility] MCH 29.8 25.0 - 33.0 pcg LAB HEMETOLOGY METHOD 01/01/2025 9:35 PM [facility] MCHC 33.9 32.0 - 36.0 g/dL LAB HEMETOLOGY METHOD 01/01/2025 9:35 PM [facility] RDW 11.4(L) 12.1 - 16.2 % LAB HEMETOLOGY METHOD 01/01/2025 9:35 PM [facility] Platelets 271 150 - 450 K/mcL LAB HEMETOLOGY METHOD 01/01/2025 9:35 PM [facility] MPV 9.1 7.4 - 11.4 FL LAB HEMETOLOGY METHOD 01/01/2025 9:35 PM [facility] Neutrophils Relative 40.4(L) 44.0 - 74.0 % LAB HEMETOLOGY METHOD 01/01/2025 9:35 PM [facility] Lymphocytes Relative 50.0(H) 20.0 - 48.0 % LAB HEMETOLOGY METHOD 01/01/2025 9:35 PM [facility] Monocytes Relative 7.4 2.0 - 12.0 % LAB HEMETOLOGY METHOD 01/01/2025 9:35 PM [facility] Eosinophils Relative 1.4 0.0 - 6.0 % LAB HEMETOLOGY METHOD 01/01/2025 9:35 PM [facility] Basophils Relative 0.7 0.0 - 2.0 % LAB HEMETOLOGY METHOD 01/01/2025 9:35 PM [facility] Neutrophils Absolute 2.99 1.80 - 7.80 K/mcL LAB HEMETOLOGY METHOD 01/01/2025 9:35 PM [facility] Lymphocytes Absolute 3.70(H) 1.00 - 3.20 K/mcL LAB HEMETOLOGY METHOD 01/01/2025 9:35 PM [facility] Monocytes Absolute 0.55 0.00 - 0.80 K/mcL LAB HEMETOLOGY METHOD 01/01/2025 9:35 PM [facility] Eosinophils Absolute 0.10 0.00 - 0.50 K/mcL LAB HEMETOLOGY METHOD 01/01/2025 9:35 PM [facility] Basophils Absolute 0.05 0.00 - 0.20 K/mcL LAB HEMETOLOGY METHOD 01/01/2025 9:35 PM [facility] Blood Venous blood specimen / Unknown Venipuncture / Unknown 01/01/2025 9:21 PM EST 01/01/2025 9:33 PM EST Jose Armando Umana MD LAB BLOOD ORDERABLES Final Res ult [facility] [address] [place] [address], [place] [phone] * Lipase (01/01/2025 9:21 PM EST) [facility] Lipase 19 11 - 82 unit/L LAB CHEMISTRY METHOD 01/01/2025 9:57 PM EST [facility] Blood Venous blood specimen / Unknown Venipuncture / Unknown 01/01/2025 9:21 PM EST 01/01/2025 9:33 PM EST Jose Armando Umana MD LAB BLOOD ORDERABLES Final Res ult [facility] [address] [place] [address], [place] [phone] * Hepatic function panel (01/01/2025 9:21 PM EST) [facility] Total Protein 7.1 6.4 - 8.5 g/dL LAB CHEMISTRY METHOD 01/01/2025 9:57 PM EST [facility] Albumin 4.3 3.5 - 5.0 g/dL LAB CHEMISTRY METHOD 01/01/2025 9:57 PM EST [facility] Total Bilirubin 0.4 0.3 - 1.0 mg/dL LAB CHEMISTRY METHOD 01/01/2025 9:57 PM EST [facility] Bilirubin, Direct 0.1 0.0 - 0.2 mg/dL LAB CHEMISTRY METHOD 01/01/2025 9:57 PM EST [facility] Bilirubin, Indirect 0.3 mg/dL LAB CHEMISTRY METHOD 01/01/2025 9:57 PM [facility] ALT (SGPT) 12 7 - 52 unit/L LAB CHEMISTRY METHOD 01/01/2025 9:57 PM [facility] AST (SGOT) 17 5 - 40 unit/L LAB CHEMISTRY METHOD 01/01/2025 9:57 PM [facility] Alkaline Phosphatase 39 34 - 104 unit/L LAB CHEMISTRY METHOD 01/01/2025 9:57 PM [facility] Blood Venous blood specimen / Unknown Venipuncture / Unknown 01/01/2025 9:21 PM EST 01/01/2025 9:33 PM EST Jose Armando Umana MD LAB BLOOD ORDERABLES Final Res ult [facility] [address] [place] [address], [place] [phone] * Basic metabolic panel (01/01/2025 9:21 PM EST) Sodium 136 135 - 145 mmol/L LAB CHEMISTRY METHOD 01/01/2025 9:57 PM [facility] Potassium 3.8 3.5 - 5.1 mmol/L LAB CHEMISTRY METHOD 01/01/2025 9:57 PM [facility] Chloride 103 98 - 107 mmol/L LAB CHEMISTRY METHOD 01/01/2025 9:57 PM [facility] CO2 27 24 - 32 mmol/L LAB CHEMISTRY METHOD 01/01/2025 9:57 PM [facility] Anion Gap 6 5 - 14 LAB CHEMISTRY METHOD 01/01/2025 9:57 PM [facility] Glucose 91 70 - 199 mg/dL LAB CHEMISTRY METHOD 01/01/2025 9:57 PM [facility] BUN 17 7 - 17 mg/dL LAB CHEMISTRY METHOD 01/01/2025 9:57 PM EST [facility] Creatinine 0.96 0.50 - 1.00 mg/dL LAB CHEMISTRY METHOD 01/01/2025 9:57 PM [facility] eGFR 85 >=60 mL/min/1. 73m2 LAB CHEMISTRY METHOD 01/01/2025 9:57 PM [facility] Comment:Calculation based on the??Chronic Kidney Disease Epidemiology Collaboration (CKD-EPI) equation refit??without adjustment for race. BUN/Creatinine Ratio 17.7 12.0 - 20.0 LAB CHEMISTRY METHOD 01/01/2025 9:57 PM [facility] Calcium 9.2 8.4 - 10.2 mg/dL LAB CHEMISTRY METHOD 01/01/2025 9:57 PM [facility] Blood Venous blood specimen / Unknown Venipuncture / Unknown 01/01/2025 9:21 PM EST 01/01/2025 9:33 PM EST us Jose Armando Umana MD LAB BLOOD ORDERABLES Final Res ult [facility] [address] [place] [address], [place] [phone] * (ABNORMAL) Urinalysis with reflex microscopic and culture (01/01/2025 9:18 PM EST) Color, Urine Yellow Colorless, Yellow LAB URINALYSIS - AUTOMATED METHOD 01/01/2025 9:36 PM EST [facility] Clarity, Urine Slightly Cloudy(A) Clear LAB URINALYSIS - AUTOMATED METHOD 01/01/2025 9:36 PM [facility] Specific Sayre Urine >=1.030 1.005 - 1.030 LAB URINALYSIS - AUTOMATED METHOD 01/01/2025 9:36 PM [facility] pH, Urine 5.5 5.0 - 8.0 pH LAB URINALYSIS - AUTOMATED METHOD 01/01/2025 9:36 PM [facility] Leukocytes, Urine Negative Negative WBCs/mcL LAB URINALYSIS - AUTOMATED METHOD 01/01/2025 9:36 PM [facility] Nitrite, Urine Negative Negative LAB URINALYSIS - AUTOMATED METHOD 01/01/2025 9:36 PM [facility] Protein, Urine 30(A) Negative mg/dL LAB URINALYSIS - AUTOMATED METHOD 01/01/2025 9:36 PM [facility] Glucose, Urine Negative Negative mg/dL LAB URINALYSIS - AUTOMATED METHOD 01/01/2025 9:36 PM [facility] Ketones, Urine Negative Negative mg/dL LAB URINALYSIS - AUTOMATED METHOD 01/01/2025 9:36 PM [facility] Blood, Urine Trace(A) Negative mg/dL LAB URINALYSIS - AUTOMATED METHOD 01/01/2025 9:36 PM [facility] Urine Urine specimen obtained by clean catch procedure / Unknown Non-blood Collection / Unknown 01/01/2025 9:18 PM EST 01/01/2025 9:33 PM EST us Jose Armando Umana MD LAB URINE ORDERABLES Final Res ult [facility] [address] [place] [address], [place] [phone] * (ABNORMAL) Urinalysis microscopic reflex urine culture (01/01/2025 9:18 PM EST) RBC, Urine 4(H) 0 - 3 /HPF 01/01/2025 9:40 PM EST [facility] WBC, Urine 4 0 - 5 /HPF 01/01/2025 9:40 PM EST [facility] Bacteria, Urine 1+(A) None /HPF 9:40 PM EST [facility] Squamous Epithelial, Urine 6(H) 0 - 5 /HPF 01/01/2025 9:40 PM EST [facility] Mucus, UA 1+ None /LPF 01/01/2025 9:40 PM EST [facility] Urine Urine specimen obtained by clean catch procedure / Unknown Non-blood Collection / Unknown 01/01/2025 9:18 PM EST 01/01/2025 9:33 PM EST Jose Armando Umana MD LAB URINE ORDERABLES Final Res ult Performing Organization Address City/[facility]/ZIP Co de Phone Number [facility] [address] [place] [address], [place] [phone] * Culture urine (01/01/2025 9:18 PM EST) Culture, Urine Mixed urogenital otto, no uropathogens present. Suggest repeat specimen, if clinically indicated. 01/03/2025 8:32 AM EST [facility] Urine Urine specimen obtained by clean catch procedure / Unknown Non-blood Collection / Unknown 01/01/2025 9:18 PM EST 01/01/2025 9:40 PM EST Jose Armando Umana MD LAB MICROBIOLOGY - GENERAL ORD ERABLES Final Result Performing Organization Address City/[facility]/ZIP Co de Phone Number [facility] [address] [place] [address], [place] [phone] * US Pelvis Non OB Complete w Transvaginal (12/25/2024 5:55 PM EST) Anatomical Region Laterality Modality Body, Pelvis Ultrasound 12/26/2024 8:08 AM EST Impressions 12/26/2024 8:11 AM EST No uterine or ovarian abnormality. POS [id number] -------- FINAL REPORT -------- Dictated By: Krystle Granger Dictated Date: 12/26/2024 08:08 ET Assigned Physician: Krystle Granger Reviewed and Electronically Signed By: Krystle Granger Signed Date: 12/26/2024 08:11 ET Workstation ID: [id number] Transcribed By: Self Edit Transcribed Date: 12/26/2024 [...] IMPRESSION: No uterine or ovarian abnormality. POS [id number] -------- FINAL REPORT -------- Dictated By: Krystle Granger Dictated Date: 12/26/2024 08:08 ET Assigned Physician: Krystle Granger Reviewed and Electronically Signed By: Krystle Granger Signed Date: 12/26/2024 08:11 ET Workstation ID: [id number] Transcribed By: Self Edit Transcribed Date: 12/26/2024 08:08 ET us Marbella Meredith CNM IMG US PROCEDURES Final Res ult * Chlamydia trachomatis and neisseria gonorrhoeae by tma, thinprep (11/19/2024 2:33 PM EST) N. gonorrhoeae, RNA Probe Negative Negative LAB MICROBIOLOGY METHOD 11/20/2024 12:54 PM EST [facility] Chlamydia, RNA Probe Negative Negative LAB MICROBIOLOGY METHOD 11/20/2024 12:54 PM EST [facility] Broom Cervix uteri structure / Unknown 11/19/2024 2:33 PM EST 11/20/2024 6:59 AM EST Marbella SAHA LAB CYTOLOGY ORDERABLES Fin al Result [facility] [address] [place] [address], [place] [phone] * Trichomonas vaginalis molecular study (11/19/2024 2:33 PM EST) Trichomonas vaginalis Negative Negative LAB MICROBIOLOGY METHOD 11/20/2024 12:44 PM EST [facility] Broom Cervix uteri structure / Unknown 11/19/2024 2:33 PM EST 11/20/2024 6:59 AM EST us Marbella Meredith CNM LAB BLOOD ORDERABLES Final Result [facility] [address] [place] [address], [place] [phone] * Pap smear (11/19/2024 2:33 PM EST) Interpretation Negative for intraepithelial lesion or malignancy 11/22/2024 7:43 PM [facility] General Categorization Negative 11/22/2024 7:43 PM [facility] LMP 11/14/2024 11/22/2024 7:43 PM [facility] Specimen Adequacy Satisfactory for evaluation, endocervical/parisi sformation zone component present 11/22/2024 7:43 PM [facility] Pap Methodology Liquid Based Pap Test 11/22/2024 7:43 PM [facility] Disclaimer The Pap test is a screening test which carries an inherent false negative rate. These test results should be correlated with the patient's clinical findings and history. This Pap test was processed using an automated screening system. Technical cytopathology services provided by [facility], at [address] [place] [address] (CLIA # [id number]/Earle Parker MD, [employer].) 11/22/2024 7:43 PM [facility] Console Pap Interpretation Reported 11/22/2024 7:43 PM [facility] Broom Cervix uteri structure / Unknown 11/19/2024 2:33 PM EST 11/19/2024 2:33 PM EST Marbella Meredith [facility] CYTOLOGY ORDERABLES Fin al Result [facility] [address] [place] [address], * Lipid panel (03/23/2023) LDL/HDL Ratio 3 0 - 4 Triglycerides 48 0 - 150 mg/dL Cholesterol 172 0 - 200 mg/dL HDL 67 >=40 mg/dL LDL Cholesterol 96 0 - 100 mg/dL Blood Venous blood specimen / Unknown us Historical Provider LAB BLOOD ORDERABLES Pinky maria teresa Result from Last 3 Months or Most Recently Relevant to Health Maintenance Insurance [facility] Care Teams Salesperson Automobiles Relationship Specialty Start Date End Date Sofia Haddad NP [address] [place] [address] PCP - General Internal Medicine 01/08/25
--- OUTSIDE RECORDS SUMMARY | 2025-01-09 13:12 | XMS_ITS | Encounter Summary ---
Author Organization [facility] Address [address] [place] [address] Care Team Providers Care Review Scheduling Coordinator Name Role Phone Unknown Primary Care Provider [phone] Encounter Details Date Type Department Care Team (Late st Contact Info) Description 07/13/2024 Scanned Document [address] [place] [phone] Provider, Generic Social History Tobacco Use [...] on filedocumented in this encounter Care Teams Review Scheduling Coordinator Relationship Specialty Start Date End Date Unknown Unknow Provider Address PCP - General 07/13/24 documented as of this encounter
== END 2025-01-09 13:33 | disposition home or self-care (01) ==
LOC: HO.HGI 11:12
PROVIDERS: Visit Provider Nurse Practitioner Family
DX: R10.13 Epigastric pain (principal); K21.9 Gastro-esophageal reflux disease without esophagitis; R11.0 Nausea; R10.32 Left lower quadrant pain; K59.1 Functional diarrhea
CPT/HCPCS: 99204

== ENCOUNTER 2025-01-15 11:11 | Day surgery (SDC) | payer BC, SELFPAY ==
[2025-01-15 11:57] VITALS: BMI 24.6
[2025-01-15] MEDS: Lactated Ringers 1,000 ML 80 ML IVCONT (12:08)
[2025-01-15 12:09] LABS: UPreg QC Valid YES; Urine Pregnancy NEGATIVE (NEGATIVE)
[2025-01-15 12:15] VITALS: BP 112/69; PULSE 77; RESP 18; TEMP 36.8; O2SAT 99
--- NOTE | 2025-01-15 13:20 | P.HPSUR_ITS ---
Pre-Procedural Eval Section A - 24 Hr Update-Section A only Date of Service: 01/15/25 Section B - Complete if H&P > 30 days Chief Complaint: Epigastric pain Relevant Family History (Specify if Yes): No Relevant Social History: None Present Medications: see Short Stay Collaborative assessment Medical History: Significant History (Congenital hypothyroidism) History of Previous Operations: No relevant previous surgery Allergies: Allergies Allergy/AdvReac Type Severity Reaction Status Date / Time amoxicillin Allergy Intermediate Hives Verified 01/15/25 11:57 cimetidine [From Tagamet] AdvReac Vomiting Verified 01/15/25 11:57 Review of Systems Sugical H&P ROS: Negative: Constitution, Cardiovascular, Respiratory, Neurological, Psychiatric, Hem-Onc, Allergic/Immunologic, Gastrointestinal, Genitourinary, Musculoskeletal, Integumentary, Endocrine and Eyes/ Ears/Nose/Throat Exam Surgical H&P Exam: Normal: HEENT, Normal: Heart, Normal: Lungs, Normal: Extremities, Normal: Abdomen, Normal: Skin and Normal: Neurological Plan Diagnosis/Plan: Unchanged I have reviewed the history and physical and performed a pertinent physical examination on my patient. No changes have occurred unless specified. Time Spent With Patient Time: Total time managing care of this patient today ____ minutes.
--- NOTE | 2025-01-15 13:29 | HO.ANESPROP2 ---
HPI - Anesthesia Eval Consult details Narrative: for EGD. PMFSH Active Problems Active Problems: All Active Problems ISAIAH (generalized anxiety disorder) (Acute) MDD (major depressive disorder), recurrent episode, moderate (Acute) Past Medical History Medical History Routine medical exam Patient : No Family History Family History Maternal Grandfather Stomach cancer Family history of problems with anesthesia: No Surgical History Surgical History (Updated 01/15/25 @ 13:25 by Estefani De RN) No pertinent past surgical history History of Problems with Anesthesia: No Social History Social History Household Members: Family Household Members Other:: lives with mother Housing: House Are you a primary pediatric critical care nurse to a significant other at home: No Do you presently have visiting nurse or other home services: No Alcohol intake: never Patient Tobacco Use Status: Never used Tobacco e-Cigarette/Vaping Use: Never Used Second Hand Smoke Exposure: No service: No Sexual orientation: Don't Know Meds Allergies Allergy/AdvReac Type Severity Reaction Status Date / Time amoxicillin Allergy Intermediate Hives Verified 01/15/25 11:57 cimetidine [From Tagamet] AdvReac Vomiting Verified 01/15/25 11:57 Active Medications: Current Medications Lactated Ringer's (Lr) 1,000 mls @ 80 mls/hr IVCONT .[id number] TONI Last Admin: 01/15/25 12:08 Dose: 80 mls/hr Naloxone HCl (Naloxone Hcl 0.4 Mg/Ml Vial) 0.04 mg IVPUSH Q5M PRN PRN Reason: Excessive sedation or RR < 8 Home Medications ?Medication ?Instructions ?Recorded ?Confirmed ?Last Taken ?Type buspirone 5 mg tablet 5 mg PO BID 01/09/25 01/15/25 01/15/25 History levothyroxine 175 mcg tablet 175 mcg PO DAILY 01/09/25 01/15/25 01/15/25 History (Levoxyl) omeprazole 20 mg capsule,delayed 20 mg PO DAILY 01/09/25 01/15/25 01/15/25 History release citalopram 20 mg tablet 20 mg PO DAILY 01/15/25 01/15/25 01/15/25 History Exam Height,Weight and Vital Signs: Height 5 ft 4 in Weight 64.9 kg Last Vital Signs Temp 98.2 F 01/15/25 12:15 Pulse 77 01/15/25 12:15 Resp 18 01/15/25 12:15 BP 112/69 01/15/25 12:15 Pulse Ox 99 01/15/25 12:15 O2 Del Method Room Air 01/15/25 12:15 Pertinent Lab Results Pertinent Lab Results: Laboratory Tests 01/15/25 11:54 Urine Test NEGATIVE Airway Mallampati Class: II TM Dist: >3cm Neck ROM: Full Loose/Missing/Broken Teeth: No Heart: ok Lungs: ok Assessment and Plan Assessment Anesthesia Assessment: Anesthesia Plan Discussed and Chart Reviewed Final Anesthetic Review Family History of Problems with Anesthesia: No History of Problems with Anesthesia: No NPO: Yes ASA Class: II Final Preanesthetic Review: No Changes in Pt Med Stat, Meds/Allgs Chart Reviewed, Consent Obtained/Reviewed and Anes Risks/Benef Reviewed Patient Risk: Low Procedure Risk: Low Anesthetic Plan Anesthetic Plan: Agree w/ Assess. and Plan and TIVA Disposition: Standard PACU
[2025-01-15 13:57] VITALS: BP 105/51; PULSE 70; RESP 20; TEMP 37.2; O2SAT 97
[2025-01-15 14:11] VITALS: BP 112/73; PULSE 77; RESP 20; O2SAT 99
[2025-01-15 14:27] VITALS: BP 106/61; PULSE 63; RESP 16; TEMP 36.8; O2SAT 98
--- NOTE | 2025-01-21 07:05 | W.PM.OPN ---
Operative Note Operative Note Date of Service: 01/16/25 Narrative: Procedure Description: EGD Indication: epigastric pain Anesthesia: MAC FLEXIBLE TRANSORAL UPPER GASTROINTESTINAL ENDOSCOPY UPPER ENDOSCOPY Consent: Indications for the procedure and potential complications of bleeding, perforation, reaction to medications and missed diagnosis were discussed with the patient and informed consent was obtained. Instrument: Olympus GIF H 190 J mid size upper endoscope Monitoring: Vital signs and clinical assessment, continuous EKG monitoring, Pulse oximetry, Carbon Dioxide monitoring and blood pressure monitoring were done throughout the procedure. Procedure: The patient was placed in the left lateral decubitis position and pre-procedure medications were administered and a bite block was placed. The endoscope was inserted into the mouth and advanced under direct vision to the third part of duodenum. A careful inspection was made as the upper endoscope was withdrawn including a retroflexed examination of the proximal stomach; Findings and interventions are described below. Findings: Larynx:normal Esophagus: GE junction at 38 cm, diaphragm hiatus at 38 cm, normal mucosa --bx taken from distal esophagus Stomach: mild gastritis . Biopsies were obtained. Grade 2 flap valve on retroflexed examination of the cardia. Duodenum: Normal bulb and descending duodenum, bx taken Intervention: Biopsies as noted above, Impression/Findings: gastritis PLAN: await bx results
== END 2025-01-15 15:01 | disposition home or self-care (01) ==
PROVIDERS: Anesthesiology; PCP Nurse Practitioner Adult Health; Visit Provider Internal Medicine Gastroenterology
PROC: 0DJ08ZZ Inspection of Upper Intestinal Tract, Via Natural or Artificial Opening Endoscopic (ICD-10-PCS; CPT 43235; principal; 2025-01-15 13:40)
DX: K29.70 Gastritis, unspecified, without bleeding (principal); K21.9 Gastro-esophageal reflux disease without esophagitis; R10.13 Epigastric pain
CPT/HCPCS: 43239; 81025; 88305; 88313; 88342; J2003; J2704; J3010

== ENCOUNTER → 2025-01-15 11:11 | Outpatient (BNV) | payer BC, SELFPAY | PROVIDERS: PCP Nurse Practitioner Adult Health; Visit Provider Internal Medicine Gastroenterology | DX: R10.13 Epigastric pain (principal); K29.70 Gastritis, unspecified, without bleeding | CPT/HCPCS: 43239 ==

== ENCOUNTER 2025-01-29 10:50 | Outpatient (AMB) | payer BC, SELFPAY ==
--- NOTE | 2025-01-29 10:59 | A.OFFVIS_ITS ---
Vital Signs 01/29/25 11:16 Height 5 ft 4 in Weight 139 lb 4 oz BMI 23.9 BP 100/52 L Blood Pressure Location Rt brachial Position Sitting Pulse 64 Pulse Source Pulse Oximeter Pulse Oximetry (%) 97 Oxygen Delivery Method Room Air Intake Visit Reasons: post op aguilar Intake Note: ESTABLISHED PATIENT for s/p EGD w/ TH Chief Complaint; Pt denies any GI concerns at this time. Pt does have UTI concerns but will discuss this with PCP / Urgent Care. Safety Relief Valve Technician Required: No Accompanied by: Self / Same As Patient Allergies amoxicillin Allergy (Intermediate, Verified 01/29/25 10:59) Hives cimetidine [From Tagamet] Adverse Reaction (Verified 01/29/25 10:59) Vomiting HPI HPI post op aguilar: Details: LAST VISIT Postprandial epigastric pain GERD (gastroesophageal reflux disease) Nausea LLQ abdominal pain Diarrhea Plan Patient will continue taking omeprazole, however if she continues to have pain and nausea when eating we can switch to something like Nexium. I will have patient stop taking Maalox as large amount of Maalox most likely is causing her to have diarrhea due to magnesium hydroxide. We will have her take famotidine instead and she can take that at bedtime. Will rule out celiac, inflammatory processes, malabsorption. Patient will be sent for upper GI with barium swallow to check for reflux. Patient will be sent for upper endoscopy. Spoke to surgical schedulers and there is a opening next week on Tuesday and patient will be scheduled then. Patient has significant anxiety, I do recommend taking her BuSpar the day of procedure, however please verify with anesthesia and let patient know. Patient reports that she never had been put under anesthesia before. Patient was recommended to start taking Benefiber dual action biotic with pre and probiotics to help her bulk her stools better. We will hold off on getting her colonoscopy at this time. Patient has no melena, no family history of CRC. I will see patient after the procedure. Patient is agreeable to current plan of care and verbalizes understanding of instructions. She was given the opportunity to ask questions and all questions answered. ? Thank you for allowing me to participate in her care Orders Orders Transglutaminase IgA Today R10.9 Vitamin B12 and Folate Today R19.7 C Reactive Protein Today K58.9 Vitamin D 25-OH (D2 and D3) Today E55.9 FL upper GI w Ba Swallow Today K21.9 Medications New famotidine (Pepcid) 20 mg PO BEDTIME 30 tabs 3RF K21.9 UPPER ENDOSCOPY Findings: Larynx:normal Esophagus: GE junction at 38 cm, diaphragm hiatus at 38 cm, normal mucosa --bx taken from distal esophagus Stomach: mild gastritis . Biopsies were obtained. Grade 2 flap valve on retroflexed examination of the cardia. Duodenum: Normal bulb and descending duodenum, bx taken Intervention: Biopsies as noted above, Impression/Findings: gastritis PLAN: await bx results PATHOLOGY RESULTS Diagnosis A. Duodenum, biopsy: Duodenal mucosa within normal limits. B. Stomach, biopsy: Antral-type and oxyntic mucosa with moderate chronic inactive inflammation; no Helicobacter organisms seen. C. Esophagus, distal, biopsy: Squamous epithelium within normal limits; no inflammation seen TODAY'S VISIT Patient is here today for follow-up and to discuss upper endoscopy results. Patient reports that she has been feeling better, try to switch her diet. Avoiding spicy and fast food. Denies any issues after endoscopy. She is taking omeprazole in the morning and famotidine at bedtime and reports that her symptoms are suppressed. Lab results discussed with patient as well as endoscopy results. We ruled out celiac disease and H pylori. Patient had low vitamin-D level and started taking 2000 units daily. Patient denies any other GI concerning symptoms. [facility] Medical History Routine medical exam Surgical History No pertinent past surgical history Family History Maternal Grandfather Stomach cancer Social History Household Members: Family Household Members Other:: lives with mother Housing: House Are you a primary foster care worker to a significant other at home: No Do you presently have visiting nurse or other home services: No Alcohol intake: never Patient Tobacco Use Status: Never used Tobacco e-Cigarette/Vaping Use: Never Used Second Hand Smoke Exposure: No service: No Sexual orientation: Don't Know Review of Systems Const Denies weight gain and Denies weight loss ENT Reports no additional complaints, Denies dysphagia and Denies odynophagia Card Reports no additional complaints Resp Reports no additional complaints GI Denies abdominal pain, Denies belching, Denies melena, Denies bloating, Denies change in bowel habits, Denies dysphagia, Denies excessive flatus, Denies dyspepsia, Reports heartburn (Occasional with spicy food), Denies diarrhea, Denies loose stools, Denies nausea, Denies odynophagia and Denies vomiting Musc Reports no additional complaints Neuro Reports no additional complaints Psych Reports no additional complaints Endo Reports no additional complaints Physical Exam Const General: healthy appearing, no acute distress and well developed Nutritional Appearance: well nourished Orientation/consciousness: patient oriented x3 Resp Effort & Inspection: normal respiratory effort, able to speak in complete sentences, no tracheal deviation and symmetric chest movement Auscultation: clear to auscultation bilaterally Cardio Rate: regular rate GI Inspection: Yes normal to inspection and No distended Palpation (GI): Soft to palpation, not firm, nontender and No hepatosplenomegaly present Auscultation: normal bowel sounds General: Yes no CVA tenderness Back/Spine/Pelvis Back: no CVA tenderness Skin General skin exam: elasticity normal, turgor normal and dry skin Neuro General: patient oriented x3 Psych Appearance: grossly normal Mental Status: mental status grossly normal Affect: Anxious affect present (Mild) Results Reviewed Results Reviewed: Laboratory Tests 01/09/25 12:40 C-Reactive Protein < 0.04 Vitamin B12 789 25-OH Vitamin D Total 19 L 25-Hydroxy Vitamin D2 <4 Folate 10.2 Tiss Transglutamin IgA <1.0 Assessment & Plan Assessment & Plan (1) Postprandial epigastric pain: Code(s): R10.13 - Epigastric pain (2) GERD (gastroesophageal reflux disease): Code(s): K21.9 - Gastro-esophageal reflux disease without esophagitis Qualifiers: Esophagitis presence: without esophagitis Qualified Code(s): K21.9 - Gastro-esophageal reflux disease without esophagitis (3) Nausea: Code(s): R11.0 - Nausea (4) LLQ abdominal pain: Code(s): R10.32 - Left lower quadrant pain (5) Diarrhea: Code(s): R19.7 - Diarrhea, unspecified Qualifiers: Diarrhea type: functional diarrhea Qualified Code(s): K59.1 - Functional diarrhea (6) Chronic gastritis: Code(s): K29.50 - Unspecified chronic gastritis without bleeding Qualifiers: Gastritis type: unspecified gastritis Gastritis bleeding: without bleeding Qualified Code(s): K29.50 - Unspecified chronic gastritis without bleeding Plan Upper endoscopy results discussed with patient. No H pylori, no celiac disease. Chronic inactive gastritis. Patient can continue taking omeprazole for another month or so. Can take famotidine as needed. Patient will try to wean herself off omeprazole. Upper GI series scheduled for March. ? Eating smaller meals and more often encouraged.? Avoid dietary triggers and late night snacking.? Staying upright for minimum 3 hours after meals discussed with patient. Patient will follow-up with does on as needed basis. She is agreeable to this plan and verbalizes understanding of instructions. She was given the opportunity to ask questions and all questions answered. Thank you for allowing me to participate in her care Medications: New omeprazole 20 mg PO DAILY 30 caps 1RF Coding Level of Care Code Est Pt Level 4 (79011) Diagnoses Postprandial epigastric pain R10.13 Gastroesophageal reflux disease without esophagitis K21.9 Esophagitis presence: without esophagitis Nausea R11.0 LLQ abdominal pain R10.32 Functional diarrhea K59.1 Diarrhea type: functional diarrhea Chronic gastritis without bleeding, unspecified gastritis type K29.50 Gastritis type: unspecified gastritis Gastritis bleeding: without bleeding Time Spent (min) 35 Comment 25 minutes spent with patient and additional 10 minutes spent reviewing her records
[2025-01-29 11:16] VITALS: BP 100/52; PULSE 64; O2SAT 97; BMI 23.9
--- OUTSIDE RECORDS SUMMARY | 2025-01-29 13:00 | XMS_ITS | Encounter Summary ---
Author Organization [facility]ly [facility] Address [address] [place] [address] Care Team Providers Care Mobile Home Park Manager Name Role Phone Unknown Primary Care Provider [phone] Encounter Details Date Type Department Care Team (Late st Contact Info) Description 07/13/2024 Scanned Document [address] [place] [id number] Provider, Generic Social History Tobacco Use [...] on filedocumented in this encounter Care Teams Mobile Home Park Manager Relationship Specialty Start Date End Date Unknown Unknow Provider Address PCP - General 07/13/24 documented as of this encounter
--- OUTSIDE RECORDS SUMMARY | 2025-01-29 13:00 | XMS_ITS | Clinical Summary ---
Author Organization [address] Address [address] [place] [address] Care Team Providers Care Summer Clerk Name Role Phone Pcp, Does Not Have A Primary Care Provider Unava ilable Allergies Active Allergy Reactions Criticality Noted Date Comments Amoxicillin Hives High 04/26/2024 Cimetidine Nausea And Vomiting Low 01/24/2006 Medications ondansetron (ZOFRAN-ODT) 4 mg disintegrating tablet 1 tablet (4 mg total) by Transmucosal route. 01/01/20 25 Active LEVOXYL 175 mcg tablet Take 1 tablet (175 mcg total) by mouth daily. 11/28/19 25 Active promethazine (PHENERGAN) 6.25 mg/5 mL syrup Take 5 mLs (6.25 mg total) by mouth every 6 (six) hours as needed for nausea for up to 5 days. 100 mL 01/02/20 25 025 Active Problems Problem Noted Date Diagnosed Date Nausea 01/01/2025 Congenital iodine-deficiency syndrome 11/19/2024 MDD (major depressive disord er), recurrent, in partial remission (HC CODE) 11/19/2024 Generalized anxiety disorder with panic attacks 05/13/2022 Hypothyroidism 10/02/2007 Encounters Date Type Department Care Team Description 01/04/2025 Telephone [facility] [address] [place] [address] Rosibel Warner PA Results (Left vm) 01/01/2025 5:30 PM EST Office Visit [facility] [address] [place] [id number] Antonio Sequeira PA Nausea (Primary Dx) from Last 3 Months Immunizations Name Administration Dates Next Due COVID-19 Vaccine - PFIZER 04/23/2021,02/24/2021 DTaP 08/23/2005, 3,01/29/2002,11/29,2001 FRxV-Rix-HFI 11/01/2002, 2,2001,09/19 HPV9 12/17/2019,08/06/2019,06/04/2019 Hep B, adolescent or pediatric 05/25/2002,2000,2001 Influenza, split virus, triv alent, Preservative Free 11/20/2012,11/18/2011,10/28/2010,10/22,10/09/2008,10/02/2007,09/08/2006 ,08/26/2005 MMR 08/23/2005,07/31/2002 Meningococcal MCV4P - Menactra 06/01/2018,2012 Pneumococcal conjugate PCV 7 01/29/2002,11/29/19 02,2001 Polio (IPV) 08/23/2005, 2,2001,09/19 Tdap 05/19/2022,11/20/2012 Varicella, live 10/09/2008,07/31/2002 Family History Relation Name Status Comments Father Alive Mother Alive Social History Tobacco Use Types Packs/Day Years Used Date Smoking Tobacco: Never Smokeless Tobacco: Never Tobacco Cessation:Counseling Given: Not Answered Alcohol Use Standard Drinks/Week Comments Never 0 (1 standard drink = 0.6 oz pur e alcohol) Comments Unknown Sex and Gender Information Value Date Recorded Sex Assigned at Not on file Legal Sex Female 5:25 PM EST Gender Identity Not on file Sexual Orientation Not on file Last Filed Vital Signs Vital Sign Reading Time Taken Comments Blood Pressure 129/78 01/01/2025 5:45 PM EST Pulse 73 01/01/2025 5:45 PM EST Temperature 36.9 ??C (98.5 ??F) 01/01/2025 5:45 PM ES T Respiratory Rate 14 01/01/2025 5:45 PM EST Oxygen Saturation 99% 01/01/2025 5:45 PM EST Inhaled Oxygen Concentration - - Weight 63.5 kg (140 lb) 01/01/2025 5:45 PM EST Height - - Body Mass Index - - Plan of Treatment Health Maintenance Due Date Last Done Comments HIV screening 2014 Hepatitis C screening 2019 Cervical cancer screening 2022 Influenza vaccine 05/31/2024 11/20/2012, , 10/28/2010, Additional history exists Covid-19 vaccine series ( - 2023- season) 2024 04/23/2021, 02/24/2021 Chlamydia screening 11/19/2025 11/19/2024 DTaP/TDaP Vaccines (8 - Td or Tdap) 05/19/2032 05/19/2022, 11/20/2012, 08/23/2005, Additional history exists Tetanus adult (Td q 10,TDAP once) 05/19/2032 05/19/2022, 11/20/2012, 08/23/2005, Additional history exists RSV Immunization (1 - 1-dose 75+ series) 2076 Pneumococcal Vaccine (2 - 49 years) Aged Out 01/29/2002, 2001, 2001 No longer eligible based on patient's age to complete this topic Hepatitis B vaccine series Completed 05/25, 2001, 2001 HIB Vaccines Completed 11/01/2002, 10/2001, 2001, Additional history exists IPV Vaccines Completed 08/23/2005, 12/2002, 05/25/2002, Additional history exists MMR Vaccines Completed 08/23/2005, 07/31/2002 Varicella Vaccines Completed 10/09/2008, 07/31/2002 Meningococcal Vaccine Completed 06/01/2018, 013 HPV vaccine series Completed 12/17/2019, 1 , 06/04/2019 Hepatitis A Vaccines Aged Out No long er eligible based on patient's age to complete this topic Rotavirus Vaccines Aged Out No longer eligible based on patient's age to complete this topic Procedures Procedure Name Priority Date/Time Associated Diagnosis Comments H. PYLORI BREATH TEST Routine 01/03/2025 12:31 PM EST Nausea from Last 3 Months Results * H. pylori breath test (01/03/2025 12:31 PM EST) Results: NOT DETECTED NOT DETECTED [facility] Comment: Antimicrobials, proton pump inhibitors, and bismuth preparations are known to suppress H. pylori, and ingestion of these prior to H. pylori diagnostic testing may lead to false negative results. If clinically indicated, the test may be repeated on a new specimen obtained two weeks after discontinuing treatment. However, a positive result is still clinically valid. Breath EXHALED AIR SPECIMEN / Unknown 01/03/2025 12:31 PM EST 01/03/2025 12:33 PM EST Narrative Resulting Agency Comment Performing Lab: ?Site ID: [id number] ?Name: [facility] ?Address: [address] [place] [id number] ?Director: Vinh Carlson M.D. us [facility] - GENERAL ORDERABL ES Final Result [facility] [address] [place] [address], [facility] from Last 3 Months Insurance BS Member Subscriber Plan / Payer (Ef fective 2004-Present) Name:Ros Sousa Relation to Subscriber:Child Name:EVA SOUSA Date of :1976 (Home) Address: [address] [id number] Payer ID:[id number] (NAIC) Type:Not on file Address: [address] [place] [phone] Care Teams Summer Clerk Relationship Specialty Start Date End Date Pcp, Does Not Have A PCP - General 01/01/25
--- OUTSIDE RECORDS SUMMARY | 2025-01-29 13:00 | XMS_ITS | Clinical Summary ---
Author Organization Patient Business Ser vice [facility] Address [address] [place] [address] Care Team Providers Care Assistant Corporate Controller Name Role Phone Sofia Haddad NP Primary Care Provider Allergies Active Allergy Reactions Criticality Noted Date Comments Amoxicillin Hives Low 04/26/2024 Cimetidine Nausea And Vomiting 01/24/2006 Medications levothyroxine (LevoxyL) 150 mcg tablet TAKE 1 TABLET BY MOUTH EVERY DAY Active norethindrone-ethi nyl estradiol (Junel ,) 1-20 mg-mcg per tablet [...] or vomiting. 30 tablet 01/03/20 25 Active ondansetron ODT (ZOFRAN-ODT) 4 mg disintegrating tablet Dissolve 1 tablet (4 mg total) on top of the tongue every 8 (eight) hours if needed for nausea or vomiting. 30 tablet 12/27/19 25 025 Discontinu ed(Reorder ) ondansetron ODT (ZOFRAN-ODT) 4 mg disintegrating tablet Dissolve 1 tablet (4 mg total) on top of the tongue every 8 (eight) hours if needed for nausea or vomiting. 30 tablet 01/01/20 25 025 Discontinu ed(Reorder ) metoclopramide (REGLAN) 5 mg tablet Take 1 tablet (5 mg total) by mouth 4 (four) times a day for 10 days. 40 each 01/03/20 25 025 Active Problems Problem Noted Date [...] 2:22 PM EST - 01/02/2025 4:25 PM [facility] Emergency [address] [place] [phone] Abdominal pain, epigastric (Primary Dx) Discharge Disposition: Home or Self Care 01/02/2025 Telephone Obstetrics and Gynecology [address] [phone] Marbella Meredith CNM Med Refill 01/01/2025 9:08 PM EST - 01/01/2025 11:58 PM [facility] Emergency [address] [place] [phone] Jose Armando Umana MD PUD (peptic ulcer disease) (Primary Dx) Discharge Disposition: Home or Self Care 12/25/2024 5:22 PM EST - 12/25/2024 11:59 PM EST Hospital Encounter Radiology Department - [address] [phone] Dysmenorrhea Discharge Disposition: Home or Self Care 12/11/2024 Telephone Obstetrics and Gynecology - [address] [phone] Marbella Meredith CNM Med Refill 12/10/2024 Telephone Obstetrics and Gynecology - [address] [phone] Marbella Meredith CNM 11/21/2024 Telephone Obstetrics and Gynecology - [address] [phone] Marbella Meredith CNM Request For Order(s) 11/19/2024 2:00 PM EST Office Visit Obstetrics and Gynecology - [address] [phone] Marbella Meredith CNM Women's annual routine gynecological examination (Primary Dx); Dysmenorrhea; Hypothyroidism, unspecified type from Last 3 Months Immunizations Name Administration Dates Next Due DTaP (Infanrix) 6wks to less than 7yo ,11/01/2002,01/29/2002,11/29,2001 [id number] (Pentacel) 2mo to less than 5yo 11/01/2002,01/29/2002,2001,09/19 [...] 12mo and older 08/23/2005,07/31/2002 Meningococcal MCV4P 06/01/2018,11/20/2012 Mob.ly SARS-CoV-2 COVID-19, mRNA, LNP-S, preservative free 04/23/2021,02/24/2021 [...] Gokul Gallardo Alcohol abuse Mother's Brother 2 Edicathy Gallardo Alcohol abuse Mother's Sister Mercedez Gallardo Other: MGGM with MD age 35 and Mother's side Breast cancer Neg Hx Colon cancer Neg Hx Kidney cancer Neg Hx Ovarian cancer Neg Hx Pancreatic cancer Neg Hx Prostate cancer Neg Hx Uterine cancer Neg Hx Relation Name Status Comments Father Alive 06/04/1973 Maternal Grandfather Prem Gallardo Mother Alive 05/19/1976 Mother's Brother 1 Gokul Gallardo Mother's Brother 2 Edicathy Gallardo Mother's Sister Mercedez Gallardo Mother's side [...] your loved ones. For example, child care counselor or elderly care for an older adult? [...] 01/02/2025 4:13 PM EST Plan of Treatment Health Maintenance Due Date [...] 05/25/2002, 2001, 2001 HIB Vaccines Completed 11/01/2002, 10/2001, [...] on 01/01/2025 10:33 PM. Workstation Name - [id number] -------- FINAL REPORT -------- Dictated By: Darrius Frausto Dictated Date: 01/01/2025 23:31 ET Assigned Physician: Darrius Frausto Reviewed and Electronically Signed By: Darrius Frausto Signed Date: 01/01/2025 23:33 ET Workstation ID: [id number] Transcribed By: Self Edit Transcribed Date: 01/01/2025 [...] Frausto on 01/01/2025 10:33 PM.Workstation Name - [id number] -------- FINAL REPORT -------- Dictated By: Darrius Frausto Dictated Date: 01/01/2025 23:31 ET Assigned Physician: Darrius Frausto Reviewed and Electronically Signed By: Darrius Frausto Signed Date: 01/01/2025 23:33 ET Workstation ID: [id number] Transcribed By: Self Edit Transcribed Date: 01/01/2025 [...] ED Physician in the absence of a reduction furnace operator: yes ?? Interpretation: ??Interpretation: normal ?Details: ??Normal sinus rhythm with a ventricular rate of 61 bpm. ??PACs occasionally seen. ??Normal WI, QRS, QTc, axis. ??No acute ischemic changes. us Jose Armando Umana MD ECG ORDERABLES Final Result * ECG 12 lead (01/01/2025 9:37 PM EST) Pathologist [facility] Department Ventricular Rate ECG 61 BPM GEMUSE Atrial Rate 61 BPM GEMUSE P-R Interval 140 ms GEMUSE QRS Duration 86 ms GEMUSE Q-T Interval 412 ms GEMUSE QTc 414 ms GEMUSE P Wave Evans 35 degrees GEMUSE R Evans 39 degrees GEMUSE T Evans 28 degrees GEMUSE ECG Interpretation Sinus rhythm with premature atrial complexes Otherwise normal ECG No previous ECGs available Confirmed by Nikko Newsome ([id number]) on 01/02/2025 2:12:49 PM GEMUSE 01/01/2025 9:37 PM EST 01/02/2025 2:12 PM EST us Jose Armando Umana MD ECG ORDERABLES Final Result GEMUSE * (ABNORMAL) CBC auto differential (01/01/2025 9:21 PM EST) [facility] WBC 7.4 4.0 - 10.5 K/mcL LAB HEMETOLOGY METHOD 01/01/2025 9:[address] [facility] RBC 4.46 4.20 - 5.40 M/mcL LAB HEMETOLOGY METHOD 01/01/2025 9:35 PM [facility] Hemoglobin 13.3 12.5 - 16.0 g/dL LAB HEMETOLOGY METHOD 01/01/2025 9:35 PM [facility] Hematocrit 39.2 37.0 - 47.0 % LAB HEMETOLOGY METHOD 01/01/2025 9:[address] [facility] MCV 87.9 78.0 - 100.0 FL LAB HEMETOLOGY METHOD 01/01/2025 9:35 PM [facility] MCH 29.8 25.0 - 33.0 pcg LAB HEMETOLOGY METHOD 01/01/2025 9:[address] [facility] MCHC 33.9 32.0 - 36.0 g/dL LAB HEMETOLOGY METHOD 01/01/2025 9:35 PM [facility] RDW 11.4(L) 12.1 - 16.2 % LAB HEMETOLOGY METHOD 01/01/2025 9:35 PM [facility] Platelets 271 150 - 450 K/mcL LAB HEMETOLOGY METHOD 01/01/2025 9:35 PM [facility] MPV 9.1 7.4 - 11.4 FL LAB HEMETOLOGY METHOD 01/01/2025 9:35 PM [facility] Neutrophils Relative 40.4(L) 44.0 - 74.0 % LAB HEMETOLOGY METHOD 01/01/2025 9:35 PM [facility] Lymphocytes Relative 50.0(H) 20.0 - 48.0 % LAB HEMETOLOGY METHOD 01/01/2025 9:35 PM [facility] Monocytes Relative 7.4 2.0 - 12.0 % LAB HEMETOLOGY METHOD 01/01/2025 9:35 PM [facility] Eosinophils Relative 1.4 0.0 - 6.0 % LAB HEMETOLOGY METHOD 01/01/2025 9:35 PM [facility] Basophils Relative 0.7 0.0 - 2.0 % LAB HEMETOLOGY METHOD 01/01/2025 9:35 PM [facility] Neutrophils Absolute 2.99 1.80 - 7.80 K/mcL LAB HEMETOLOGY METHOD 01/01/2025 9:35 PM [facility] Lymphocytes Absolute 3.70(H) 1.00 - 3.20 K/mcL LAB HEMETOLOGY METHOD 01/01/2025 9:35 PM [facility] Monocytes Absolute 0.55 0.00 - 0.80 K/mcL LAB HEMETOLOGY METHOD 01/01/2025 9:[address] [facility] Eosinophils Absolute 0.10 0.00 - 0.50 K/[facility] LAB HEMETOLOGY METHOD 01/01/2025 9:[address] [facility] Basophils Absolute 0.05 0.00 - 0.20 K/[facility] LAB HEMETOLOGY METHOD 01/01/2025 9:[address] [facility] Blood Venous blood specimen / Unknown Venipuncture / Unknown 01/01/2025 9:21 PM EST 01/01/2025 9:33 PM EST Jose Armando Umana MD LAB BLOOD ORDERABLES Final Res ult Performing Organization Address [facility]/ZIP Co de Phone Number [facility] [address] [place] [address], [place] [phone] * Lipase (01/01/2025 9:21 PM EST) Pathologist [facility] Lipase 19 11 - 82 unit/L LAB CHEMISTRY METHOD 01/01/2025 9:[address] [facility] Blood Venous blood specimen / Unknown Venipuncture / Unknown 01/01/2025 9:21 PM EST 01/01/2025 9:33 PM EST Jose Armando Umana MD LAB BLOOD ORDERABLES Final Res ult [facility] [address] [place] [address], [place] [phone] * Hepatic function panel (01/01/2025 9:21 PM EST) Total Protein 7.1 6.4 - 8.5 g/dL LAB CHEMISTRY METHOD 01/01/2025 9:[address] [facility] Albumin 4.3 3.5 - 5.0 g/dL LAB CHEMISTRY METHOD 01/01/2025 9:[address] [facility] Total Bilirubin 0.4 0.3 - 1.0 mg/dL LAB CHEMISTRY METHOD 01/01/2025 9:57 PM [facility] Bilirubin, Direct 0.1 0.0 - 0.2 mg/dL LAB CHEMISTRY METHOD 01/01/2025 9:57 PM [facility] Bilirubin, Indirect 0.3 mg/dL LAB CHEMISTRY METHOD 01/01/2025 9:57 PM [facility] ALT (SGPT) 12 7 - 52 unit/L LAB CHEMISTRY METHOD 01/01/2025 9:57 PM [facility] AST (SGOT) 17 5 - 40 unit/L LAB CHEMISTRY METHOD 01/01/2025 9:57 PM [facility] Alkaline Phosphatase 39 34 - 104 unit/L LAB CHEMISTRY METHOD 01/01/2025 9:57 PM [facility] Blood Venous blood specimen / Unknown Venipuncture / Unknown 01/01/2025 9:21 PM EST 01/01/2025 9:33 PM EST us Jose Armando Umana MD LAB BLOOD ORDERABLES Final Res ult [facility] [address] [place] [address], [place] [phone] * Basic metabolic panel (01/01/2025 9:21 PM EST) Sodium 136 135 - 145 mmol/L LAB CHEMISTRY METHOD 01/01/2025 9:57 PM [facility] Potassium 3.8 3.5 - 5.1 mmol/L LAB CHEMISTRY METHOD 01/01/2025 9:57 PM [facility] Chloride 103 98 - 107 mmol/L LAB CHEMISTRY METHOD 01/01/2025 9:57 PM [facility] CO2 27 24 - 32 mmol/L LAB CHEMISTRY METHOD 01/01/2025 9:57 PM [facility] Anion Gap 6 5 - 14 LAB CHEMISTRY METHOD 01/01/2025 9:57 PM [facility] Glucose 91 70 - 199 mg/dL LAB CHEMISTRY METHOD 01/01/2025 9:57 PM [facility] BUN 17 7 - 17 mg/dL LAB CHEMISTRY METHOD 01/01/2025 9:57 PM [facility] Creatinine 0.96 0.50 - 1.00 mg/dL LAB CHEMISTRY METHOD 01/01/2025 9:57 PM [facility] eGFR 85 >=60 mL/min/1. 73m2 LAB CHEMISTRY METHOD 01/01/2025 9:[address] [facility] Comment:Calculation based on the??Chronic Kidney Disease Epidemiology Collaboration (CKD-EPI) equation refit??without adjustment for race. BUN/Creatinine Ratio 17.7 12.0 - 20.0 LAB CHEMISTRY METHOD 01/01/2025 9:57 PM [facility] Calcium 9.2 8.4 - 10.2 mg/dL LAB CHEMISTRY METHOD 01/01/2025 9:57 PM [facility] Blood Venous blood specimen / Unknown Venipuncture / Unknown 01/01/2025 9:21 PM EST 01/01/2025 9:33 PM EST us Jose Armando Umana MD LAB BLOOD ORDERABLES Final Res ult [facility] [address] [place] [address], [place] [phone] * (ABNORMAL) Urinalysis with reflex microscopic and culture (01/01/2025 9:18 PM EST) Color, Urine Yellow Colorless, Yellow LAB URINALYSIS - AUTOMATED METHOD 01/01/2025 9:36 PM [facility] Clarity, Urine Slightly Cloudy(A) Clear LAB URINALYSIS - AUTOMATED METHOD 01/01/2025 9:36 PM [facility] Specific [place] Urine >=1.030 1.005 - 1.030 LAB URINALYSIS - AUTOMATED METHOD 01/01/2025 9:36 PM [facility] pH, Urine 5.5 5.0 - 8.0 pH LAB URINALYSIS - AUTOMATED METHOD 01/01/2025 9:36 PM [facility] Leukocytes, Urine Negative Negative WBCs/mcL LAB URINALYSIS - AUTOMATED METHOD 01/01/2025 9:36 PM [facility] Nitrite, Urine Negative Negative LAB URINALYSIS - AUTOMATED METHOD 01/01/2025 9:36 PM [facility] Protein, Urine 30(A) Negative mg/dL LAB URINALYSIS - AUTOMATED METHOD 01/01/2025 9:36 PM [facility] Glucose, Urine Negative Negative mg/dL LAB URINALYSIS - AUTOMATED METHOD 01/01/2025 9:36 PM [facility] Ketones, Urine Negative Negative mg/dL LAB URINALYSIS - AUTOMATED METHOD 01/01/2025 9:36 PM [facility] Blood, Urine Trace(A) Negative mg/dL LAB URINALYSIS - AUTOMATED METHOD 01/01/2025 9:36 PM [facility] Urine Urine specimen obtained by clean catch procedure / Unknown Non-blood Collection / Unknown 01/01/2025 9:18 PM EST 01/01/2025 9:33 PM EST us Jose Armando Umana MD LAB URINE ORDERABLES Final Res ult Performing Organization Address [facility]/ZIP Co de Phone Number [facility] [address] [place] [address], [place] [phone] * (ABNORMAL) Urinalysis microscopic reflex urine culture (01/01/2025 9:18 PM EST) RBC, Urine 4(H) 0 - 3 /HPF 01/01/2025 9:[address] [facility] WBC, Urine 4 0 - 5 /HPF 01/01/2025 9:[address] [facility] Bacteria, Urine 1+(A) None /HPF 9:[address] [facility] Squamous Epithelial, Urine 6(H) 0 - 5 /HPF 01/01/2025 9:[address] [facility] Mucus, UA 1+ None /LPF 01/01/2025 9:[address] [facility] Urine Urine specimen obtained by clean catch procedure / Unknown Non-blood Collection / Unknown 01/01/2025 9:18 PM EST 01/01/2025 9:33 PM EST Jose Armando Umana MD LAB URINE ORDERABLES Final Res ult Performing Organization Address [facility]/ZIP Co de Phone Number [facility] [address] [place] [address], [place] [phone] * Culture urine (01/01/2025 9:18 PM EST) Culture, Urine Mixed urogenital otto, no uropathogens present. Suggest repeat specimen, if clinically indicated. 01/03/2025 8:32 AM EST [facility] Urine Urine specimen obtained by clean catch procedure / Unknown Non-blood Collection / Unknown 01/01/2025 9:18 PM EST 01/01/2025 9:40 PM EST us Jose Armando Umana MD LAB MICROBIOLOGY - GENERAL ORD ERABLES Final Result [facility] [address] [place] [address], [place] [phone] * US Pelvis Non OB Complete w Transvaginal (12/25/2024 5:55 PM EST) Anatomical Region Laterality Modality Body, Pelvis Ultrasound 12/26/2024 8:08 AM EST Impressions 12/26/2024 8:11 AM EST No uterine or ovarian abnormality. POS [id number] -------- FINAL REPORT -------- Dictated By: Krystle Granger Dictated Date: 12/26/2024 08:08 ET Assigned Physician: Krystle Granger Reviewed and Electronically Signed By: Krystle Granger Signed Date: 12/26/2024 08:11 ET Workstation ID: [id number] Transcribed By: Self Edit Transcribed Date: 12/26/2024 [...] IMPRESSION: No uterine or ovarian abnormality. POS [id number] -------- FINAL REPORT -------- Dictated By: Krystle Granger Dictated Date: 12/26/2024 08:08 ET Assigned Physician: Krystle Granger Reviewed and Electronically Signed By: Krystle Granger Signed Date: 12/26/2024 08:11 ET Workstation ID: [id number] Transcribed By: Self Edit Transcribed Date: 12/26/2024 08:08 ET Marbella Meredith CNM IMG US PROCEDURES Final Res ult * Chlamydia trachomatis and neisseria gonorrhoeae by tma, thinprep (11/19/2024 2:33 PM EST) N. gonorrhoeae, RNA Probe Negative Negative LAB MICROBIOLOGY METHOD 11/20/2024 12:54 PM EST [facility] Chlamydia, RNA Probe Negative Negative LAB MICROBIOLOGY METHOD 11/20/2024 12:54 PM EST [facility] Broom Cervix uteri structure / Unknown 11/19/2024 2:33 PM EST 11/20/2024 6:59 AM EST Marbella Meredith CNM LAB CYTOLOGY ORDERABLES Fin al Result [facility] [address] [place] [address], * Trichomonas vaginalis molecular study (11/19/2024 2:33 PM EST) Trichomonas vaginalis Negative Negative LAB MICROBIOLOGY METHOD 11/20/2024 12:44 PM EST [facility] Broom Cervix uteri structure / Unknown 11/19/2024 2:33 PM EST 11/20/2024 6:59 AM EST Marbella Meredith [facility] BLOOD ORDERABLES Final Result [facility] [address] [place] [address], * Pap smear (11/19/2024 2:33 PM EST) Interpretation Negative for intraepithelial lesion or malignancy 11/22/2024 7:43 PM [facility] General Categorization Negative 11/22/2024 7:43 PM [facility] LMP 11/14/2024 11/22/2024 7:43 PM [facility] Specimen Adequacy Satisfactory for evaluation, endocervical/parisi sformation zone component present 11/22/2024 7:43 PM [facility] Pap Methodology Liquid Based Pap Test 11/22/2024 7:43 PM [facility] Disclaimer The Pap test is a screening test which carries an inherent false negative rate. These test results should be correlated with the patient's clinical findings and history. This Pap test was processed using an automated screening system. Technical cytopathology services provided by [facility], at [address] [place] [address] (CLIA # [id number]/Earle Parker MD, Cold Water Machine Operator.) 11/22/2024 7:43 PM [facility] Console Pap Interpretation Reported 11/22/2024 7:43 PM [facility] Broom Cervix uteri structure / Unknown 11/19/2024 2:33 PM EST 11/19/2024 2:33 PM EST Marbella Meredith CNM LAB CYTOLOGY ORDERABLES Fin al Result [facility] [address] [place] [address], [place] [phone] * Lipid panel (03/23/2023) LDL/HDL Ratio 3 0 - 4 Triglycerides 48 0 - 150 mg/dL Cholesterol 172 0 - 200 mg/dL HDL 67 >=40 mg/dL LDL Cholesterol 96 0 - 100 mg/dL Blood Venous blood specimen / Unknown Historical Provider LAB BLOOD ORDERABLES Pinky l Result from Last 3 Months or Most Recently Relevant to Health Maintenance Insurance [facility] Care Teams Assistant Corporate Controller Relationship Specialty Start Date End Date Sofia Haddad NP [address] [place] [address] PCP - General Internal Medicine 01/08/25
--- OUTSIDE RECORDS SUMMARY | 2025-01-29 13:00 | XMS_ITS | Encounter Summary ---
Author Organization Formerly [facility] Address [address] [place] [address] Care Team Providers Care General Utility Machine Operator Name Role Phone Unknown Primary Care Provider [phone] Encounter Details Date Type Department Care Team (Late st Contact Info) Description 07/13/2024 Scanned Document [address] [place] [phone] Provider, Generic Social History Tobacco Use [...] on filedocumented in this encounter Care Teams General Utility Machine Operator Relationship Specialty Start Date End Date Unknown Unknow Provider Address PCP - General 07/13/24 documented as of this encounter
--- OUTSIDE RECORDS SUMMARY | 2025-01-29 13:00 | XMS_ITS | Encounter Summary ---
Author Organization [facility] Address [address] [place] [address] Phone Care Team Providers Care Credit Analyst Name Role Phone Pcp, Does Not Have A Primary Care Provider Unava ilable Reason for Visit * Reason Onset Date Comments Results 01/04/2025 Left vm Encounter Details Date Type Department Care Team (Late Contact Info) Description 01/04/2025 Telephone [facility] [address] [place] [id number] Rosibel Warner PA [address] [place] [phone] Results (Left vm) Social History Tobacco Use Types Packs/Day Years Used Date Smoking Tobacco: Never Smokeless Tobacco: Never Alcohol Use Standard Drinks/Week Comments Never 0 (1 standard drink = 0.6 oz pur e alcohol) Comments Unknown Sex and Gender Information Value Date Recorded Sex Assigned at Not on file Legal Sex Female 5:25 PM EST Gender Identity Not on file Sexual Orientation Not on file documented as of this encounter Miscellaneous Notes * Telephone Encounter - Rosibel Warner PA - 01/04/2025 7:40 PM EST Left a voicemail documented in this encounter Plan of Treatment Not on file documented as of this encounter Visit Diagnoses Not on filedocumented in this encounter Care Teams Credit Analyst Relationship Specialty Start Date End Date Pcp, Does Not Have A PCP - General 01/01/25 documented as of this encounter
--- OUTSIDE RECORDS SUMMARY | 2025-01-29 13:00 | XMS_ITS | Clinical Summary ---
Author Organization Formerly [facility] Address [address] [place] [address] Care Team Providers Care Compliance Intern Name Role Phone Unknown Primary Care Provider [phone] Allergies No known active allergies Medications Medication Sig Dispensed Refills Start Date End Date Status Levoxyl 150 MCG tablet Take 150 mcg by mouth. 05/28/2024 Active hydrOXYzine HCl (ATARAX) 10 MG tablet Take 10 mg by mouth as needed for anxiety. Active Encounters Date Type Department Care Team Description 01/10/[address] [phone] Roderick Garcia MD 01/10/2025 Transcribe Orders [address] [phone] Padmini Mccarthy APRN Epigastric pain (Primary Dx) from Last 3 Months Social History Tobacco Use Types Packs/Day Years [...] Influenza Vaccine 05/31/2024 COVID-19 Vaccine (1 - 2023-2 5 season) 2024 Pneumococcal Vaccine: Pediat colin (0-5 Years) and At-Risk Patients (6 to 49 Years) Aged Out No longer eligible b ased on patient's age to complete this topic Care Teams Compliance Intern Relationship Specialty Start Date End Date Unknown Unknow Provider Address PCP - General 07/13/24
== END 2025-01-29 11:26 | disposition home or self-care (01) ==
LOC: HO.HGI 10:51
PROVIDERS: PCP Nurse Practitioner Adult Health; Visit Provider Nurse Practitioner Family
DX: R10.13 Epigastric pain (principal); K21.9 Gastro-esophageal reflux disease without esophagitis; R11.0 Nausea; R10.32 Left lower quadrant pain; K59.1 Functional diarrhea; K29.50 Unspecified chronic gastritis without bleeding
CPT/HCPCS: 99214